=== PATIENT | male | born 1960 | race Caucasian/White ===

== ENCOUNTER 2018-04-28 19:00 | Inpatient (IN) | payer OTHER ==
[~2018-04-28] VITALS: Ht 182.9 cm; Wt 128.8 kg
[~2018-04-28 19:00] MED LIST: ACET325T9 PO; AMLO10TA6 PO; BLOO-1280 MC; CALC200T3 PO; IBUP-1027 PO; LEVO100T5 PO; LISI1TAB7 PO; METF500T16 PO; MIRT45TA PO; NPH,100V SQ; PRAZ5CAP2 PO
--- NOTE | 2018-04-28 21:07 | PHYS DOC ---
Past Medical History Past Medical History: Diabetes-Type II, GERD, High Cholesterol, Hypertension, Hypothyroid, Other Additional Past Medical Histor: edema, PTSD Past Surgical History: No Surgical History Alcohol Use: None Drug Use: None Adult General Chief Complaint Chief Complaint: TOE PROBLEM HPI HPI Patient is a 57 year old [f__sex] who presents with [] Review of Systems Review of Systems Constitutional: Denies fever or chills [] Eyes: Denies change in visual acuity, redness, or eye pain [] HENT: Denies nasal congestion or sore throat [] Respiratory: Denies cough or shortness of breath [] Cardiovascular: No additional information not addressed in HPI [] GI: Denies abdominal pain, nausea, vomiting, bloody stools or diarrhea [] : Denies dysuria or hematuria [] Musculoskeletal: Denies back pain or joint pain [] Integument: Denies rash or skin lesions [] Neurologic: Denies headache, focal weakness or sensory changes [] Endocrine: Denies polyuria or polydipsia [] All other systems were reviewed and found to be within normal limits, except as documented in this note. Allergies Allergies Allergies Coded Allergies Type Severity Reaction Last Updated Verified peanut Allergy Severe swelling in throat 09/06/17 Yes Physical Exam Physical Exam Constitutional: Well developed, well nourished, no acute distress, non-toxic appearance. [] HENT: Normocephalic, atraumatic, bilateral external ears normal, oropharynx moist, no oral exudates, nose normal. [] Eyes: PERRLA, EOMI, conjunctiva normal, no discharge. [] Neck: Normal range of motion, no tenderness, supple, no stridor. [] Cardiovascular:Heart rate regular rhythm, no murmur [] Lungs & Thorax: Bilateral breath sounds clear to auscultation [] Abdomen: Bowel sounds normal, soft, no tenderness, no masses, no pulsatile masses. [] Skin: Warm, dry, no erythema, no rash. [] Back: No tenderness, no CVA tenderness. [] Extremities: No tenderness, no cyanosis, no clubbing, ROM intact, no edema. [] Neurologic: Alert and oriented X 3, normal motor function, normal sensory function, no focal deficits noted. [] Psychologic: Affect normal, judgement normal, mood normal. [] EKG EKG [] Radiology/Procedures Radiology/Procedures [] Course & Med Decision Making Course & Med Decision Making Pertinent Labs and Imaging studies reviewed. (See chart for details) [] Dragon Disclaimer Dragon Disclaimer This electronic medical record was generated, in whole or in part, using a voice recognition dictation system. Departure Departure Impression: Primary Impression: Cellulitis of toe of left foot Disposition: ADMITTED INPATIENT Admitting Physician: Judd Ortiz Condition: GUARDED Referrals: UNKNOWN PCP NAME (PCP) MURPHY GUERIN DO Apr 28, 2018 21:07
[2018-04-28] MEDS ORDERED: ACETAMINOPHEN 325 MG TABLET. PO PRN (21:15)
[2018-04-28] MEDS ORDERED: IV NORMAL SALINE 1000ML BAG 1,000 ML IV ONE (21:15)
[2018-04-28] MEDS ORDERED: fentaNYL PF VIAL 100 MCG/2 ML VIAL IV PRN (21:15)
[2018-04-28] MEDS ORDERED: cefTRIAXone SODIUM 2 GM in IV DEXTROSE 5% 100ML 100 ML IV ONE (21:15)
[2018-04-28] MEDS ORDERED: ACETAMINOPHEN 500 MG TABLET PO ONE (21:15)
[2018-04-28] MEDS ORDERED: DEXTROSE 50% 25 GM / 50ML DISP.SYRIN. IV PRN (21:15)
[2018-04-28] MEDS ORDERED: MUPIROCIN 2 % TOPICAL CREAM 15GM TUBE. TP ONE (21:30)
[2018-04-28 21:56] LABS: BASO # 0.1 x10^3/uL (0.0-0.2); BASO % 1 % (0-3); EOS % 0 % (0-3); HEMATOCRIT 41.1 % (39.0-53.0); HEMOGLOBIN 14.2 g/dL (13.0-17.5); LYMPH # 1.2 x10^3/uL (1.0-4.8); LYMPH % 10 % (24-48); MEAN CORPUSCULAR HEMOGLOBIN 30 pg (25-35); MEAN CORPUSCULAR HGB CONC 35 g/dL (31-37); MEAN CORPUSCULAR VOLUME 86 fL (79-100); MONO % 9 % (0-9); NEUT # 9.6 x10^3uL (1.8-7.7); NEUT % 80 % (31-73); PLATELET COUNT 202 x10^3/uL (140-400); RED BLOOD COUNT 4.78 x10^6/uL (4.30-5.70); RED CELL DISTRIBUTION WIDTH 13.9 % (11.5-14.5)
[2018-04-28] MEDS ORDERED: VANCOMYCIN 2 GM in IV NORMAL SALINE 500ML BAG 500 ML IV ONE (22:00)
[2018-04-28] MEDS ORDERED: FAMOTIDINE 20 MG/2 ML VIAL IVP ONE (22:00)
[2018-04-28] MEDS ORDERED: ONDANSETRON PF 4 MG/2 ML VIAL. IV ONE (22:00)
[2018-04-28 22:12] LABS: CALCIUM 8.9 mg/dL (8.5-10.1); CREATININE 1.8 mg/dL (0.7-1.3); GFR 38.8; POTASSIUM 4.8 mmol/L (3.5-5.1)
[2018-04-28 22:18] LABS: ALBUMIN 4.1 g/dL (3.4-5.0); C-REACTIVE PROTEIN 194.9 mg/L (0-3.3); TOTAL BILIRUBIN 0.8 mg/dL (0.2-1.0); TOTAL PROTEIN 8.3 g/dL (6.4-8.2)
--- NOTE | 2018-04-28 22:22 | RAD ---
Three-view left fifth toe radiographs 04/28/2018 CLINICAL HISTORY: Swelling and redness involving the left fifth toe. An AP digital radiograph of the left foot was obtained. Oblique and lateral digital radiographs of the toes with attention to the left fifth toe were obtained. The patient is post amputation of the left second toe at the MTP joint. No fracture or dislocation of the left foot is seen. Mild to moderate degenerative changes are seen involving the remaining interphalangeal joints and MTP joints of the left foot. Soft tissue swelling is seen involving the dorsal aspect of the left fifth toe. There is no radiographic evidence of osteomyelitis. IMPRESSION: There is no radiographic evidence of osteomyelitis of the left fifth toe. Electronically signed by: Malachi Powell MD (04/28/2018 10:19 PM) [facility]
[2018-04-29 03:00] VITALS: BP 133/68
[2018-04-29 07:00] VITALS: BP 132/75
[2018-04-29] MEDS ORDERED: INSULIN LISPRO 300 UNITS/3 ML INSULN.PEN. SQ SCH (08:00)
[2018-04-29] MEDS ORDERED: INFLUENZA VAX SCREEN BY RX. MC ONE (09:00)
[2018-04-29 11:00] VITALS: BP 133/69
[2018-04-29] MEDS ORDERED: ONDANSETRON ODT 4 MG TAB.RAPDIS. PO PRN (11:45)
[2018-04-29] MEDS ORDERED: CALCIUM CARBONATE 500 MG TAB.CHEW PO PRN (11:45)
[2018-04-29] MEDS ORDERED: cloNIDine HCL 0.1 MG TABLET PO PRN (11:45)
[2018-04-29] MEDS ORDERED: ONDANSETRON PF 4 MG/2 ML VIAL. IV PRN (11:45)
[2018-04-29] MEDS ORDERED: DEXTROSE 50% 25 GM / 50ML DISP.SYRIN. IV PRN (11:45)
[2018-04-29] MEDS: LEVOTHYROXINE 100 MCG TABLET PO SCH (12:07)
[2018-04-29] MEDS: amLODIPine BESYLATE 10 MG TABLET PO SCH (12:07)
[2018-04-29] MEDS: INSULIN LISPRO 300 UNITS/3 ML INSULN.PEN. SQ SCH ×2 (12:13→17:08)
[2018-04-29] MEDS ORDERED: BLOOD SUGAR DIAGNOSTIC MC SCH (13:00)
--- NOTE | 2018-04-29 13:16 | PDOC1 ---
History and Physical Date of Admission Date of Admission DATE: 04/29/18 TIME: 13:11 Identification/Chief Complaint Chief Complaint Left pinky toe wound Source Source: Caregiver, Chart review, Patient History of Present Illness History of Present Illness 57-year-old obese male, on low security intermediate right now, comes in because of left pinky toe wound, is rather deep and looks like a diabetic foot ulcer but actually looks not too bad. It is deep maybe half a CM deep with some packing currently and some mild erythema around the area. No real swelling, no foul-smelling discharge. He has history of second toe amputation on that foot. He is a diabetic with unknown hemoglobin A1c. I am unsure if they check BS in intermediate In any case admitted with consult to ID. I also consulted renal, creatinine 1.8 with a GFR 40s and a bad diabetic. I have reconciled home meds. Continue wound care. Wound has been packed. ID has yet to see. WBC 12 with no fever, ESR elevated at 52 Past Medical History Cardiovascular: HTN, Hyperlipidemia Pulmonary: No pertinent hx GI: No pertinent hx Renal/: Benign prostatic enlarg. Endocrine: Diabetes Past Surgical History Past Surgical History: Other (second left toe amputation) Family History Family History: No Significant Social History Smoke: No ALCOHOL: none Drugs: None Current Problem List Problem List Problems Medical Problems: (1) Cellulitis of toe of left foot Status: Acute Current Medications Current Medications Current Medications Acetaminophen (Tylenol) 500 mg 1X ONCE PO Last administered on 04/28/18at 22:00 ; Start 04/28/18 at 21:15; Stop 04/28/18 at 21:17; Status DC Vancomycin HCl 2 gm/Sodium Chloride 500 ml @ 250 mls/hr 1X ONCE IV Last administered on 04/29/18at 00:17; Start 04/28/18 at 22:00; Stop 04/28/18 at 23:59 ; Status DC Ceftriaxone Sodium 2 gm/ Dextrose 100 ml @ 200 mls/hr Q24H IV ; Start 04/29/18 at 21:00 Fentanyl Citrate (Fentanyl 2ml Vial) 50 mcg PRN Q2HR PRN IV PAIN; Start at 21:15; Stop 04/29/18 at 21:14 Acetaminophen (Tylenol) 650 mg PRN Q4HRS PRN PO FEVER; Start 04/28/18 at 21:15 ; Stop 04/29/18 at 11:36; Status DC Sodium Chloride 1,000 ml @ 1,000 mls/hr 1X ONCE IV Last administered on at 22:00; Start 04/28/18 at 21:15; Stop 04/28/18 at 22:14; Status DC Mupirocin (Bactroban) 1 pelon 1X ONCE TP Last administered on 04/28/18at 21:30; Start 04/28/18 at 21:30; Stop 04/28/18 at 21:31; Status DC Ceftriaxone Sodium 2 gm/ Dextrose 100 ml @ 200 mls/hr ONCE ONCE IV Last administered on 04/28/18at 21:15; Start 04/28/18 at 21:15; Stop 04/28/18 at 21:44 ; Status DC Insulin Human Lispro (HumaLOG) 0-5 UNITS TIDWMEALS SQ ; Start 04/29/18 at 08:00 ; Stop 04/29/18 at 11:35; Status DC Dextrose (Dextrose 50%-Water Syringe) 12.5 gm PRN Q15MIN PRN IV SEE COMMENTS; Start 04/28/18 at 21:15; Stop 04/29/18 at 12:09; Status DC Ondansetron HCl (Zofran) 4 mg 1X ONCE IV Last administered on 04/28/18at 22:00 ; Start 04/28/18 at 22:00; Stop 04/28/18 at 22:01; Status DC Famotidine (Pepcid Vial) 20 mg 1X ONCE IVP Last administered on 04/28/18at 22: 00; Start 04/28/18 at 22:00; Stop 04/28/18 at 22:01; Status DC Info (Do NOT chart on this placeholder) 1 each 1X ONCE MC ; Start 04/29/18 at 09:00; Stop 04/29/18 at 09:01; Status UNV Influenza Virus Vaccine (Afluria Trivalent [id number] Syringe) 0.5 ml ONCE ONCE VAX IM Last administered on 04/29/18at 08:17; Start 04/29/18 at 09:00; Stop at 09:01; Status DC Insulin Human Lispro (HumaLOG) 0-9 UNITS TIDWMEALS SQ Last administered on 04/29at 12:13; Start 04/29/18 at 12:00 Dextrose (Dextrose 50%-Water Syringe) 12.5 gm PRN Q15MIN PRN IV SEE COMMENTS; Start 04/29/18 at 11:45 Ondansetron HCl (Zofran) 4 mg PRN Q6HRS PRN IV NAUSEA/VOMITING; Start 04/29/18 at 11:45 Ondansetron HCl (Zofran Odt) 4 mg PRN Q6HRS PRN PO NAUSEA/VOMITING; Start 04/29 at 11:45 Acetaminophen (Tylenol) 500 mg PRN Q6HRS PRN PO MILD PAIN / TEMP; Start at 11:45 Amlodipine Besylate (Norvasc) 10 mg DAILY PO Last administered on 04/29/18at 12: 07; Start 04/29/18 at 12:00 Calcium Carbonate/ Glycine (Tums) 500 mg TID PRN PRN PO GI SYMPTOMS; Start at 11:45 Levothyroxine Sodium (Synthroid) 100 mcg DAILY07 PO Last administered on at 12:07; Start 04/29/18 at 12:00 Non-Formulary Medication (Blood Sugar Diagnostic (Accu-Chek Guide Test Strip)) 1 each QID MC ; Start 04/29/18 at 13:00; Status UNV Mirtazapine (Remeron) 45 mg QHS PO ; Start 04/29/18 at 21:00 Insulin Glargine (Lantus) 52 units DAILYBFRSUP SQ ; Start 04/29/18 at 17:00 Prazosin HCl (Minipress) 5 mg QHS PO ; Start 04/29/18 at 21:00 Clonidine HCl (Catapres) 0.1 mg PRN Q1HR PRN PO HYPERTENSION, SEE COMMENTS; Start 04/29/18 at 11:45 Active Scripts Active Reported Prazosin Hcl 5 Mg Capsule 1 Cap PO QHS Amlodipine Besylate 10 Mg Tablet 10 Mg PO DAILY Remeron (Mirtazapine) 45 Mg Tablet 1 Tab PO QHS Accu-Chek Guide Test Strip (Blood Sugar Diagnostic) 1 Each Strip 1 Each MC QID Levothyroxine Sodium 100 Mcg Tablet 1 Tab PO DAILY Tums (Calcium Carbonate) 200 Mg Tab.chew 400 Mg PO TID PRN PRN Humulin N (Nph, Human Insulin Isophane) 100 Unit/1 Ml Vial 48 Unit SQ DAILYWBKFT Metformin Hcl 500 Mg Tablet 1,000 Mg PO BIDWMEALS Humulin N (Nph, Human Insulin Isophane) 100 Unit/1 Ml Vial 52 Unit SQ DAILYBFRSUP Lisinopril-Hctz 20-25 Mg Tab (Lisinopril/Hydrochlorothiazide) 1 Each Tablet 1 Tab PO DAILY Allergies Allergies: Coded Allergies: peanut (Verified Allergy, Severe, swelling in throat, 09/06/17) ROS Review of System As per history of present illness, the rest of ROS 14 point negative Physical Exam General: Alert, Oriented X3, Cooperative, No acute distress HEENT: Atraumatic, PERRLA Lungs: Clear to auscultation, Normal air movement Heart: S1S2, RRR, no thrills, no rubs, no gallops, no murmurs Cardiovascular: S1, S2 Abdomen: Normal bowel sounds, Soft, No tenderness, No hepatosplenomegaly, No masses Rectal Exam: not examined PELVIC: Nml ext genitalia, Other Extremities: Other (second left toe amputation- Diabetes wound left pinky toe lateral surface with some packing, mild erythema no foul-smelling discharge, no significant tenderness on exam) Neuro: Normal gait, Normal speech, Strength at 5/5 X4 ext, Normal tone, Sensation intact, Cranial nerves 3-12 NL, Reflexes 2+ Psych/Mental Status: Mental status NL, Mood NL Vitals Vitals Vital Signs Date Time Temp Pulse Resp B/P (MAP) Pulse Ox O2 Delivery O2 Flow Rate FiO2 04/29/18 12:07 98 132/75 04/29/18 11:00 98.4 18 92 Room Air 98.4 Labs Labs Laboratory Tests Test 04/28/18 21:36 04/29/18 07:25 04/29/18 10:38 04/29/18 10:48 White Blood Count 12.0 x10^3/uL (4.0-11.0) Red Blood Count 4.78 x10^6/uL (4.30-5.70) Hemoglobin 14.2 g/dL (13.0-17.5) Hematocrit 41.1 % (39.0-53.0) Mean Corpuscular Volume 86 fL (79-100) Mean Corpuscular Hemoglobin 30 pg (25-35) Mean Corpuscular Hemoglobin Concent 35 g/dL (31-37) Red Cell Distribution Width 13.9 % (11.5-14.5) Platelet Count 202 x10^3/uL (140-400) Neutrophils (%) (Auto) 80 % (31-73) Lymphocytes (%) (Auto) 10 % (24-48) Monocytes (%) (Auto) 9 % (0-9) Eosinophils (%) (Auto) 0 % (0-3) Basophils (%) (Auto) 1 % (0-3) Neutrophils # (Auto) 9.6 x10^3uL (1.8-7.7) Lymphocytes # (Auto) 1.2 x10^3/uL (1.0-4.8) Monocytes # (Auto) 1.0 x10^3/uL (0.0-1.1) Eosinophils # (Auto) 0.0 x10^3/uL (0.0-0.7) Basophils # (Auto) 0.1 x10^3/uL (0.0-0.2) Erythrocyte Sedimentation Rate 52 (0-15) Sodium Level 135 mmol/L (136-145) Potassium Level 4.8 mmol/L (3.5-5.1) Chloride Level 96 mmol/L (98-107) Carbon Dioxide Level 28 mmol/L (21-32) Anion Gap 11 (6-14) Blood Urea Nitrogen 27 mg/dL (8-26) Creatinine 1.8 mg/dL (0.7-1.3) Estimated GFR (Cockcroft-Gault) 38.8 BUN/Creatinine Ratio 15 (6-20) Glucose Level 222 mg/dL (70-99) Lactic Acid Level 1.4 mmol/L (0.4-2.0) Calcium Level 8.9 mg/dL (8.5-10.1) Total Bilirubin 0.8 mg/dL (0.2-1.0) Aspartate Amino Transf (AST/SGOT) 31 U/L (15-37) Alanine Aminotransferase (ALT/SGPT) 35 U/L (16-63) Alkaline Phosphatase 145 U/L (46-116) C-Reactive Protein, Quantitative 194.9 mg/L (0-3.3) Total Protein 8.3 g/dL (6.4-8.2) Albumin 4.1 g/dL (3.4-5.0) Albumin/Globulin Ratio 1.0 (1.0-1.7) Glucose (Fingerstick) 146 mg/dL (70-99) 201 mg/dL (70-99) Uric Acid 6.5 mg/dL (3.5-7.2) Laboratory Tests Test 04/28/18 21:36 04/29/18 07:25 04/29/18 10:38 04/29/18 10:48 White Blood Count 12.0 x10^3/uL (4.0-11.0) Red Blood Count 4.78 x10^6/uL (4.30-5.70) Hemoglobin 14.2 g/dL (13.0-17.5) Hematocrit 41.1 % (39.0-53.0) Mean Corpuscular Volume 86 fL (79-100) Mean Corpuscular Hemoglobin 30 pg (25-35) Mean Corpuscular Hemoglobin Concent 35 g/dL (31-37) Red Cell Distribution Width 13.9 % (11.5-14.5) Platelet Count 202 x10^3/uL (140-400) Neutrophils (%) (Auto) 80 % (31-73) Lymphocytes (%) (Auto) 10 % (24-48) Monocytes (%) (Auto) 9 % (0-9) Eosinophils (%) (Auto) 0 % (0-3) Basophils (%) (Auto) 1 % (0-3) Neutrophils # (Auto) 9.6 x10^3uL (1.8-7.7) Lymphocytes # (Auto) 1.2 x10^3/uL (1.0-4.8) Monocytes # (Auto) 1.0 x10^3/uL (0.0-1.1) Eosinophils # (Auto) 0.0 x10^3/uL (0.0-0.7) Basophils # (Auto) 0.1 x10^3/uL (0.0-0.2) Erythrocyte Sedimentation Rate 52 (0-15) Sodium Level 135 mmol/L (136-145) Potassium Level 4.8 mmol/L (3.5-5.1) Chloride Level 96 mmol/L (98-107) Carbon Dioxide Level 28 mmol/L (21-32) Anion Gap 11 (6-14) Blood Urea Nitrogen 27 mg/dL (8-26) Creatinine 1.8 mg/dL (0.7-1.3) Estimated GFR (Cockcroft-Gault) 38.8 BUN/Creatinine Ratio 15 (6-20) Glucose Level 222 mg/dL (70-99) Lactic Acid Level 1.4 mmol/L (0.4-2.0) Calcium Level 8.9 mg/dL (8.5-10.1) Total Bilirubin 0.8 mg/dL (0.2-1.0) Aspartate Amino Transf (AST/SGOT) 31 U/L (15-37) Alanine Aminotransferase (ALT/SGPT) 35 U/L (16-63) Alkaline Phosphatase 145 U/L (46-116) C-Reactive Protein, Quantitative 194.9 mg/L (0-3.3) Total Protein 8.3 g/dL (6.4-8.2) Albumin 4.1 g/dL (3.4-5.0) Albumin/Globulin Ratio 1.0 (1.0-1.7) Glucose (Fingerstick) 146 mg/dL (70-99) 201 mg/dL (70-99) Uric Acid 6.5 mg/dL (3.5-7.2) VTE Prophylaxis Ordered VTE Prophylaxis Devices: Yes VTE Pharmacological Prophylaxi: Yes Assessment/Plan Assessment/Plan Diabetic wound, left pinky toe, deep wound with packing by wound care Diabetes type 2 with unknown hemoglobin A1c Obesity with a BMI 39 Hypertension, controlled Incarcerated MONTY, VMN possible CKD stage 4 - GFR 30s PLAN: IV antibiotics, I did consult renal and ID Monitor the leukocytosis and increased sedimentation rate Follow cultures Labs again tomorrow Avoid nephrotoxins Local wound care Sliding-scale insulin Check hemoglobin A1c GERMANIA ULLOA MD Apr 29, 2018 13:16
[2018-04-29 15:00] VITALS: BP 124/50
--- NOTE | 2018-04-29 15:55 | PDOC ---
Provider Note Provider Note PT SEEN ID CONSULT DICTATED [id number] FRITZ DAVIDSON MD Apr 29, 2018 15:55
[2018-04-29] MEDS ORDERED: NORMAL SALINE IV SCH (16:30)
[2018-04-29] MEDS ORDERED: DAPTOMYCIN IV SCH (16:30)
[2018-04-29 16:46] LABS: BILIRUBIN,URINE NEGATIVE (NEG); CLARITY,URINE CLEAR; COLOR,URINE YELLOW; NITRITE,URINE NEGATIVE (NEG); PROTEIN,URINE NEGATIVE (NEG-TRACE)
[2018-04-29 17:06] LABS: BACTERIA,URINE 0 /HPF (0-FEW); SQUAMOUS EPITHELIAL CELL,UR FEW /LPF; WBC,URINE 0 /HPF (0-4)
[2018-04-29] MEDS: INSULIN GLARGINE 300 UNITS/3 ML INSULN.PEN. SQ SCH (17:09)
[2018-04-29 19:00] VITALS: BP 112/90
[2018-04-29] MEDS: ACETAMINOPHEN 500 MG TABLET PO PRN (19:08)
[2018-04-29] MEDS: MIRTAZAPINE 15 MG TABLET PO SCH (20:22)
[2018-04-29] MEDS: LACTOBACILLUS RHAMNOSUS GG 1 CAPSULE. PO SCH (20:23)
[2018-04-29] MEDS: NORMAL SALINE IV SCH (20:23)
[2018-04-29] MEDS: DAPTOMYCIN IV SCH (20:23)
[2018-04-29] MEDS: PRAZOSIN 1 MG CAPSULE. PO SCH (20:23)
[2018-04-29] MEDS: cefTRIAXone SODIUM 2 GM in IV DEXTROSE 5% 100ML 100 ML IV SCH (21:09)
--- NOTE | 2018-04-29 22:22 | CONS ---
DATE OF CONSULTATION: 04/29/2018 REFERRING PHYSICIAN: Marquita Hoang M.D. REASON FOR CONSULTATION: Left fifth toe wound with infection. HISTORY OF PRESENT ILLNESS: A 57-year-old male on low security residential, comes in with left fifth toe swelling, pain, redness, drainage, which started a couple of days ago. The patient has a history of amputation of the second toe earlier this year for infection. The patient has diabetes with neuropathy. He had x-ray done of the foot, which did not show any osteomyelitis. Currently, it is packed. His creatinine was high at 1.8. The patient was given empiric ceftriaxone. ESR is elevated at 52. White count at 12. Blood cultures are reported positive for gram-positive cocci in clusters. PAST MEDICAL HISTORY: Hypertension, hyperlipidemia, diabetes, benign prostatic hypertrophy, obesity and left second toe amputation. PAST SURGICAL HISTORY: Left second toe amputation. FAMILY HISTORY: As per HPI. SOCIAL HISTORY: Denies smoking, ETOH or illicit drug use. Currently in long-term. CURRENT MEDICATIONS: Ceftriaxone 2 grams IV daily. Other medications reviewed in medication list. ALLERGIES: PEANUT. REVIEW OF SYSTEMS: Negative except for above in HPI. PHYSICAL EXAMINATION: VITAL SIGNS: Temperature 100.6, current temperature 98.4, pulse 98, respiratory rate 18, blood pressure 133/69 and oxygen saturation 92% on room air. GENERAL: Well-developed and well-nourished male lying comfortably in bed, in no acute distress. HEENT: Anicteric. Oral mucosa moist. NECK: Supple. CHEST: Lungs clear. HEART: S1 and S2. ABDOMEN: Soft. Bowel sounds present. Obese. No hepatosplenomegaly. EXTREMITIES: No edema, no cyanosis and no clubbing. Left fifth toe shows redness, swelling, drainage packed, tenderness. Second toe amputation site looks okay. LABORATORY DATA: WBC 12.0, hemoglobin 14.2, hematocrit 41.1 and platelets 202. ESR 22. Sodium 137, potassium 3.9, chloride 101, bicarb 28, BUN 26, creatinine 1.9 and glucose of 185. Lactate 2.7, now 1.6. Procalcitonin 0.10. HIV antibody in August 2017 negative. IMAGING DATA: Toe x-ray, no radiographic evidence of osteomyelitis of left fifth toe. MICROBIOLOGY: Blood culture positive 1/4 bottles representing two sets drawn positive for gram-positive cocci in clusters. Previous wound culture positive for Prevotella and beta beta-hemolytic Streptococcus group B and Staph aureus, oxacillin sensitive. IMPRESSION: 1. Left fifth toe diabetic foot wound infection. X-ray negative for osteomyelitis. 2. History of left second toe amputation for osteomyelitis. 3. Diabetes mellitus with neuropathy. 4. Gastroesophageal reflux disease. 5. Hypertension/hyperlipidemia. 6. Hypothyroidism. 7. Posttraumatic stress disorder. 8. Acute kidney injury. 9. Gram-positive cocci bacteremia, source left fifth toe infection. RECOMMENDATIONS: 1. Continue empiric ceftriaxone. 2. Start empiric daptomycin. 3. Obtain MRI of left foot. 4. Continue local wound care. 5. Elevate lower extremity. 6. Follow up culture and susceptibility results and labs in the a.m. 7. May need Ortho evaluation. Thank you, Dr. Hoang for consulting Infectious Disease to participate in this patient's care. If you have any questions, do not hesitate to contact me. FRITZ DAVIDSON MD DR: LAUREN/nts JOB#: [id number] / [id number]
[2018-04-29 23:00] VITALS: BP 120/51
[2018-04-30 00:12] LABS: HEMOGLOBIN A1C 7.1 % (4.8-5.6)
[2018-04-30 03:00] VITALS: BP 108/60
[2018-04-30 04:23] LABS: BASO # 0.1 x10^3/uL (0.0-0.2); BASO % 1 % (0-3); EOS # 0.1 x10^3/uL (0.0-0.7); EOS % 2 % (0-3); HEMATOCRIT 38.2 % (39.0-53.0); HEMOGLOBIN 13.2 g/dL (13.0-17.5); LYMPH # 1.7 x10^3/uL (1.0-4.8); LYMPH % 24 % (24-48); MEAN CORPUSCULAR HEMOGLOBIN 30 pg (25-35); MEAN CORPUSCULAR HGB CONC 34 g/dL (31-37); MEAN CORPUSCULAR VOLUME 86 fL (79-100); MONO % 13 % (0-9); NEUT # 4.5 x10^3uL (1.8-7.7); NEUT % 61 % (31-73); PLATELET COUNT 190 x10^3/uL (140-400); RED BLOOD COUNT 4.44 x10^6/uL (4.30-5.70); RED CELL DISTRIBUTION WIDTH 13.7 % (11.5-14.5); WHITE BLOOD COUNT 7.4 x10^3/uL (4.0-11.0)
[2018-04-30 04:53] LABS: ALBUMIN 3.1 g/dL (3.4-5.0); CALCIUM 8.5 mg/dL (8.5-10.1); CREATININE 1.5 mg/dL (0.7-1.3); GFR 47.9; PHOSPHORUS 3.3 mg/dL (2.6-4.7); POTASSIUM 4.2 mmol/L (3.5-5.1)
[2018-04-30] MEDS: LEVOTHYROXINE 100 MCG TABLET PO SCH (06:20)
[2018-04-30] MEDS: ACETAMINOPHEN 500 MG TABLET PO PRN (06:22)
[2018-04-30 07:57] VITALS: BP 102/53
[2018-04-30] MEDS: LACTOBACILLUS RHAMNOSUS GG 1 CAPSULE. PO SCH ×2 (08:14→20:48)
[2018-04-30] MEDS: INSULIN LISPRO 300 UNITS/3 ML INSULN.PEN. SQ SCH ×5 (08:17→17:19)
[2018-04-30] MEDS: amLODIPine BESYLATE 10 MG TABLET PO SCH (09:00)
--- NOTE | 2018-04-30 09:41 | PDOC ---
Infectious Disease Note Subjective: Subjective Pt says feels ok no f/c/n/v/d ROS: ROS Negative except for above. Vital Signs: Vital Signs Vital Signs Date Time Temp Pulse Resp B/P (MAP) Pulse Ox O2 Delivery O2 Flow Rate FiO2 04/30/18 07:57 100.8 92 18 102/53 (69) 92 Room Air 100.8 Physical Exam: PHYSICAL EXAM GENERAL: Well-developed and well-nourished male lying comfortably in bed, in no acute distress. HEENT: Anicteric. Oral mucosa moist. NECK: Supple. CHEST: Lungs clear. HEART: S1 and S2. ABDOMEN: Soft. Bowel sounds present. Obese. No hepatosplenomegaly. EXTREMITIES: No edema, no cyanosis and no clubbing. Left fifth toe shows redness, swelling, drainage packed, tenderness. Second toe amputation site looks okay. Medications: Inpatient Meds: Current Medications Medications (Trade) Dose Ordered Sig/Shoshana Start Time Stop Time Status Last Admin Dose Admin Acetaminophen (Tylenol) 500 mg PRN Q6HRS PRN 04/29/18 11:45 04/30/18 06:22 500 MG Amlodipine Besylate (Norvasc) 10 mg DAILY 04/29/18 12:00 04/29/18 12:07 10 MG Calcium Carbonate/ Glycine (Tums) 500 mg TID PRN PRN 04/29/18 11:45 Ceftriaxone Sodium 2 gm/ Dextrose 100 ml @ 200 mls/hr ONCE ONCE 04/28/18 21:15 04/28/18 21:44 DC 04/28/18 21:15 200 MLS/HR Clonidine HCl (Catapres) 0.1 mg PRN Q1HR PRN 04/29/18 11:45 Daptomycin 770 mg/ Sodium Chloride 50 ml @ 100 mls/hr Q24H 04/29/18 18:00 04/29/18 20:23 100 MLS/HR Dextrose (Dextrose 50%-Water Syringe) 12.5 gm PRN Q15MIN PRN 04/29/18 11:45 Famotidine (Pepcid Vial) 20 mg 1X ONCE 04/28/18 22:00 04/28/18 22:01 DC 04/28/18 22:00 20 MG Fentanyl Citrate (Fentanyl 2ml Vial) 50 mcg PRN Q2HR PRN 04/28/18 21:15 04/29/18 21:14 DC Influenza Virus Vaccine (Afluria Trivalent [id number] Syringe) 0.5 ml ONCE ONCE 04/29/18 09:00 04/29/18 09:01 DC 04/29/18 08:17 0.5 ML Info (Do NOT chart on this placeholder) 1 each 1X ONCE 04/29/18 09:00 04/29/18 09:01 UNV Insulin Glargine (Lantus) 52 units DAILYBFRSUP 04/29/18 17:00 04/29/18 17:09 52 UNITS Insulin Human Lispro (HumaLOG) 0-9 UNITS TIDWMEALS 04/29/18 12:00 04/30/18 08:17 5 UNITS Lactobacillus Rhamnosus (Culturelle) 1 cap BID 04/29/18 21:00 04/30/18 08:14 1 CAP Levothyroxine Sodium (Synthroid) 100 mcg DAILY07 04/29/18 12:00 04/30/18 06:20 100 MCG Mirtazapine (Remeron) 45 mg QHS 04/29/18 21:00 04/29/18 20:22 45 MG Mupirocin (Bactroban) 1 pelon 1X ONCE 04/28/18 21:30 04/28/18 21:31 DC 04/28/18 21:30 1 PELON Non-Formulary Medication (Blood Sugar Diagnostic (Accu-Chek Guide Test Strip)) 1 each QID 04/29/18 13:00 UNV Ondansetron HCl (Zofran Odt) 4 mg PRN Q6HRS PRN 04/29/18 11:45 Ondansetron HCl (Zofran) 4 mg PRN Q6HRS PRN 04/29/18 11:45 Prazosin HCl (Minipress) 5 mg QHS 04/29/18 21:00 04/29/18 20:23 5 MG Sodium Chloride 1,000 ml @ 1,000 mls/hr 1X ONCE 04/28/18 21:15 04/28/18 22:14 DC 04/28/18 22:00 1,000 MLS/HR Vancomycin HCl 2 gm/Sodium Chloride 500 ml @ 250 mls/hr 1X ONCE 04/28/18 22:00 04/28/18 23:59 DC 9/21/18 00:17 250 MLS/HR Labs: Lab Laboratory Tests Test 04/29/18 10:38 04/29/18 10:48 04/29/18 16:00 04/29/18 16:42 Glucose (Fingerstick) 201 mg/dL (70-99) 229 mg/dL (70-99) Hemoglobin A1c 7.1 % (4.8-5.6) Uric Acid 6.5 mg/dL (3.5-7.2) Urine Collection Type Unknown Urine Color Yellow Urine Clarity Clear Urine pH 6.0 Urine Specific [place] 1.015 Urine Protein Negative mg/dL (NEG-TRACE) Urine Glucose (UA) 500 mg/dL (NEG) Urine Ketones (Stick) Negative mg/dL (NEG) Urine Blood Negative (NEG) Urine Nitrite Negative (NEG) Urine Bilirubin Negative (NEG) Urine Urobilinogen Dipstick 1.0 mg/dL (0.2 mg/dL) Urine Leukocyte Esterase Negative (NEG) Urine RBC 1-2 /HPF (0-2) Urine WBC 0 /HPF (0-4) Urine Squamous Epithelial Cells Few /LPF Urine Bacteria 0 /HPF (0-FEW) Test 04/30/18 03:35 04/30/18 07:10 White Blood Count 7.4 x10^3/uL (4.0-11.0) Red Blood Count 4.44 x10^6/uL (4.30-5.70) Hemoglobin 13.2 g/dL (13.0-17.5) Hematocrit 38.2 % (39.0-53.0) Mean Corpuscular Volume 86 fL (79-100) Mean Corpuscular Hemoglobin 30 pg (25-35) Mean Corpuscular Hemoglobin Concent 34 g/dL (31-37) Red Cell Distribution Width 13.7 % (11.5-14.5) Platelet Count 190 x10^3/uL (140-400) Neutrophils (%) (Auto) 61 % (31-73) Lymphocytes (%) (Auto) 24 % (24-48) Monocytes (%) (Auto) 13 % (0-9) Eosinophils (%) (Auto) 2 % (0-3) Basophils (%) (Auto) 1 % (0-3) Neutrophils # (Auto) 4.5 x10^3uL (1.8-7.7) Lymphocytes # (Auto) 1.7 x10^3/uL (1.0-4.8) Monocytes # (Auto) 1.0 x10^3/uL (0.0-1.1) Eosinophils # (Auto) 0.1 x10^3/uL (0.0-0.7) Basophils # (Auto) 0.1 x10^3/uL (0.0-0.2) Sodium Level 137 mmol/L (136-145) Potassium Level 4.2 mmol/L (3.5-5.1) Chloride Level 100 mmol/L (98-107) Carbon Dioxide Level 30 mmol/L (21-32) Anion Gap 7 (6-14) Blood Urea Nitrogen 23 mg/dL (8-26) Creatinine 1.5 mg/dL (0.7-1.3) Estimated GFR (Cockcroft-Gault) 47.9 Glucose Level 208 mg/dL (70-99) Calcium Level 8.5 mg/dL (8.5-10.1) Phosphorus Level 3.3 mg/dL (2.6-4.7) Albumin 3.1 g/dL (3.4-5.0) Glucose (Fingerstick) 204 mg/dL (70-99) Micro RUN DATE: 04/29/18 PAGE 1 RUN TIME: 1534 [facility] [address] [place] [address] Felice Capellan M.D., [employer] PATIENT: MISAEL DON ACCT: [id number] LOC: [address] [place] [address] U : [id number] AGE/SX: 57/M ROOM: [facility] REG : 04/28/[address]: ALBA RICH MD : 1960 BED: 1 DIS : STATUS: ADM IN TLOC: SPEC #: [id number] SHAKEEL: 04/28/18 STATUS: COMP REQ #: [id number] RECD: 04/28/[address]: MURPHY GUERIN DO SOURCE: BLOOD ENTR: 04/28/[address]: DEE PCP NAME [facility]: ORDERED: BCULT Procedure Result BLOOD CULTURE Final GRAM POSITIVE COCCI IN CLUSTERS IN 1 OF 4 BOTTLES(ANAEROBIC);REPRESENTING 2 SETS DRAWN. THE RESULT WAS CALLED TO JAMES GOMEZ(5N)ON 04/29/18 AT 1531 BY Rik ROMANO. THE BLOOD CULTURE HAS BEEN SENT TO LAB [facility] FOR FURTHER WORKUP. Objective: Assessment: 1. Left fifth toe diabetic foot wound infection. X-ray negative for osteomyelitis. 2. History of left second toe amputation for osteomyelitis. 3. Diabetes mellitus with neuropathy. 4. Gastroesophageal reflux disease. 5. Hypertension/hyperlipidemia. 6. Hypothyroidism. 7. Posttraumatic stress disorder. 8. Acute kidney injury. 9. Gram-positive cocci bacteremia, source left fifth toe infection. Plan: Plan of Care Continue empiric ceftriaxone and daptomycin. Local care F/U MRI of left foot. Follow up culture and susceptibility results and labs in the a.m. May need Ortho evaluation. FRITZ DAVIDSON MD Apr 30, 2018 09:40
[2018-04-30 11:24] VITALS: BP 111/59
--- NOTE | 2018-04-30 11:47 | PDOC ---
PROGRESS NOTES Chief Complaint Chief Complaint Diabetic wound, left 5th toe, deep wound Diabetes type 2 hemoglobin A1c 7.1 , good control Obesity with a BMI 39 Hypertension, controlled Incarcerated MONTY, VMN possible CKD stage 4 History of Present Illness History of Present Illness cont the IV antibiotics, MRI toe pending ESR is mildly reassuring cultures Avoid nephrotoxins Local wound care Sliding-scale insulin Vitals Vitals Vital Signs Date Time Temp Pulse Resp B/P (MAP) Pulse Ox O2 Delivery O2 Flow Rate FiO2 04/30/18 11:24 97.7 95 18 111/59 (76) 93 Room Air 97.7 Physical Exam Physical Exam GENERAL: Well-developed and well-nourished male lying comfortably in bed, in no acute distress. HEENT: Anicteric. Oral mucosa moist. NECK: Supple. CHEST: Lungs clear. HEART: S1 and S2. ABDOMEN: Soft. Bowel sounds present. Obese. No hepatosplenomegaly. EXTREMITIES: No edema, no cyanosis and no clubbing. Left fifth toe shows redness, swelling, drainage packed, tenderness. Second toe amputation site looks okay. General: Alert, Oriented X3, Cooperative, No acute distress Heart: Regular rate Abdomen: Normal bowel sounds, Soft, No tenderness, No hepatosplenomegaly, No masses Extremities: Other (second left toe amputation- Diabetes wound left pinky toe lateral surface with some packing, mild erythema no foul-smelling discharge, no significant tenderness on exam) Labs LABS Laboratory Tests Test 04/29/18 16:00 04/29/18 16:42 04/30/18 03:35 04/30/18 07:10 Urine Collection Type Unknown Urine Color Yellow Urine Clarity Clear Urine pH 6.0 Urine Specific [place] 1.015 Urine Protein Negative mg/dL (NEG-TRACE) Urine Glucose (UA) 500 mg/dL (NEG) Urine Ketones (Stick) Negative mg/dL (NEG) Urine Blood Negative (NEG) Urine Nitrite Negative (NEG) Urine Bilirubin Negative (NEG) Urine Urobilinogen Dipstick 1.0 mg/dL (0.2 mg/dL) Urine Leukocyte Esterase Negative (NEG) Urine RBC 1-2 /HPF (0-2) Urine WBC 0 /HPF (0-4) Urine Squamous Epithelial Cells Few /LPF Urine Bacteria 0 /HPF (0-FEW) Glucose (Fingerstick) 229 mg/dL (70-99) 204 mg/dL (70-99) White Blood Count 7.4 x10^3/uL (4.0-11.0) Red Blood Count 4.44 x10^6/uL (4.30-5.70) Hemoglobin 13.2 g/dL (13.0-17.5) Hematocrit 38.2 % (39.0-53.0) Mean Corpuscular Volume 86 fL (79-100) Mean Corpuscular Hemoglobin 30 pg (25-35) Mean Corpuscular Hemoglobin Concent 34 g/dL (31-37) Red Cell Distribution Width 13.7 % (11.5-14.5) Platelet Count 190 x10^3/uL (140-400) Neutrophils (%) (Auto) 61 % (31-73) Lymphocytes (%) (Auto) 24 % (24-48) Monocytes (%) (Auto) 13 % (0-9) Eosinophils (%) (Auto) 2 % (0-3) Basophils (%) (Auto) 1 % (0-3) Neutrophils # (Auto) 4.5 x10^3uL (1.8-7.7) Lymphocytes # (Auto) 1.7 x10^3/uL (1.0-4.8) Monocytes # (Auto) 1.0 x10^3/uL (0.0-1.1) Eosinophils # (Auto) 0.1 x10^3/uL (0.0-0.7) Basophils # (Auto) 0.1 x10^3/uL (0.0-0.2) Sodium Level 137 mmol/L (136-145) Potassium Level 4.2 mmol/L (3.5-5.1) Chloride Level 100 mmol/L (98-107) Carbon Dioxide Level 30 mmol/L (21-32) Anion Gap 7 (6-14) Blood Urea Nitrogen 23 mg/dL (8-26) Creatinine 1.5 mg/dL (0.7-1.3) Estimated GFR (Cockcroft-Gault) 47.9 Glucose Level 208 mg/dL (70-99) Calcium Level 8.5 mg/dL (8.5-10.1) Phosphorus Level 3.3 mg/dL (2.6-4.7) Albumin 3.1 g/dL (3.4-5.0) Test 04/30/18 10:43 Glucose (Fingerstick) 286 mg/dL (70-99) Assessment and Plan Assessmemt and Plan Problems Medical Problems: (1) Cellulitis of toe of left foot Status: Acute Comment Review of Relevant I have reviewed the following items ministerio (where applicable) has been applied. Labs Laboratory Tests Test 04/28/18 21:36 04/29/18 07:25 04/29/18 10:38 04/29/18 10:48 White Blood Count 12.0 x10^3/uL (4.0-11.0) Red Blood Count 4.78 x10^6/uL (4.30-5.70) Hemoglobin 14.2 g/dL (13.0-17.5) Hematocrit 41.1 % (39.0-53.0) Mean Corpuscular Volume 86 fL (79-100) Mean Corpuscular Hemoglobin 30 pg (25-35) Mean Corpuscular Hemoglobin Concent 35 g/dL (31-37) Red Cell Distribution Width 13.9 % (11.5-14.5) Platelet Count 202 x10^3/uL (140-400) Neutrophils (%) (Auto) 80 % (31-73) Lymphocytes (%) (Auto) 10 % (24-48) Monocytes (%) (Auto) 9 % (0-9) Eosinophils (%) (Auto) 0 % (0-3) Basophils (%) (Auto) 1 % (0-3) Neutrophils # (Auto) 9.6 x10^3uL (1.8-7.7) Lymphocytes # (Auto) 1.2 x10^3/uL (1.0-4.8) Monocytes # (Auto) 1.0 x10^3/uL (0.0-1.1) Eosinophils # (Auto) 0.0 x10^3/uL (0.0-0.7) Basophils # (Auto) 0.1 x10^3/uL (0.0-0.2) Erythrocyte Sedimentation Rate 52 (0-15) Sodium Level 135 mmol/L (136-145) Potassium Level 4.8 mmol/L (3.5-5.1) Chloride Level 96 mmol/L (98-107) Carbon Dioxide Level 28 mmol/L (21-32) Anion Gap 11 (6-14) Blood Urea Nitrogen 27 mg/dL (8-26) Creatinine 1.8 mg/dL (0.7-1.3) Estimated GFR (Cockcroft-Gault) 38.8 BUN/Creatinine Ratio 15 (6-20) Glucose Level 222 mg/dL (70-99) Lactic Acid Level 1.4 mmol/L (0.4-2.0) Calcium Level 8.9 mg/dL (8.5-10.1) Total Bilirubin 0.8 mg/dL (0.2-1.0) Aspartate Amino Transf (AST/SGOT) 31 U/L (15-37) Alanine Aminotransferase (ALT/SGPT) 35 U/L (16-63) Alkaline Phosphatase 145 U/L (46-116) C-Reactive Protein, Quantitative 194.9 mg/L (0-3.3) Total Protein 8.3 g/dL (6.4-8.2) Albumin 4.1 g/dL (3.4-5.0) Albumin/Globulin Ratio 1.0 (1.0-1.7) Glucose (Fingerstick) 146 mg/dL (70-99) 201 mg/dL (70-99) Hemoglobin A1c 7.1 % (4.8-5.6) Uric Acid 6.5 mg/dL (3.5-7.2) Test 04/29/18 16:00 04/29/18 16:42 04/30/18 03:35 04/30/18 07:10 Urine Collection Type Unknown Urine Color Yellow Urine Clarity Clear Urine pH 6.0 Urine Specific [place] 1.015 Urine Protein Negative mg/dL (NEG-TRACE) Urine Glucose (UA) 500 mg/dL (NEG) Urine Ketones (Stick) Negative mg/dL (NEG) Urine Blood Negative (NEG) Urine Nitrite Negative (NEG) Urine Bilirubin Negative (NEG) Urine Urobilinogen Dipstick 1.0 mg/dL (0.2 mg/dL) Urine Leukocyte Esterase Negative (NEG) Urine RBC 1-2 /HPF (0-2) Urine WBC 0 /HPF (0-4) Urine Squamous Epithelial Cells Few /LPF Urine Bacteria 0 /HPF (0-FEW) Glucose (Fingerstick) 229 mg/dL (70-99) 204 mg/dL (70-99) White Blood Count 7.4 x10^3/uL (4.0-11.0) Red Blood Count 4.44 x10^6/uL (4.30-5.70) Hemoglobin 13.2 g/dL (13.0-17.5) Hematocrit 38.2 % (39.0-53.0) Mean Corpuscular Volume 86 fL (79-100) Mean Corpuscular Hemoglobin 30 pg (25-35) Mean Corpuscular Hemoglobin Concent 34 g/dL (31-37) Red Cell Distribution Width 13.7 % (11.5-14.5) Platelet Count 190 x10^3/uL (140-400) Neutrophils (%) (Auto) 61 % (31-73) Lymphocytes (%) (Auto) 24 % (24-48) Monocytes (%) (Auto) 13 % (0-9) Eosinophils (%) (Auto) 2 % (0-3) Basophils (%) (Auto) 1 % (0-3) Neutrophils # (Auto) 4.5 x10^3uL (1.8-7.7) Lymphocytes # (Auto) 1.7 x10^3/uL (1.0-4.8) Monocytes # (Auto) 1.0 x10^3/uL (0.0-1.1) Eosinophils # (Auto) 0.1 x10^3/uL (0.0-0.7) Basophils # (Auto) 0.1 x10^3/uL (0.0-0.2) Sodium Level 137 mmol/L (136-145) Potassium Level 4.2 mmol/L (3.5-5.1) Chloride Level 100 mmol/L (98-107) Carbon Dioxide Level 30 mmol/L (21-32) Anion Gap 7 (6-14) Blood Urea Nitrogen 23 mg/dL (8-26) Creatinine 1.5 mg/dL (0.7-1.3) Estimated GFR (Cockcroft-Gault) 47.9 Glucose Level 208 mg/dL (70-99) Calcium Level 8.5 mg/dL (8.5-10.1) Phosphorus Level 3.3 mg/dL (2.6-4.7) Albumin 3.1 g/dL (3.4-5.0) Test 04/30/18 10:43 Glucose (Fingerstick) 286 mg/dL (70-99) Laboratory Tests Test 04/29/18 16:00 04/29/18 16:42 04/30/18 03:35 04/30/18 07:10 Urine Collection Type Unknown Urine Color Yellow Urine Clarity Clear Urine pH 6.0 Urine Specific [place] 1.015 Urine Protein Negative mg/dL (NEG-TRACE) Urine Glucose (UA) 500 mg/dL (NEG) Urine Ketones (Stick) Negative mg/dL (NEG) Urine Blood Negative (NEG) Urine Nitrite Negative (NEG) Urine Bilirubin Negative (NEG) Urine Urobilinogen Dipstick 1.0 mg/dL (0.2 mg/dL) Urine Leukocyte Esterase Negative (NEG) Urine RBC 1-2 /HPF (0-2) Urine WBC 0 /HPF (0-4) Urine Squamous Epithelial Cells Few /LPF Urine Bacteria 0 /HPF (0-FEW) Glucose (Fingerstick) 229 mg/dL (70-99) 204 mg/dL (70-99) White Blood Count 7.4 x10^3/uL (4.0-11.0) Red Blood Count 4.44 x10^6/uL (4.30-5.70) Hemoglobin 13.2 g/dL (13.0-17.5) Hematocrit 38.2 % (39.0-53.0) Mean Corpuscular Volume 86 fL (79-100) Mean Corpuscular Hemoglobin 30 pg (25-35) Mean Corpuscular Hemoglobin Concent 34 g/dL (31-37) Red Cell Distribution Width 13.7 % (11.5-14.5) Platelet Count 190 x10^3/uL (140-400) Neutrophils (%) (Auto) 61 % (31-73) Lymphocytes (%) (Auto) 24 % (24-48) Monocytes (%) (Auto) 13 % (0-9) Eosinophils (%) (Auto) 2 % (0-3) Basophils (%) (Auto) 1 % (0-3) Neutrophils # (Auto) 4.5 x10^3uL (1.8-7.7) Lymphocytes # (Auto) 1.7 x10^3/uL (1.0-4.8) Monocytes # (Auto) 1.0 x10^3/uL (0.0-1.1) Eosinophils # (Auto) 0.1 x10^3/uL (0.0-0.7) Basophils # (Auto) 0.1 x10^3/uL (0.0-0.2) Sodium Level 137 mmol/L (136-145) Potassium Level 4.2 mmol/L (3.5-5.1) Chloride Level 100 mmol/L (98-107) Carbon Dioxide Level 30 mmol/L (21-32) Anion Gap 7 (6-14) Blood Urea Nitrogen 23 mg/dL (8-26) Creatinine 1.5 mg/dL (0.7-1.3) Estimated GFR (Cockcroft-Gault) 47.9 Glucose Level 208 mg/dL (70-99) Calcium Level 8.5 mg/dL (8.5-10.1) Phosphorus Level 3.3 mg/dL (2.6-4.7) Albumin 3.1 g/dL (3.4-5.0) Test 04/30/18 10:43 Glucose (Fingerstick) 286 mg/dL (70-99) Microbiology 04/29/18 Blood Culture - Preliminary, Resulted NO GROWTH AFTER 1 DAY Medications Current Medications Acetaminophen (Tylenol) 500 mg 1X ONCE PO Last administered on 04/28/18at 22:00 ; Start 04/28/18 at 21:15; Stop 04/28/18 at 21:17; Status DC Vancomycin HCl 2 gm/Sodium Chloride 500 ml @ 250 mls/hr 1X ONCE IV Last administered on 04/29/18at 00:17; Start 04/28/18 at 22:00; Stop 04/28/18 at 23:59 ; Status DC Ceftriaxone Sodium 2 gm/ Dextrose 100 ml @ 200 mls/hr Q24H IV Last administered on 04/29/18at 21:09; Start 04/29/18 at 21:00 Fentanyl Citrate (Fentanyl 2ml Vial) 50 mcg PRN Q2HR PRN IV PAIN; Start at 21:15; Stop 04/29/18 at 21:14; Status DC Acetaminophen (Tylenol) 650 mg PRN Q4HRS PRN PO FEVER; Start 04/28/18 at 21:15 ; Stop 04/29/18 at 11:36; Status DC Sodium Chloride 1,000 ml @ 1,000 mls/hr 1X ONCE IV Last administered on at 22:00; Start 04/28/18 at 21:15; Stop 04/28/18 at 22:14; Status DC Mupirocin (Bactroban) 1 pelon 1X ONCE TP Last administered on 04/28/18at 21:30; Start 04/28/18 at 21:30; Stop 04/28/18 at 21:31; Status DC Ceftriaxone Sodium 2 gm/ Dextrose 100 ml @ 200 mls/hr ONCE ONCE IV Last administered on 04/28/18at 21:15; Start 04/28/18 at 21:15; Stop 04/28/18 at 21:44 ; Status DC Insulin Human Lispro (HumaLOG) 0-5 UNITS TIDWMEALS SQ ; Start 04/29/18 at 08:00 ; Stop 04/29/18 at 11:35; Status DC Dextrose (Dextrose 50%-Water Syringe) 12.5 gm PRN Q15MIN PRN IV SEE COMMENTS; Start 04/28/18 at 21:15; Stop 04/29/18 at 12:09; Status DC Ondansetron HCl (Zofran) 4 mg 1X ONCE IV Last administered on 04/28/18at 22:00 ; Start 04/28/18 at 22:00; Stop 04/28/18 at 22:01; Status DC Famotidine (Pepcid Vial) 20 mg 1X ONCE IVP Last administered on 04/28/18at 22: 00; Start 04/28/18 at 22:00; Stop 04/28/18 at 22:01; Status DC Info (Do NOT chart on this placeholder) 1 each 1X ONCE MC ; Start 04/29/18 at 09:00; Stop 04/29/18 at 09:01; Status UNV Influenza Virus Vaccine (Afluria Trivalent [id number] Syringe) 0.5 ml ONCE ONCE VAX IM Last administered on 04/29/18at 08:17; Start 04/29/18 at 09:00; Stop at 09:01; Status DC Insulin Human Lispro (HumaLOG) 0-9 UNITS TIDWMEALS SQ Last administered on 04/30at 08:17; Start 04/29/18 at 12:00 Dextrose (Dextrose 50%-Water Syringe) 12.5 gm PRN Q15MIN PRN IV SEE COMMENTS; Start 04/29/18 at 11:45 Ondansetron HCl (Zofran) 4 mg PRN Q6HRS PRN IV NAUSEA/VOMITING; Start 04/29/18 at 11:45 Ondansetron HCl (Zofran Odt) 4 mg PRN Q6HRS PRN PO NAUSEA/VOMITING; Start 04/29 at 11:45 Acetaminophen (Tylenol) 500 mg PRN Q6HRS PRN PO MILD PAIN / TEMP Last administered on 04/30/18at 06:22; Start 04/29/18 at 11:45 Amlodipine Besylate (Norvasc) 10 mg DAILY PO Last administered on 04/29/18at 12: 07; Start 04/29/18 at 12:00 Calcium Carbonate/ Glycine (Tums) 500 mg TID PRN PRN PO GI SYMPTOMS; Start at 11:45 Levothyroxine Sodium (Synthroid) 100 mcg DAILY07 PO Last administered on at 06:20; Start 04/29/18 at 12:00 Non-Formulary Medication (Blood Sugar Diagnostic (Accu-Chek Guide Test Strip)) 1 each QID MC ; Start 04/29/18 at 13:00; Status UNV Mirtazapine (Remeron) 45 mg QHS PO Last administered on 04/29/18at 20:22; Start 04/29/18 at 21:00 Insulin Glargine (Lantus) 52 units [id number] SQ Last administered on at 17:09; Start 04/29/18 at 17:00 Prazosin HCl (Minipress) 5 mg QHS PO Last administered on 04/29/18at 20:23; Start 04/29/18 at 21:00 Clonidine HCl (Catapres) 0.1 mg PRN Q1HR PRN PO HYPERTENSION, SEE COMMENTS; Start 04/29/18 at 11:45 Daptomycin 770 mg/ Sodium Chloride 50 ml @ 100 mls/hr Q24H IV ; Start 04/29/18 at 16:30; Stop 04/29/18 at 16:55; Status DC Daptomycin 770 mg/ Sodium Chloride 50 ml @ 100 mls/hr Q24H IV Last administered on 04/29/18at 20:23; Start 04/29/18 at 18:00 Lactobacillus Rhamnosus (Culturelle) 1 cap BID PO Last administered on at 08:14; Start 04/29/18 at 21:00 Active Scripts Active Reported Prazosin Hcl 5 Mg Capsule 1 Cap PO QHS Amlodipine Besylate 10 Mg Tablet 10 Mg PO DAILY Remeron (Mirtazapine) 45 Mg Tablet 1 Tab PO QHS Accu-Chek Guide Test Strip (Blood Sugar Diagnostic) 1 Each Strip 1 Each MC QID Levothyroxine Sodium 100 Mcg Tablet 1 Tab PO DAILY Tums (Calcium Carbonate) 200 Mg Tab.chew 400 Mg PO TID PRN PRN Humulin N (Nph, Human Insulin Isophane) 100 Unit/1 Ml Vial 48 Unit SQ [id number] Metformin Hcl 500 Mg Tablet 1,000 Mg PO BIDWMEALS Humulin N (Nph, Human Insulin Isophane) 100 Unit/1 Ml Vial 52 Unit SQ DAILYBFRSUP Lisinopril-Hctz 20-25 Mg Tab (Lisinopril/Hydrochlorothiazide) 1 Each Tablet 1 Tab PO DAILY Vitals/I & O Vital Sign - Last 24 Hours 04/29/18 04/29/18 04/29/18 04/29/18 12:07 15:00 19:00 19:26 Temp 98.5 102.6 98.5 102.6 Pulse 98 104 85 Resp 18 18 B/P (MAP) 132/75 124/50 (74) 112/90 (97) Pulse Ox 91 90 O2 Delivery Room Air Room Air Room Air 04/29/18 04/29/18 04/29/18 04/30/18 20:23 21:53 23:00 03:00 Temp 100.2 99.7 99.7 100.2 99.7 99.7 Pulse 68 87 98 Resp 18 18 B/P (MAP) 112/90 120/51 (74) 108/60 (76) Pulse Ox 92 94 O2 Delivery Room Air Room Air 04/30/18 04/30/18 04/30/18 07:57 08:00 11:24 Temp 100.8 97.7 100.8 97.7 Pulse 92 95 Resp 18 18 B/P (MAP) 102/53 (69) 111/59 (76) Pulse Ox 92 93 O2 Delivery Room Air Room Air Room Air Intake and Output 04/29/18 04/29/18 04/30/18 15:00 23:00 07:00 Intake Total 150 ml 720 ml Balance 150 ml 720 ml HIEN ESPINOZA MD Apr 30, 2018 11:47
--- NOTE | 2018-04-30 14:09 | RAD ---
EXAM: MRI left foot, attention to forefoot DATE: 04/30/2018 3:37 PM CLINICAL HISTORY: LEFT 5TH TOE INFECTION, HX OF 2ND TOE AMPUTATION DUE TO INFECTION, PRIOR XRAYS COMPARISON: None available. TECHNIQUE: Multiplanar multisequence MR imaging of the left foot was performed without IV contrast FINDINGS: Amputation of the second toe at the MTP joint is seen. There is diffuse marrow edema within the proximal phalanx, middle phalanx and distal phalanx of the left small toe. Eccentric T1 marrow signal replacement is seen laterally at the proximal and middle phalanx of the small toe consistent with osteomyelitis. Overlying soft tissue ulceration is seen at the lateral margin. There is also diffuse marrow replacement within the third metatarsal shaft with mild associated edema and erosive change at the third metatarsal head. Diffuse fatty atrophy of intrinsic muscles of the foot with associated edema, possibly denervation myositis. No flexor or extensor tenosynovitis. The visualized flexor and extensor tendons are grossly intact although there is mild tendinosis of the flexor tendons of the second ray. IMPRESSION: 1. Diffuse small toe marrow edema with T1 marrow replacement at the lateral aspect of the proximal and middle phalanx consistent with acute osteomyelitis. 2. There is diffuse T1 signal changes within the third metatarsal head and neck with associated marrow edema and erosive change in the prior radiographs, also likely osteomyelitis. Electronically signed by: Angel Adair MD (04/30/2018 2:06 PM) [facility]
--- NOTE | 2018-04-30 14:59 | PDOC2 ---
CONSULT Date of Consult Date of Consult DATE: 04/30/18 TIME: 14:52 Reason for Consult Reason for Consult: Elevated creatinine Referring Physician Referring Physician: Dr. elizondo Identification/Chief Complaint Chief Complaint Toe wound Source Source: Chart review, Patient History of Present Illness Reason for Visit: Patient is a 57-year-old male from a local [place] who comes in with left fifth toe swelling, pain, redness, drainage, for a couple of days. The patient has a history of amputation of the second toe earlier this year for infection. The patient has diabetes with known neuropathy. He denies any knowledge of retinopathy. X-ray of the foot is negative for osteomyelitis. His creatinine was high at 1.8 but appears to have come down nicely to 1.5. He has been 1.5-1.9 in the past also.. He has been evaluated by infectious disease specialists for Blood cultures which are reportedly positive for gram-positive cocci in clusters. He does have some difficulty urinating by his reports. He claims this has never been checked out. He denies NSAID use Past Medical History Cardiovascular: HTN, Hyperlipidemia Pulmonary: No pertinent hx GI: No pertinent hx Renal/: Chronic renal insuff, Chronic renal failure, Benign prostatic enlarg. Endocrine: Diabetes Past Surgical History Past Surgical History: Other (second left toe amputation) Family History Family History Mom had liver and kidney failure towards the end. He never needed dialysis Family History: No Significant Social History No ALCOHOL: none Drugs: None Current Problem List Problem List Problems Medical Problems: (1) Cellulitis of toe of left foot Status: Acute Current Medications Current Medications Current Medications Acetaminophen (Tylenol) 500 mg 1X ONCE PO Last administered on 04/28/18at 22:00 ; Start 04/28/18 at 21:15; Stop 04/28/18 at 21:17; Status DC Vancomycin HCl 2 gm/Sodium Chloride 500 ml @ 250 mls/hr 1X ONCE IV Last administered on 04/29/18at 00:17; Start 04/28/18 at 22:00; Stop 04/28/18 at 23:59 ; Status DC Ceftriaxone Sodium 2 gm/ Dextrose 100 ml @ 200 mls/hr Q24H IV Last administered on 04/29/18at 21:09; Start 04/29/18 at 21:00 Fentanyl Citrate (Fentanyl 2ml Vial) 50 mcg PRN Q2HR PRN IV PAIN; Start at 21:15; Stop 04/29/18 at 21:14; Status DC Acetaminophen (Tylenol) 650 mg PRN Q4HRS PRN PO FEVER; Start 04/28/18 at 21:15 ; Stop 04/29/18 at 11:36; Status DC Sodium Chloride 1,000 ml @ 1,000 mls/hr 1X ONCE IV Last administered on at 22:00; Start 04/28/18 at 21:15; Stop 04/28/18 at 22:14; Status DC Mupirocin (Bactroban) 1 pelon 1X ONCE TP Last administered on 04/28/18at 21:30; Start 04/28/18 at 21:30; Stop 04/28/18 at 21:31; Status DC Ceftriaxone Sodium 2 gm/ Dextrose 100 ml @ 200 mls/hr ONCE ONCE IV Last administered on 04/28/18at 21:15; Start 04/28/18 at 21:15; Stop 04/28/18 at 21:44 ; Status DC Insulin Human Lispro (HumaLOG) 0-5 UNITS TIDWMEALS SQ ; Start 04/29/18 at 08:00 ; Stop 04/29/18 at 11:35; Status DC Dextrose (Dextrose 50%-Water Syringe) 12.5 gm PRN Q15MIN PRN IV SEE COMMENTS; Start 04/28/18 at 21:15; Stop 04/29/18 at 12:09; Status DC Ondansetron HCl (Zofran) 4 mg 1X ONCE IV Last administered on 04/28/18at 22:00 ; Start 04/28/18 at 22:00; Stop 04/28/18 at 22:01; Status DC Famotidine (Pepcid Vial) 20 mg 1X ONCE IVP Last administered on 04/28/18at 22: 00; Start 04/28/18 at 22:00; Stop 04/28/18 at 22:01; Status DC Info (Do NOT chart on this placeholder) 1 each 1X ONCE MC ; Start 04/29/18 at 09:00; Stop 04/29/18 at 09:01; Status UNV Influenza Virus Vaccine (Afluria Trivalent [id number] Syringe) 0.5 ml ONCE ONCE VAX IM Last administered on 04/29/18at 08:17; Start 04/29/18 at 09:00; Stop at 09:01; Status DC Insulin Human Lispro (HumaLOG) 0-9 UNITS TIDWMEALS SQ Last administered on 04/30at 12:16; Start 04/29/18 at 12:00 Dextrose (Dextrose 50%-Water Syringe) 12.5 gm PRN Q15MIN PRN IV SEE COMMENTS; Start 04/29/18 at 11:45 Ondansetron HCl (Zofran) 4 mg PRN Q6HRS PRN IV NAUSEA/VOMITING; Start 04/29/18 at 11:45 Ondansetron HCl (Zofran Odt) 4 mg PRN Q6HRS PRN PO NAUSEA/VOMITING; Start 04/29 at 11:45 Acetaminophen (Tylenol) 500 mg PRN Q6HRS PRN PO MILD PAIN / TEMP Last administered on 04/30/18at 06:22; Start 04/29/18 at 11:45 Amlodipine Besylate (Norvasc) 10 mg DAILY PO Last administered on 04/29/18at 12: 07; Start 04/29/18 at 12:00 Calcium Carbonate/ Glycine (Tums) 500 mg TID PRN PRN PO GI SYMPTOMS; Start at 11:45 Levothyroxine Sodium (Synthroid) 100 mcg DAILY07 PO Last administered on at 06:20; Start 04/29/18 at 12:00 Non-Formulary Medication (Blood Sugar Diagnostic (Accu-Chek Guide Test Strip)) 1 each QID MC ; Start 04/29/18 at 13:00; Status UNV Mirtazapine (Remeron) 45 mg QHS PO Last administered on 04/29/18at 20:22; Start 04/29/18 at 21:00 Insulin Glargine (Lantus) 52 units DAILYBFRSUP SQ Last administered on at 17:09; Start 04/29/18 at 17:00 Prazosin HCl (Minipress) 5 mg QHS PO Last administered on 04/29/18at 20:23; Start 04/29/18 at 21:00 Clonidine HCl (Catapres) 0.1 mg PRN Q1HR PRN PO HYPERTENSION, SEE COMMENTS; Start 04/29/18 at 11:45 Daptomycin 770 mg/ Sodium Chloride 50 ml @ 100 mls/hr Q24H IV ; Start 04/29/18 at 16:30; Stop 04/29/18 at 16:55; Status DC Daptomycin 770 mg/ Sodium Chloride 50 ml @ 100 mls/hr Q24H IV Last administered on 04/29/18at 20:23; Start 04/29/18 at 18:00 Lactobacillus Rhamnosus (Culturelle) 1 cap BID PO Last administered on at 08:14; Start 04/29/18 at 21:00 Insulin Human Lispro (HumaLOG) 10 units TIDWMEALS SQ Last administered on at 12:16; Start 04/30/18 at 12:00 Active Scripts Active Reported Prazosin Hcl 5 Mg Capsule 1 Cap PO QHS Amlodipine Besylate 10 Mg Tablet 10 Mg PO DAILY Remeron (Mirtazapine) 45 Mg Tablet 1 Tab PO QHS Accu-Chek Guide Test Strip (Blood Sugar Diagnostic) 1 Each Strip 1 Each MC QID Levothyroxine Sodium 100 Mcg Tablet 1 Tab PO DAILY Tums (Calcium Carbonate) 200 Mg Tab.chew 400 Mg PO TID PRN PRN Humulin N (Nph, Human Insulin Isophane) 100 Unit/1 Ml Vial 48 Unit SQ DAILYWBKFT Metformin Hcl 500 Mg Tablet 1,000 Mg PO BIDWMEALS Humulin N (Nph, Human Insulin Isophane) 100 Unit/1 Ml Vial 52 Unit SQ DAILYBFRSUP Lisinopril-Hctz 20-25 Mg Tab (Lisinopril/Hydrochlorothiazide) 1 Each Tablet 1 Tab PO DAILY Allergies Allergies: Coded Allergies: peanut (Verified Allergy, Severe, swelling in throat, 09/06/17) ROS Review of System Binder review of systems negative other than some urinary difficulty as well as toe wound Physical Exam Physical Exam General Appearance: Awake Alert Oriented x 3 In no Distress; obese white male with baldness Eyes: VIsion Unchanged Conjunctiva Normal EN: No EN Drainage Mucous Memb. m oist Neck: no JVD no JVP Supple no Thyromegaly; short thick neck CVS: S1 S2 no Murmur No Gallop No Rub tr Edema Resp: no Rales no Rhonchi no Acc. 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 Current FLuid and E-lyte status does not necessitate emergent need for Dialysis. Watch trend of creatinine with ongoing infection. Small possibility of recovery of renal function is always possible. Check renal sonogram HTN: Current BP meds reviewed. See orders for changes. 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 If angiography is felt to be required then he will need rehydration for the same. Urinary difficulty. May need urology evaluation. Labs Labs Laboratory Tests Test 04/28/18 21:36 04/29/18 00:35 04/29/18 07:25 04/29/18 10:38 White Blood Count 12.0 x10^3/uL (4.0-11.0) Red Blood Count 4.78 x10^6/uL (4.30-5.70) Hemoglobin 14.2 g/dL (13.0-17.5) Hematocrit 41.1 % (39.0-53.0) Mean Corpuscular Volume 86 fL (79-100) Mean Corpuscular Hemoglobin 30 pg (25-35) Mean Corpuscular Hemoglobin Concent 35 g/dL (31-37) Red Cell Distribution Width 13.9 % (11.5-14.5) Platelet Count 202 x10^3/uL (140-400) Neutrophils (%) (Auto) 80 % (31-73) Lymphocytes (%) (Auto) 10 % (24-48) Monocytes (%) (Auto) 9 % (0-9) Eosinophils (%) (Auto) 0 % (0-3) Basophils (%) (Auto) 1 % (0-3) Neutrophils # (Auto) 9.6 x10^3uL (1.8-7.7) Lymphocytes # (Auto) 1.2 x10^3/uL (1.0-4.8) Monocytes # (Auto) 1.0 x10^3/uL (0.0-1.1) Eosinophils # (Auto) 0.0 x10^3/uL (0.0-0.7) Basophils # (Auto) 0.1 x10^3/uL (0.0-0.2) Erythrocyte Sedimentation Rate 52 (0-15) Sodium Level 135 mmol/L (136-145) Potassium Level 4.8 mmol/L (3.5-5.1) Chloride Level 96 mmol/L (98-107) Carbon Dioxide Level 28 mmol/L (21-32) Anion Gap 11 (6-14) Blood Urea Nitrogen 27 mg/dL (8-26) Creatinine 1.8 mg/dL (0.7-1.3) Estimated GFR (Cockcroft-Gault) 38.8 BUN/Creatinine Ratio 15 (6-20) Glucose Level 222 mg/dL (70-99) Lactic Acid Level 1.4 mmol/L (0.4-2.0) Calcium Level 8.9 mg/dL (8.5-10.1) Total Bilirubin 0.8 mg/dL (0.2-1.0) Aspartate Amino Transf (AST/SGOT) 31 U/L (15-37) Alanine Aminotransferase (ALT/SGPT) 35 U/L (16-63) Alkaline Phosphatase 145 U/L (46-116) C-Reactive Protein, Quantitative 194.9 mg/L (0-3.3) Total Protein 8.3 g/dL (6.4-8.2) Albumin 4.1 g/dL (3.4-5.0) Albumin/Globulin Ratio 1.0 (1.0-1.7) Nasal Screen MRSA (PCR) Negative (Negative) Glucose (Fingerstick) 146 mg/dL (70-99) 201 mg/dL (70-99) Test 04/29/18 10:48 04/29/18 16:00 04/29/18 16:42 04/30/18 03:35 Hemoglobin A1c 7.1 % (4.8-5.6) Uric Acid 6.5 mg/dL (3.5-7.2) Urine Collection Type Unknown Urine Color Yellow Urine Clarity Clear Urine pH 6.0 Urine Specific [place] 1.015 Urine Protein Negative mg/dL (NEG-TRACE) Urine Glucose (UA) 500 mg/dL (NEG) Urine Ketones (Stick) Negative mg/dL (NEG) Urine Blood Negative (NEG) Urine Nitrite Negative (NEG) Urine Bilirubin Negative (NEG) Urine Urobilinogen Dipstick 1.0 mg/dL (0.2 mg/dL) Urine Leukocyte Esterase Negative (NEG) Urine RBC 1-2 /HPF (0-2) Urine WBC 0 /HPF (0-4) Urine Squamous Epithelial Cells Few /LPF Urine Bacteria 0 /HPF (0-FEW) Glucose (Fingerstick) 229 mg/dL (70-99) White Blood Count 7.4 x10^3/uL (4.0-11.0) Red Blood Count 4.44 x10^6/uL (4.30-5.70) Hemoglobin 13.2 g/dL (13.0-17.5) Hematocrit 38.2 % (39.0-53.0) Mean Corpuscular Volume 86 fL (79-100) Mean Corpuscular Hemoglobin 30 pg (25-35) Mean Corpuscular Hemoglobin Concent 34 g/dL (31-37) Red Cell Distribution Width 13.7 % (11.5-14.5) Platelet Count 190 x10^3/uL (140-400) Neutrophils (%) (Auto) 61 % (31-73) Lymphocytes (%) (Auto) 24 % (24-48) Monocytes (%) (Auto) 13 % (0-9) Eosinophils (%) (Auto) 2 % (0-3) Basophils (%) (Auto) 1 % (0-3) Neutrophils # (Auto) 4.5 x10^3uL (1.8-7.7) Lymphocytes # (Auto) 1.7 x10^3/uL (1.0-4.8) Monocytes # (Auto) 1.0 x10^3/uL (0.0-1.1) Eosinophils # (Auto) 0.1 x10^3/uL (0.0-0.7) Basophils # (Auto) 0.1 x10^3/uL (0.0-0.2) Sodium Level 137 mmol/L (136-145) Potassium Level 4.2 mmol/L (3.5-5.1) Chloride Level 100 mmol/L (98-107) Carbon Dioxide Level 30 mmol/L (21-32) Anion Gap 7 (6-14) Blood Urea Nitrogen 23 mg/dL (8-26) Creatinine 1.5 mg/dL (0.7-1.3) Estimated GFR (Cockcroft-Gault) 47.9 Glucose Level 208 mg/dL (70-99) Calcium Level 8.5 mg/dL (8.5-10.1) Phosphorus Level 3.3 mg/dL (2.6-4.7) Albumin 3.1 g/dL (3.4-5.0) Test 04/30/18 07:10 04/30/18 10:43 Glucose (Fingerstick) 204 mg/dL (70-99) 286 mg/dL (70-99) Laboratory Tests Test 04/29/18 16:00 04/29/18 16:42 04/30/18 03:35 04/30/18 07:10 Urine Collection Type Unknown Urine Color Yellow Urine Clarity Clear Urine pH 6.0 Urine Specific [place] 1.015 Urine Protein Negative mg/dL (NEG-TRACE) Urine Glucose (UA) 500 mg/dL (NEG) Urine Ketones (Stick) Negative mg/dL (NEG) Urine Blood Negative (NEG) Urine Nitrite Negative (NEG) Urine Bilirubin Negative (NEG) Urine Urobilinogen Dipstick 1.0 mg/dL (0.2 mg/dL) Urine Leukocyte Esterase Negative (NEG) Urine RBC 1-2 /HPF (0-2) Urine WBC 0 /HPF (0-4) Urine Squamous Epithelial Cells Few /LPF Urine Bacteria 0 /HPF (0-FEW) Glucose (Fingerstick) 229 mg/dL (70-99) 204 mg/dL (70-99) White Blood Count 7.4 x10^3/uL (4.0-11.0) Red Blood Count 4.44 x10^6/uL (4.30-5.70) Hemoglobin 13.2 g/dL (13.0-17.5) Hematocrit 38.2 % (39.0-53.0) Mean Corpuscular Volume 86 fL (79-100) Mean Corpuscular Hemoglobin 30 pg (25-35) Mean Corpuscular Hemoglobin Concent 34 g/dL (31-37) Red Cell Distribution Width 13.7 % (11.5-14.5) Platelet Count 190 x10^3/uL (140-400) Neutrophils (%) (Auto) 61 % (31-73) Lymphocytes (%) (Auto) 24 % (24-48) Monocytes (%) (Auto) 13 % (0-9) Eosinophils (%) (Auto) 2 % (0-3) Basophils (%) (Auto) 1 % (0-3) Neutrophils # (Auto) 4.5 x10^3uL (1.8-7.7) Lymphocytes # (Auto) 1.7 x10^3/uL (1.0-4.8) Monocytes # (Auto) 1.0 x10^3/uL (0.0-1.1) Eosinophils # (Auto) 0.1 x10^3/uL (0.0-0.7) Basophils # (Auto) 0.1 x10^3/uL (0.0-0.2) Sodium Level 137 mmol/L (136-145) Potassium Level 4.2 mmol/L (3.5-5.1) Chloride Level 100 mmol/L (98-107) Carbon Dioxide Level 30 mmol/L (21-32) Anion Gap 7 (6-14) Blood Urea Nitrogen 23 mg/dL (8-26) Creatinine 1.5 mg/dL (0.7-1.3) Estimated GFR (Cockcroft-Gault) 47.9 Glucose Level 208 mg/dL (70-99) Calcium Level 8.5 mg/dL (8.5-10.1) Phosphorus Level 3.3 mg/dL (2.6-4.7) Albumin 3.1 g/dL (3.4-5.0) Test 04/30/18 10:43 Glucose (Fingerstick) 286 mg/dL (70-99) Review All relevant outside records, renal labs, imaging studies, telemetry/EKG's were reviewed. ROCKY DAVIDSON MD Apr 30, 2018 14:59
[2018-04-30 15:13] VITALS: BP 111/47
[2018-04-30] MEDS: INSULIN GLARGINE 300 UNITS/3 ML INSULN.PEN. SQ SCH (17:18)
[2018-04-30] MEDS: DAPTOMYCIN IV SCH (18:36)
[2018-04-30] MEDS: NORMAL SALINE IV SCH (18:36)
[2018-04-30 19:00] VITALS: BP 148/78
[2018-04-30 19:40] LABS: BILIRUBIN,URINE NEGATIVE (NEG); CLARITY,URINE CLEAR; COLOR,URINE YELLOW; NITRITE,URINE NEGATIVE (NEG); PROTEIN,URINE NEGATIVE (NEG-TRACE)
[2018-04-30 19:57] LABS: BACTERIA,URINE 0 /HPF (0-FEW); RBC,URINE OCC /HPF (0-2); SQUAMOUS EPITHELIAL CELL,UR FEW /LPF; WBC,URINE 0 /HPF (0-4)
[2018-04-30] MEDS: PRAZOSIN 1 MG CAPSULE. PO SCH (20:48)
[2018-04-30] MEDS: cefTRIAXone SODIUM 2 GM in IV DEXTROSE 5% 100ML 100 ML IV SCH (20:48)
[2018-04-30] MEDS: MIRTAZAPINE 15 MG TABLET PO SCH (20:48)
[2018-04-30 23:00] VITALS: BP 136/70
[2018-05-01 03:00] VITALS: BP 128/78
[2018-05-01] MEDS: LEVOTHYROXINE 100 MCG TABLET PO SCH (05:42)
--- NOTE | 2018-05-01 05:51 | RAD ---
Indication: Acute renal failure. Chronic kidney disease. TECHNIQUE: Grayscale, color Doppler images of the bilateral kidneys and bladder COMPARISON: None FINDINGS: The left kidney measures 12.5 x 5.1 x 5.4 cm without hydronephrosis. Bladder is decompressed limiting optimal evaluation. The right kidney measures 13.0 x 6.5 x 7.0 cm without hydronephrosis. Both kidneys demonstrate mild thickening of the renal cortex. IMPRESSION: 1. No hydronephrosis. 2. Findings of medical renal disease. Electronically signed by: Homar Goodrich DO (05/01/2018 5:47 AM) [id number]
[2018-05-01 07:00] VITALS: BP 100/43
--- NOTE | 2018-05-01 07:05 | PDOC ---
SUBJECTIVE ROS We were asked to see this patient for acute renal failure Patient denies any new complaints at this time. Labs are pending from this morning CVS: no Orthopnea, no CP RESP: no SOB, no LOZANO GI: no Nausea, no Vomiting : no Dysuria, no Urgency OBJECTIVE Vital Signs Vital Signs Date Time Temp Pulse Resp B/P (MAP) Pulse Ox O2 Delivery O2 Flow Rate FiO2 05/01/18 03:00 99.0 85 18 128/78 (95) 92 Room Air 99.0 I & 0 Intake and Output 05/01/18 07:00 Intake Total 150 ml Balance 150 ml IV Total 150 ml # Voids 6 PHYSICAL EXAM Physical Exam General Appearance: Awake Alert Oriented x 3 In no Distress; obese white male with baldness Eyes: VIsion Unchanged Conjunctiva Normal EN: No EN Drainage Mucous Memb. m oist Neck: no JVD no JVP Supple no Thyromegaly; short thick neck CVS: S1 S2 no Murmur No Gallop No Rub tr Edema Resp: no Rales no Rhonchi no Acc. 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 Current FLuid and E-lyte status does not necessitate emergent need for Dialysis. Watch trend of creatinine with ongoing infection. Small possibility of recovery of renal function is always possible once infection is treated. renal sonogram findings noted as below HTN: Current BP meds reviewed. Blood pressures are relatively well controlled currently on present medications. No changes were made due to ongoing febrile illness and infection. Osteomyelitis of the left fifth toe: Defer to infectious disease physicians and specialists. If angiography is felt to be required then he will need prehydration for the same. Urinary difficulty. May need urology evaluation. Glycosuria: This may be contributing to above issue also. Will need better diabetes control especially with ongoing infection COMMENT/RELEVANT DATA Meds Current Medications Medications (Trade) Dose Ordered Sig/[place]oshana Start Time Stop Time Status Last Admin Dose Admin Acetaminophen (Tylenol) 500 mg PRN Q6HRS PRN 04/29/18 11:45 04/30/18 06:22 500 MG Amlodipine Besylate (Norvasc) 10 mg DAILY 04/29/18 12:00 04/29/18 12:07 10 MG Calcium Carbonate/ Glycine (Tums) 500 mg TID PRN PRN 04/29/18 11:45 Ceftriaxone Sodium 2 gm/ Dextrose 100 ml @ 200 mls/hr ONCE ONCE 04/28/18 21:15 04/28/18 21:44 DC 04/28/18 21:15 200 MLS/HR Clonidine HCl (Catapres) 0.1 mg PRN Q1HR PRN 04/29/18 11:45 Daptomycin 770 mg/ Sodium Chloride 50 ml @ 100 mls/hr Q24H 04/29/18 18:00 04/30/18 18:36 100 MLS/HR Dextrose (Dextrose 50%-Water Syringe) 12.5 gm PRN Q15MIN PRN 04/29/18 11:45 Famotidine (Pepcid Vial) 20 mg 1X ONCE 04/28/18 22:00 04/28/18 22:01 DC 04/28/18 22:00 20 MG Fentanyl Citrate (Fentanyl 2ml Vial) 50 mcg PRN Q2HR PRN 04/28/18 21:15 04/29/18 21:14 DC Influenza Virus Vaccine (Afluria Trivalent [id number] Syringe) 0.5 ml ONCE ONCE 04/29/18 09:00 04/29/18 09:01 DC 04/29/18 08:17 0.5 ML Info (Do NOT chart on this placeholder) 1 each 1X ONCE 04/29/18 09:00 04/29/18 09:01 UNV Insulin Glargine (Lantus) 52 units DAILYBFRSUP 04/29/18 17:00 04/30/18 17:18 52 UNITS Insulin Human Lispro (HumaLOG) 10 units TIDWMEALS 04/30/18 12:00 04/30/18 17:19 10 UNITS Lactobacillus Rhamnosus (Culturelle) 1 cap BID 04/29/18 21:00 04/30/18 20:48 1 CAP Levothyroxine Sodium (Synthroid) 100 mcg DAILY07 04/29/18 12:00 05/01/18 05:42 100 MCG Mirtazapine (Remeron) 45 mg QHS 04/29/18 21:00 04/30/18 20:48 45 MG Mupirocin (Bactroban) 1 pelon 1X ONCE 04/28/18 21:30 04/28/18 21:31 DC 04/28/18 21:30 1 PELON Non-Formulary Medication (Blood Sugar Diagnostic (Accu-Chek Guide Test Strip)) 1 each QID 04/29/18 13:00 UNV Ondansetron HCl (Zofran Odt) 4 mg PRN Q6HRS PRN 04/29/18 11:45 Ondansetron HCl (Zofran) 4 mg PRN Q6HRS PRN 04/29/18 11:45 Prazosin HCl (Minipress) 5 mg QHS 04/29/18 21:00 04/30/18 20:48 5 MG Sodium Chloride 1,000 ml @ 1,000 mls/hr 1X ONCE 04/28/18 21:15 04/28/18 22:14 DC 04/28/18 22:00 1,000 MLS/HR Vancomycin HCl 2 gm/Sodium Chloride 500 ml @ 250 mls/hr 1X ONCE 04/28/18 22:00 04/28/18 23:59 DC 04/29/18 00:17 250 MLS/HR Lab Laboratory Tests Test 04/30/18 07:10 04/30/18 10:43 04/30/18 14:30 04/30/18 16:23 Glucose (Fingerstick) 204 mg/dL (70-99) 286 mg/dL (70-99) 247 mg/dL (70-99) Urine Collection Type Unknown Urine Color Yellow Urine Clarity Clear Urine pH 6.0 Urine Specific [place] >=1.030 Urine Protein Negative mg/dL (NEG-TRACE) Urine Glucose (UA) >=1000 mg/dL (NEG) Urine Ketones (Stick) Negative mg/dL (NEG) Urine Blood Negative (NEG) Urine Nitrite Negative (NEG) Urine Bilirubin Negative (NEG) Urine Urobilinogen Dipstick 1.0 mg/dL (0.2 mg/dL) Urine Leukocyte Esterase Negative (NEG) Urine RBC Occ /HPF (0-2) Urine WBC 0 /HPF (0-4) Urine Squamous Epithelial Cells Few /LPF Urine Bacteria 0 /HPF (0-FEW) Test 04/30/18 21:00 Glucose (Fingerstick) 221 mg/dL (70-99) Results All relevant outside records, renal labs, imaging studies, telemetry/EKG's were reviewed. Other The left kidney measures 12.5 x 5.1 x 5.4 cm without hydronephrosis. Bladder is decompressed limiting optimal evaluation. The right kidney measures 13.0 x 6.5 x 7.0 cm without hydronephrosis. Both kidneys demonstrate mild thickening of the renal cortex. IMPRESSION: 1. No hydronephrosis. 2. Findings of medical renal disease. ROCKY DAVIDSON MD May 01, 2018 07:05
[2018-05-01] MEDS ORDERED: MAGNESIUM SULFATE 2GM 50 ML IV PRN (07:15)
[2018-05-01] MEDS: LACTOBACILLUS RHAMNOSUS GG 1 CAPSULE. PO SCH ×2 (08:05→20:28)
[2018-05-01] MEDS: INSULIN LISPRO 300 UNITS/3 ML INSULN.PEN. SQ SCH ×6 (08:09→17:22)
[2018-05-01] MEDS: amLODIPine BESYLATE 10 MG TABLET PO SCH (08:10)
--- NOTE | 2018-05-01 08:44 | PDOC ---
Infectious Disease Note Subjective: Subjective Pt says efelt feverish earlier no n/v/d/sob ROS: ROS Negative except for above. Vital Signs: Vital Signs Vital Signs Date Time Temp Pulse Resp B/P (MAP) Pulse Ox O2 Delivery O2 Flow Rate FiO2 05/01/18 07:00 97.9 88 18 100/43 (62) 94 Room Air 97.9 Physical Exam: PHYSICAL EXAM GENERAL: Well-developed and well-nourished male lying comfortably in bed, in no acute distress. HEENT: Anicteric. Oral mucosa moist. NECK: Supple. CHEST: Lungs clear. HEART: S1 and S2. ABDOMEN: Soft. Bowel sounds present. Obese. No hepatosplenomegaly. EXTREMITIES: No edema, no cyanosis and no clubbing. Left fifth toe shows redness, swelling, drainage packed, tenderness. Second toe amputation site looks okay. Medications: Inpatient Meds: Current Medications Medications (Trade) Dose Ordered Sig/Shoshana Start Time Stop Time Status Last Admin Dose Admin Acetaminophen (Tylenol) 500 mg PRN Q6HRS PRN 04/29/18 11:45 04/30/18 06:22 500 MG Amlodipine Besylate (Norvasc) 10 mg DAILY 04/29/18 12:00 04/29/18 12:07 10 MG Calcium Carbonate/ Glycine (Tums) 500 mg TID PRN PRN 04/29/18 11:45 Ceftriaxone Sodium 2 gm/ Dextrose 100 ml @ 200 mls/hr ONCE ONCE 04/28/18 21:15 04/28/18 21:44 DC 04/28/18 21:15 200 MLS/HR Clonidine HCl (Catapres) 0.1 mg PRN Q1HR PRN 04/29/18 11:45 Daptomycin 770 mg/ Sodium Chloride 50 ml @ 100 mls/hr Q24H 04/29/18 18:00 04/30/18 18:36 100 MLS/HR Dextrose (Dextrose 50%-Water Syringe) 12.5 gm PRN Q15MIN PRN 04/29/18 11:45 Famotidine (Pepcid Vial) 20 mg 1X ONCE 04/28/18 22:00 04/28/18 22:01 DC 04/28/18 22:00 20 MG Fentanyl Citrate (Fentanyl 2ml Vial) 50 mcg PRN Q2HR PRN 04/28/18 21:15 04/29/18 21:14 DC Influenza Virus Vaccine (Afluria Trivalent [id number] Syringe) 0.5 ml ONCE ONCE 04/29/18 09:00 04/29/18 09:01 DC 04/29/18 08:17 0.5 ML Info (Do NOT chart on this placeholder) 1 each 1X ONCE 04/29/18 09:00 04/29/18 09:01 UNV Insulin Glargine (Lantus) 52 units DAILYBFRSUP 04/29/18 17:00 04/30/18 17:18 52 UNITS Insulin Human Lispro (HumaLOG) 10 units TIDWMEALS 04/30/18 12:00 05/01/18 08:10 10 UNITS Lactobacillus Rhamnosus (Culturelle) 1 cap BID 04/29/18 21:00 05/01/18 08:05 1 CAP Levothyroxine Sodium (Synthroid) 100 mcg DAILY07 04/29/18 12:00 05/01/18 05:42 100 MCG Magnesium Sulfate 50 ml @ 25 mls/hr PRN DAILY PRN 05/01/18 07:15 Mirtazapine (Remeron) 45 mg QHS 04/29/18 21:00 04/30/18 20:48 45 MG Mupirocin (Bactroban) 1 pelon 1X ONCE 04/28/18 21:30 04/28/18 21:31 DC 04/28/18 21:30 1 PELON Non-Formulary Medication (Blood Sugar Diagnostic (Accu-Chek Guide Test Strip)) 1 each QID 04/29/18 13:00 UNV Ondansetron HCl (Zofran Odt) 4 mg PRN Q6HRS PRN 04/29/18 11:45 Ondansetron HCl (Zofran) 4 mg PRN Q6HRS PRN 04/29/18 11:45 Prazosin HCl (Minipress) 5 mg QHS 04/29/18 21:00 04/30/18 20:48 5 MG Sodium Chloride 1,000 ml @ 1,000 mls/hr 1X ONCE 04/28/18 21:15 04/28/18 22:14 DC 04/28/18 22:00 1,000 MLS/HR Vancomycin HCl 2 gm/Sodium Chloride 500 ml @ 250 mls/hr 1X ONCE 04/28/18 22:00 04/28/18 23:59 DC 04/29/18 00:17 250 MLS/HR Labs: Lab Laboratory Tests Test 04/30/18 10:43 04/30/18 14:30 04/30/18 16:23 04/30/18 21:00 Glucose (Fingerstick) 286 mg/dL (70-99) 247 mg/dL (70-99) 221 mg/dL (70-99) Urine Collection Type Unknown Urine Color Yellow Urine Clarity Clear Urine pH 6.0 Urine Specific [place] >=1.030 Urine Protein Negative mg/dL (NEG-TRACE) Urine Glucose (UA) >=1000 mg/dL (NEG) Urine Ketones (Stick) Negative mg/dL (NEG) Urine Blood Negative (NEG) Urine Nitrite Negative (NEG) Urine Bilirubin Negative (NEG) Urine Urobilinogen Dipstick 1.0 mg/dL (0.2 mg/dL) Urine Leukocyte Esterase Negative (NEG) Urine RBC Occ /HPF (0-2) Urine WBC 0 /HPF (0-4) Urine Squamous Epithelial Cells Few /LPF Urine Bacteria 0 /HPF (0-FEW) Test 05/01/18 07:06 Glucose (Fingerstick) 154 mg/dL (70-99) Micro RUN DATE: 04/29/18 PAGE 1 RUN TIME: 1534 [facility] [address] [place] [address] Felice Capellan M.D., Final [employer] Supervisor PATIENT: MISAEL DON ACCT: [id number] LOC: [address] [place] [address] U : [id number] AGE/SX: 57/M ROOM: [facility] REG : 04/28/[address]: ALBA RICH MD : 1960 BED: 1 DIS : STATUS: ADM IN TLOC: SPEC #: [id number] SHAKEEL: 04/28/18 STATUS: COMP REQ #: [id number] RECD: 04/28/[address]: MURPHY GUERIN DO SOURCE: BLOOD ENTR: 04/28/[address]: DEE PCP NAME [facility]: ORDERED: BCULT Procedure Result BLOOD CULTURE Final GRAM POSITIVE COCCI IN CLUSTERS IN 1 OF 4 BOTTLES(ANAEROBIC);REPRESENTING 2 SETS DRAWN. THE RESULT WAS CALLED TO JAMES GOMEZ(5N)ON 04/29/18 AT 1531 BY Rik ROMANO. THE BLOOD CULTURE HAS BEEN SENT TO [facility] FOR FURTHER WORKUP. Objective: Assessment: 1. Left fifth toe diabetic foot wound infection/OM 2. History of left second toe amputation for osteomyelitis. 3. Diabetes mellitus with neuropathy. 4. Gastroesophageal reflux disease. 5. Hypertension/hyperlipidemia. 6. Hypothyroidism. 7. Posttraumatic stress disorder. 8. Acute kidney injury. 9. Gram-positive cocci bacteremia, source likely left fifth toe infection. ID and MATTHEW pending Plan: Plan of Care Continue empiric ceftriaxone and daptomycin. Local care consult ortho Follow up culture and susceptibility results and labs in the a.FRITZ Almaraz MD May 01, 2018 08:44
[2018-05-01 11:40] VITALS: BP 107/49
[2018-05-01 12:11] LABS: UR PROTEIN RD 26.3 mg/dL (Not Estab.)
[2018-05-01 15:14] VITALS: BP 118/54
[2018-05-01] MEDS: INSULIN GLARGINE 300 UNITS/3 ML INSULN.PEN. SQ SCH (17:20)
[2018-05-01] MEDS: DAPTOMYCIN IV SCH (17:43)
[2018-05-01] MEDS: NORMAL SALINE IV SCH (17:43)
[2018-05-01 19:00] VITALS: BP 136/72
[2018-05-01] MEDS: ACETAMINOPHEN 500 MG TABLET PO PRN (20:29)
[2018-05-01] MEDS: PRAZOSIN 1 MG CAPSULE. PO SCH (20:29)
[2018-05-01] MEDS: MIRTAZAPINE 15 MG TABLET PO SCH (20:29)
[2018-05-01] MEDS: cefTRIAXone SODIUM 2 GM in IV DEXTROSE 5% 100ML 100 ML IV SCH (20:30)
[2018-05-01 22:50] VITALS: BP 126/75
[2018-05-02] VITALS (14 sets, daily range): BP systolic 96–147; BP diastolic 53–81
--- NOTE | 2018-05-02 01:23 | CONS ---
DATE OF CONSULTATION: 05/01/2018 REQUESTING PHYSICIAN: Dr. Crespo and Dr. Aguiar. REASON FOR CONSULTATION: Left foot osteomyelitis. HISTORY OF PRESENT ILLNESS: The patient is a 57-year-old male who has a history of previous second toe amputation on the left foot about a year ago, who noted that his foot was sore, as it seemed to be rubbing in his shoes and developed some ongoing soreness, redness and eventually drainage, worsening over the past week. He is in a minimum security snf facility currently and has some packing in his left fifth toe and increasing redness over the last couple of days, despite IV antibiotics. PAST MEDICAL HISTORY: Significant for relatively poorly controlled diabetes, hypertension, hyperlipidemia and benign prostatic hypertrophy. PAST SURGICAL HISTORY: Significant for a left second toe amputation about a year ago. FAMILY HISTORY: He denies significant family history. SOCIAL HISTORY: He denies smoking, alcohol or drug use. 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 MEDICATIONS: Medication list is reviewed. ALLERGIES: He has no known drug allergies, BUT DOES HAVE A PEANUT ALLERGY. REVIEW OF SYSTEMS: Significant for the increasing left foot and fifth toe pain and redness over the past week, unresponsive to antibiotics even in the hospital. He actually had a blood sugar checked in the hospital of 245 and has some decreased kidney function. PHYSICAL EXAMINATION: GENERAL: On examination, this is a pleasant, cooperative 57-year-old male, very cooperative and knowledgeable. BMI 38.5. EXTREMITIES: Examination of the left foot reveals significant erythema and multiple areas of compromise of the skin on the left fifth toe, with drainage that appears purulent underlying. He has a well-healed incision from previous left second toe amputation. He is tender over the third metatarsal area on the left and has been for some time, although there is no redness or erythema surrounding that area. Redness surrounding the base of the fifth toe extends about 2 cm around the base of the toe as well. Really, no tenderness over the flexor or extensor tendon sheaths. Normal examination of the contralateral right foot. Normal alignment and stability of bilateral hips, knees and ankles. IMAGING DATA: X-rays of the left foot show some bony changes over the distal phalanges of the left fifth toe as well as over the left third metatarsal head. MRI shows bony edema consistent with osteomyelitis in the area of the phalanges of the left fifth toe and also concern for osteomyelitis in the third metatarsal head with associated significant soft tissue involvement, particularly in the fifth toe. IMPRESSION: 1. Left fifth toe ulceration with osteomyelitis and also osteomyelitis of the left third metatarsal head. 2. History of left second toe amputation. TREATMENT PLAN: I had a long discussion with him. He was very knowledgeable and reasonable, and I explained that osteomyelitis is difficult to treat by intravenous antibiotics alone. He understands this and noted that was the reason that he underwent toe amputation previously. He also has some decreased kidney function and by looks of the blood sugar measurements, pretty poor control of his diabetes overall. White count is 12. Sedimentation rate is very, very elevated at 52. I went over the recommended fifth toe amputation. I also talked to him about the fact that there seemed to be involvement based on the MRI and x-ray of the third metatarsal head. He said he has had previous tenderness in that area as well, but no wound problems as with the fifth toe. He asked if I would have to take all the toes off. I told him that the options really would involve some combination of that; the fifth toe really has to be removed. There is also a possibility of including removal of the third metatarsal head area and preserving the rest of the toe, although the toe then tends to be floppy and may get caught in socks or shoe wear. He questioned whether the third, fourth and fifth toes should all be taken off, particularly if he had a floppy third toe and the fourth toe was the only one remaining. I had discussed with him the mechanical aspects of balance with the great toe and the lesser role of the other toes, particularly at the metatarsal head areas. I told him removal of the fourth toe would not be absolutely necessary from a surgical standpoint, however, it may be from more of a functional standpoint, given that the others would be removed. He would prefer it this way and sees it as an issue where he is avoiding surgery that would likely be necessary later given the involvement that I described. I really cannot disagree with this rationale at present. We went through the risks, benefits and postoperative course of the procedure, including the possibility of additional procedures if he does not achieve adequate healing or infection is persistent. All his questions were answered. He wishes to proceed with surgical evaluation and treatment, which is tentatively planned for tomorrow based on the operating room availability and again tentatively planned for amputation of the fifth, fourth and third toes on the left foot. GIA KHAN MD DR: MERRILL/shiela JOB#: [id number] / [id number]
[2018-05-02 05:46] LABS: ALBUMIN 2.9 g/dL (3.4-5.0); CALCIUM 9.3 mg/dL (8.5-10.1); CREATININE 1.2 mg/dL (0.7-1.3); MAGNESIUM 1.9 mg/dL (1.8-2.4); PHOSPHORUS 3.9 mg/dL (2.6-4.7); POTASSIUM 4.1 mmol/L (3.5-5.1)
[2018-05-02] MEDS: LEVOTHYROXINE 100 MCG TABLET PO SCH (06:10)
[2018-05-02] MEDS ORDERED: IV RINGERS,LACTATED 1000ML 1,000 ML IV SCH (07:46)
[2018-05-02] MEDS ORDERED: MORPHINE SULFATE 2 MG/ML VIAL. IV PRN (08:00)
[2018-05-02] MEDS ORDERED: ONDANSETRON PF 4 MG/2 ML VIAL. IV PRN (08:00)
[2018-05-02] MEDS ORDERED: fentaNYL PF VIAL 100 MCG/2 ML VIAL IV PRN ×2 (08:00)
[2018-05-02] MEDS: INSULIN LISPRO 300 UNITS/3 ML INSULN.PEN. SQ SCH ×6 (08:00→19:26)
[2018-05-02] MEDS ORDERED: LIDOCAINE 1% PF 2 ML VIAL. ID PRN (08:00)
[2018-05-02] MEDS ORDERED: PROCHLORPERAZINE 10 MG/2 ML VIAL. IV PRN (08:00)
[2018-05-02] MEDS ORDERED: HYDROmorphone 2 MG/ML VIAL IV PRN (08:00)
[2018-05-02] MEDS: LACTOBACILLUS RHAMNOSUS GG 1 CAPSULE. PO SCH ×2 (08:26→20:51)
[2018-05-02] MEDS: amLODIPine BESYLATE 10 MG TABLET PO SCH (08:35)
--- NOTE | 2018-05-02 11:26 | PDOC ---
Infectious Disease Note Subjective Subjective Pt says better and awaiting surgery no n/v/d/sob ROS ROS o/w neg Vital Sign Vital Signs Vital Signs Date Time Temp Pulse Resp B/P (MAP) Pulse Ox O2 Delivery O2 Flow Rate FiO2 05/02/18 08:15 Room Air 05/02/18 07:00 98.5 82 18 96/53 (67) 95 98.5 Physical Exam PHYSICAL EXAM GENERAL: Well-developed and well-nourished male lying comfortably in bed, in no acute distress. HEENT: Anicteric. Oral mucosa moist. NECK: Supple. CHEST: Lungs clear. HEART: S1 and S2. ABDOMEN: Soft. Bowel sounds present. Obese. No hepatosplenomegaly. EXTREMITIES: No edema, no cyanosis and no clubbing. Left fifth toe dressed Labs Lab Laboratory Tests Test 05/01/18 16:25 05/01/18 20:54 05/02/18 04:31 05/02/18 04:46 Glucose (Fingerstick) 196 mg/dL (70-99) 257 mg/dL (70-99) Hemoglobin 12.9 g/dL (13.0-17.5) Sodium Level 139 mmol/L (136-145) Potassium Level 4.1 mmol/L (3.5-5.1) Chloride Level 100 mmol/L (98-107) Carbon Dioxide Level 33 mmol/L (21-32) Anion Gap 6 (6-14) Blood Urea Nitrogen 19 mg/dL (8-26) Creatinine 1.2 mg/dL (0.7-1.3) Estimated GFR (Cockcroft-Gault) 62.0 Glucose Level 156 mg/dL (70-99) Calcium Level 9.3 mg/dL (8.5-10.1) Phosphorus Level 3.9 mg/dL (2.6-4.7) Magnesium Level 1.9 mg/dL (1.8-2.4) Albumin 2.9 g/dL (3.4-5.0) Test 05/02/18 07:43 Glucose (Fingerstick) 144 mg/dL (70-99) Micro Microbiology 04/30/18 Blood Culture - Preliminary, Resulted NO GROWTH AFTER 2 DAYS Objective Assessment 1. Left fifth toe diabetic foot wound infection/OM 2. History of left second toe amputation for osteomyelitis. 3. Diabetes mellitus with neuropathy. 4. Gastroesophageal reflux disease. 5. Hypertension/hyperlipidemia. 6. Hypothyroidism. 7. Posttraumatic stress disorder. 8. Acute kidney injury. 9. Gram-positive cocci bacteremia, source likely left fifth toe infection. ID and MATTHEW pending Plan Plan of Care Continue empiric ceftriaxone and daptomycin. Po Flagyl Cont Local care F/u consult ortho - surgery today Follow up culture and susceptibility results and labs in the a.. RAFAEL TOLEDO MD May 02, 2018 11:26
--- NOTE | 2018-05-02 11:49 | PDOC ---
PROGRESS NOTES Chief Complaint Chief Complaint Diabetic wound, left 5th toe, deep wound small toe marrow edema with T1 marrow replacement at the lateral aspect of the proximal and middle phalanx consistent with acute osteomyelitis. diffuse T1 signal changes within the third metatarsal head and neck with associated marrow edema and erosive change in the prior radiographs, also likely osteomyelitis. Diabetes type 2 hemoglobin A1c 7.1 , good control Obesity with a BMI 39 Hypertension, controlled Incarcerated MONTY, VMN possible CKD stage 4 History of Present Illness History of Present Illness cont the IV antibiotics, MRI toe reviewed ESR is mildly reassuring cultures Avoid nephrotoxins Local wound care Sliding-scale insulin surgery later today Vitals Vitals Vital Signs Date Time Temp Pulse Resp B/P (MAP) Pulse Ox O2 Delivery O2 Flow Rate FiO2 05/02/18 08:15 Room Air 05/02/18 07:00 98.5 82 18 96/53 (67) 95 98.5 Physical Exam Physical Exam GENERAL: Well-developed and well-nourished male lying comfortably in bed, in no acute distress. HEENT: Anicteric. Oral mucosa moist. NECK: Supple. CHEST: Lungs clear. HEART: S1 and S2. ABDOMEN: Soft. Bowel sounds present. Obese. No hepatosplenomegaly. EXTREMITIES: No edema, no cyanosis and no clubbing. Left fifth toe shows redness, swelling, drainage packed, tenderness. Second toe amputation site looks okay. General: Alert, Oriented X3, Cooperative, No acute distress Heart: Regular rate, Normal S1, Normal S2 Lungs: Clear Abdomen: Normal bowel sounds, Soft, No tenderness, No hepatosplenomegaly, No masses Extremities: Other (second left toe amputation- Diabetes wound left pinky toe lateral surface with some packing, mild erythema no foul-smelling discharge, no significant tenderness on exam) Labs LABS TECHNIQUE: Multiplanar multisequence MR imaging of the left foot was performed without IV contrast FINDINGS: Amputation of the second toe at the MTP joint is seen. There is diffuse marrow edema within the proximal phalanx, middle phalanx and distal phalanx of the left small toe. Eccentric T1 marrow signal replacement is seen laterally at the proximal and middle phalanx of the small toe consistent with osteomyelitis. Overlying soft tissue ulceration is seen at the lateral margin. There is also diffuse marrow replacement within the third metatarsal shaft with mild associated edema and erosive change at the third metatarsal head. Diffuse fatty atrophy of intrinsic muscles of the foot with associated edema, possibly denervation myositis. No flexor or extensor tenosynovitis. The visualized flexor and extensor tendons are grossly intact although there is mild tendinosis of the flexor tendons of the second ray. IMPRESSION: 1. Diffuse small toe marrow edema with T1 marrow replacement at the lateral aspect of the proximal and middle phalanx consistent with acute osteomyelitis. 2. There is diffuse T1 signal changes within the third metatarsal head and neck with associated marrow edema and erosive change in the prior radiographs, also likely osteomyelitis. Electronically signed by: Angel Adair MD (04/30/2018 2:06 PM) [facility] DICTATED and SIGNED BY: ANGEL ADAIR MD DATE: 04/30/18 [id number] Laboratory Tests Test 05/01/18 16:25 05/01/18 20:54 05/02/18 04:31 05/02/18 04:46 Glucose (Fingerstick) 196 mg/dL (70-99) 257 mg/dL (70-99) Hemoglobin 12.9 g/dL (13.0-17.5) Sodium Level 139 mmol/L (136-145) Potassium Level 4.1 mmol/L (3.5-5.1) Chloride Level 100 mmol/L (98-107) Carbon Dioxide Level 33 mmol/L (21-32) Anion Gap 6 (6-14) Blood Urea Nitrogen 19 mg/dL (8-26) Creatinine 1.2 mg/dL (0.7-1.3) Estimated GFR (Cockcroft-Gault) 62.0 Glucose Level 156 mg/dL (70-99) Calcium Level 9.3 mg/dL (8.5-10.1) Phosphorus Level 3.9 mg/dL (2.6-4.7) Magnesium Level 1.9 mg/dL (1.8-2.4) Albumin 2.9 g/dL (3.4-5.0) Test 05/02/18 07:43 Glucose (Fingerstick) 144 mg/dL (70-99) Assessment and Plan Assessmemt and Plan Problems Medical Problems: (1) Cellulitis of toe of left foot Status: Acute Comment Review of Relevant I have reviewed the following items ministerio (where applicable) has been applied. Labs Laboratory Tests Test 04/30/18 14:30 04/30/18 16:23 04/30/18 21:00 05/01/18 07:06 Urine Collection Type Unknown Urine Color Yellow Urine Clarity Clear Urine pH 6.0 Urine Specific Rockwell >=1.030 Urine Protein 26.3 mg/dL (Not Estab.) Urine Glucose (UA) >=1000 mg/dL (NEG) Urine Ketones (Stick) Negative mg/dL (NEG) Urine Blood Negative (NEG) Urine Nitrite Negative (NEG) Urine Bilirubin Negative (NEG) Urine Urobilinogen Dipstick 1.0 mg/dL (0.2 mg/dL) Urine Leukocyte Esterase Negative (NEG) Urine RBC Occ /HPF (0-2) Urine WBC 0 /HPF (0-4) Urine Squamous Epithelial Cells Few /LPF Urine Bacteria 0 /HPF (0-FEW) Urine Creatinine 162.3 mg/dL (Not Estab.) Urine Protein/Creatinine Ratio 162 mg/g creat (0-200) Glucose (Fingerstick) 247 mg/dL (70-99) 221 mg/dL (70-99) 154 mg/dL (70-99) Test 05/01/18 10:45 05/01/18 16:25 05/01/18 20:54 05/02/18 04:31 Glucose (Fingerstick) 222 mg/dL (70-99) 196 mg/dL (70-99) 257 mg/dL (70-99) Hemoglobin 12.9 g/dL (13.0-17.5) Test 05/02/18 04:46 05/02/18 07:43 Sodium Level 139 mmol/L (136-145) Potassium Level 4.1 mmol/L (3.5-5.1) Chloride Level 100 mmol/L (98-107) Carbon Dioxide Level 33 mmol/L (21-32) Anion Gap 6 (6-14) Blood Urea Nitrogen 19 mg/dL (8-26) Creatinine 1.2 mg/dL (0.7-1.3) Estimated GFR (Cockcroft-Gault) 62.0 Glucose Level 156 mg/dL (70-99) Calcium Level 9.3 mg/dL (8.5-10.1) Phosphorus Level 3.9 mg/dL (2.6-4.7) Magnesium Level 1.9 mg/dL (1.8-2.4) Albumin 2.9 g/dL (3.4-5.0) Glucose (Fingerstick) 144 mg/dL (70-99) Laboratory Tests Test 05/01/18 16:25 05/01/18 20:54 05/02/18 04:31 05/02/18 04:46 Glucose (Fingerstick) 196 mg/dL (70-99) 257 mg/dL (70-99) Hemoglobin 12.9 g/dL (13.0-17.5) Sodium Level 139 mmol/L (136-145) Potassium Level 4.1 mmol/L (3.5-5.1) Chloride Level 100 mmol/L (98-107) Carbon Dioxide Level 33 mmol/L (21-32) Anion Gap 6 (6-14) Blood Urea Nitrogen 19 mg/dL (8-26) Creatinine 1.2 mg/dL (0.7-1.3) Estimated GFR (Cockcroft-Gault) 62.0 Glucose Level 156 mg/dL (70-99) Calcium Level 9.3 mg/dL (8.5-10.1) Phosphorus Level 3.9 mg/dL (2.6-4.7) Magnesium Level 1.9 mg/dL (1.8-2.4) Albumin 2.9 g/dL (3.4-5.0) Test 05/02/18 07:43 Glucose (Fingerstick) 144 mg/dL (70-99) Microbiology 04/30/18 Blood Culture - Preliminary, Resulted NO GROWTH AFTER 2 DAYS Medications Current Medications Acetaminophen (Tylenol) 500 mg 1X ONCE PO Last administered on 04/28/18at 22:00 ; Start 04/28/18 at 21:15; Stop 04/28/18 at 21:17; Status DC Vancomycin HCl 2 gm/Sodium Chloride 500 ml @ 250 mls/hr 1X ONCE IV Last administered on 04/29/18at 00:17; Start 04/28/18 at 22:00; Stop 04/28/18 at 23:59 ; Status DC Ceftriaxone Sodium 2 gm/ Dextrose 100 ml @ 200 mls/hr Q24H IV Last administered on 05/01/18at 20:30; Start 04/29/18 at 21:00 Fentanyl Citrate (Fentanyl 2ml Vial) 50 mcg PRN Q2HR PRN IV PAIN; Start at 21:15; Stop 04/29/18 at 21:14; Status DC Acetaminophen (Tylenol) 650 mg PRN Q4HRS PRN PO FEVER; Start 04/28/18 at 21:15 ; Stop 04/29/18 at 11:36; Status DC Sodium Chloride 1,000 ml @ 1,000 mls/hr 1X ONCE IV Last administered on at 22:00; Start 04/28/18 at 21:15; Stop 04/28/18 at 22:14; Status DC Mupirocin (Bactroban) 1 pelon 1X ONCE TP Last administered on 04/28/18at 21:30; Start 04/28/18 at 21:30; Stop 04/28/18 at 21:31; Status DC Ceftriaxone Sodium 2 gm/ Dextrose 100 ml @ 200 mls/hr ONCE ONCE IV Last administered on 04/28/18at 21:15; Start 04/28/18 at 21:15; Stop 04/28/18 at 21:44 ; Status DC Insulin Human Lispro (HumaLOG) 0-5 UNITS TIDWMEALS SQ ; Start 04/29/18 at 08:00 ; Stop 04/29/18 at 11:35; Status DC Dextrose (Dextrose 50%-Water Syringe) 12.5 gm PRN Q15MIN PRN IV SEE COMMENTS; Start 04/28/18 at 21:15; Stop 04/29/18 at 12:09; Status DC Ondansetron HCl (Zofran) 4 mg 1X ONCE IV Last administered on 04/28/18at 22:00 ; Start 04/28/18 at 22:00; Stop 04/28/18 at 22:01; Status DC Famotidine (Pepcid Vial) 20 mg 1X ONCE IVP Last administered on 04/28/18at 22: 00; Start 04/28/18 at 22:00; Stop 04/28/18 at 22:01; Status DC Info (Do NOT chart on this placeholder) 1 each 1X ONCE MC ; Start 04/29/18 at 09:00; Stop 04/29/18 at 09:01; Status UNV Influenza Virus Vaccine (Afluria Trivalent [id number] Syringe) 0.5 ml ONCE ONCE VAX IM Last administered on 04/29/18at 08:17; Start 04/29/18 at 09:00; Stop at 09:01; Status DC Insulin Human Lispro (HumaLOG) 0-9 UNITS TIDWMEALS SQ Last administered on 05/01at 17:20; Start 04/29/18 at 12:00 Dextrose (Dextrose 50%-Water Syringe) 12.5 gm PRN Q15MIN PRN IV SEE COMMENTS; Start 04/29/18 at 11:45 Ondansetron HCl (Zofran) 4 mg PRN Q6HRS PRN IV NAUSEA/VOMITING; Start 04/29/18 at 11:45 Ondansetron HCl (Zofran Odt) 4 mg PRN Q6HRS PRN PO NAUSEA/VOMITING; Start 04/29 at 11:45 Acetaminophen (Tylenol) 500 mg PRN Q6HRS PRN PO MILD PAIN / TEMP Last administered on 05/01/18at 20:29; Start 04/29/18 at 11:45 Amlodipine Besylate (Norvasc) 10 mg DAILY PO Last administered on 04/29/18at 12: 07; Start 04/29/18 at 12:00 Calcium Carbonate/ Glycine (Tums) 500 mg TID PRN PRN PO GI SYMPTOMS; Start at 11:45 Levothyroxine Sodium (Synthroid) 100 mcg DAILY07 PO Last administered on at 06:10; Start 04/29/18 at 12:00 Non-Formulary Medication (Blood Sugar Diagnostic (Accu-Chek Guide Test Strip)) 1 each QID MC ; Start 04/29/18 at 13:00; Status UNV Mirtazapine (Remeron) 45 mg QHS PO Last administered on 05/01/18at 20:29; Start 04/29/18 at 21:00 Insulin Glargine (Lantus) 52 units DAILYBFRSUP SQ Last administered on at 17:20; Start 04/29/18 at 17:00 Prazosin HCl (Minipress) 5 mg QHS PO Last administered on 05/01/18at 20:29; Start 04/29/18 at 21:00 Clonidine HCl (Catapres) 0.1 mg PRN Q1HR PRN PO HYPERTENSION, SEE COMMENTS; Start 04/29/18 at 11:45 Daptomycin 770 mg/ Sodium Chloride 50 ml @ 100 mls/hr Q24H IV ; Start 04/29/18 at 16:30; Stop 04/29/18 at 16:55; Status DC Daptomycin 770 mg/ Sodium Chloride 50 ml @ 100 mls/hr Q24H IV Last administered on 05/01/18at 17:43; Start 04/29/18 at 18:00 Lactobacillus Rhamnosus (Culturelle) 1 cap BID PO Last administered on at 08:26; Start 04/29/18 at 21:00 Insulin Human Lispro (HumaLOG) 10 units TIDWMEALS SQ Last administered on at 08:28; Start 04/30/18 at 12:00 Magnesium Sulfate 50 ml @ 25 mls/hr PRN DAILY PRN IV for Mag < 1.7 on am labs; Start 05/01/18 at 07:15 Ondansetron HCl (Zofran) 4 mg PRN Q6HRS PRN IV NAUSEA/VOMITING; Start 05/02/18 at 08:00; Stop 05/03/18 at 07:59 Fentanyl Citrate (Fentanyl 2ml Vial) 25 mcg PRN Q5MIN PRN IV MILD PAIN; Start 05/02/18 at 08:00; Stop 05/03/18 at 07:59 Fentanyl Citrate (Fentanyl 2ml Vial) 50 mcg PRN Q5MIN PRN IV MODERATE TO SEVERE PAIN; Start 05/02/18 at 08:00; Stop 05/03/18 at 07:59 Morphine Sulfate (Morphine Sulfate) 1 mg PRN Q10MIN PRN IV SEVERE PAIN; Start 05/02/18 at 08:00; Stop 05/03/18 at 07:59 Ringer's Solution 1,000 ml @ 30 mls/hr Q24H IV ; Start 05/02/18 at 07:46; Stop 05/02/18 at 19:45 Lidocaine HCl (Xylocaine-Mpf 1% 2ml Vial) 2 ml PRN 1X PRN ID PRIOR TO IV START ; Start 05/02/18 at 08:00; Stop 05/03/18 at 07:59 Hydromorphone HCl (Dilaudid) 0.5 mg PRN Q10MIN PRN IV SEV PAIN, Second choice; Start 05/02/18 at 08:00; Stop 05/03/18 at 07:59 Prochlorperazine Edisylate (Compazine) 5 mg PACU PRN PRN IV NAUSEA, MRX1; Start 05/02/18 at 08:00; Stop 05/03/18 at 07:59 Metronidazole (Flagyl) 500 mg Q8HRS PO ; Start 05/02/18 at 14:00 Active Scripts Active Reported Prazosin Hcl 5 Mg Capsule 1 Cap PO QHS Amlodipine Besylate 10 Mg Tablet 10 Mg PO DAILY Remeron (Mirtazapine) 45 Mg Tablet 1 Tab PO QHS Accu-Chek Guide Test Strip (Blood Sugar Diagnostic) 1 Each Strip 1 Each MC QID Levothyroxine Sodium 100 Mcg Tablet 1 Tab PO DAILY Tums (Calcium Carbonate) 200 Mg Tab.chew 400 Mg PO TID PRN PRN Humulin N (Nph, Human Insulin Isophane) 100 Unit/1 Ml Vial 48 Unit SQ DAILYWBKFT Metformin Hcl 500 Mg Tablet 1,000 Mg PO BIDWMEALS Humulin N (Nph, Human Insulin Isophane) 100 Unit/1 Ml Vial 52 Unit SQ DAILYBFRSUP Lisinopril-Hctz 20-25 Mg Tab (Lisinopril/Hydrochlorothiazide) 1 Each Tablet 1 Tab PO DAILY Vitals/I & O Vital Sign - Last 24 Hours 05/01/18 05/01/18 05/01/18 05/01/18 15:14 19:00 19:19 20:29 Temp 97.9 98.6 97.9 98.6 Pulse 83 88 83 Resp 18 18 B/P (MAP) 118/54 (75) 136/72 (93) 118/54 Pulse Ox 95 93 O2 Delivery Room Air Room Air Room Air 05/01/18 05/02/18 05/02/18 05/02/18 22:50 03:00 07:00 08:15 Temp 99.1 97.9 98.5 99.1 97.9 98.5 Pulse 92 86 82 Resp 18 18 18 B/P (MAP) 126/75 (92) 117/70 (86) 96/53 (67) Pulse Ox 94 94 95 O2 Delivery Room Air Room Air Room Air Room Air Intake and Output 05/01/18 05/01/18 05/02/18 15:00 23:00 07:00 Intake Total 820 ml Output Total 575 ml Balance 245 ml ALBA RICH MD May 02, 2018 11:49
--- NOTE | 2018-05-02 12:58 | PDOC ---
SUBJECTIVE ROS No new concerns, awaiting surgery OBJECTIVE Vital Signs Vital Signs Date Time Temp Pulse Resp B/P (MAP) Pulse Ox O2 Delivery O2 Flow Rate FiO2 05/02/18 11:00 98.3 77 18 110/60 (77) 96 Room Air 98.3 I & 0 Intake and Output 05/02/18 07:00 Intake Total 820 ml Output Total 575 ml Balance 245 ml Intake Oral 820 ml Output Urine Total 575 ml # Voids 3 # Bowel Movements 1 PHYSICAL EXAM Physical Exam GENERAL: NAD HEENT: Anicteric. Oral mucosa moist. NECK: Supple. CHEST: Lungs clear. HEART: S1 and S2. ABDOMEN: Soft. Bowel sounds present. Obese. EXTREMITIES: No edema, no cyanosis and no clubbing. 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 Renal Sonogram done HTN:Current BP meds reviewed. Blood pressures are relatively well controlled currently on present medications. No changes made Osteomyelitis of the left fifth toe: Defer to infectious disease physicians and specialists. If angiography is felt to be required then he will need prehydration for the same Amputation planned for this afternoon as per Pt - tentatively of the fifth, fourth and third toes on the left foot Discussed with Patient Renal US- The left kidney measures 12.5 x 5.1 x 5.4 cm without hydronephrosis. Bladder is decompressed limiting optimal evaluation. The right kidney measures 13.0 x 6.5 x 7.0 cm without hydronephrosis. Both kidneys demonstrate mild thickening of the renal cortex. IMPRESSION: 1. No hydronephrosis. 2. Findings of medical renal disease. COMMENT/RELEVANT DATA Meds Current Medications Medications (Trade) Dose Ordered Sig/Shoshana Start Time Stop Time Status Last Admin Dose Admin Acetaminophen (Tylenol) 500 mg PRN Q6HRS PRN 04/29/18 11:45 05/01/18 20:29 500 MG Amlodipine Besylate (Norvasc) 10 mg DAILY 04/29/18 12:00 04/29/18 12:07 10 MG Calcium Carbonate/ Glycine (Tums) 500 mg TID PRN PRN 04/29/18 11:45 Ceftriaxone Sodium 2 gm/ Dextrose 100 ml @ 200 mls/hr ONCE ONCE 04/28/18 21:15 04/28/18 21:44 DC 04/28/18 21:15 200 MLS/HR Clonidine HCl (Catapres) 0.1 mg PRN Q1HR PRN 04/29/18 11:45 Daptomycin 770 mg/ Sodium Chloride 50 ml @ 100 mls/hr Q24H 04/29/18 18:00 05/01/18 17:43 100 MLS/HR Dextrose (Dextrose 50%-Water Syringe) 12.5 gm PRN Q15MIN PRN 04/29/18 11:45 Famotidine (Pepcid Vial) 20 mg 1X ONCE 04/28/18 22:00 04/28/18 22:01 DC 04/28/18 22:00 20 MG Fentanyl Citrate (Fentanyl 2ml Vial) 50 mcg PRN Q5MIN PRN 05/02/18 08:00 05/03/18 07:59 Hydromorphone HCl (Dilaudid) 0.5 mg PRN Q10MIN PRN 05/02/18 08:00 05/03/18 07:59 Influenza Virus Vaccine (Afluria Trivalent [id number] Syringe) 0.5 ml ONCE ONCE 04/29/18 09:00 04/29/18 09:01 DC 04/29/18 08:17 0.5 ML Info (Do NOT chart on this placeholder) 1 each 1X ONCE 04/29/18 09:00 04/29/18 09:01 UNV Insulin Glargine (Lantus) 52 units DAILYBFRSUP 04/29/18 17:00 05/01/18 17:20 52 UNITS Insulin Human Lispro (HumaLOG) 10 units TIDWMEALS 04/30/18 12:00 05/02/18 08:28 10 UNITS Lactobacillus Rhamnosus (Culturelle) 1 cap BID 04/29/18 21:00 05/02/18 08:26 1 CAP Levothyroxine Sodium (Synthroid) 100 mcg DAILY07 04/29/18 12:00 05/02/18 06:10 100 MCG Lidocaine HCl (Xylocaine-Mpf 1% 2ml Vial) 2 ml PRN 1X PRN 05/02/18 08:00 05/03/18 07:59 Magnesium Sulfate 50 ml @ 25 mls/hr PRN DAILY PRN 05/01/18 07:15 Metronidazole (Flagyl) 500 mg Q8HRS 05/02/18 14:00 Mirtazapine (Remeron) 45 mg QHS 04/29/18 21:00 05/01/18 20:29 45 MG Morphine Sulfate (Morphine Sulfate) 1 mg PRN Q10MIN PRN 05/02/18 08:00 05/03/18 07:59 Mupirocin (Bactroban) 1 pelon 1X ONCE 04/28/18 21:30 04/28/18 21:31 DC 04/28/18 21:30 1 PELON Non-Formulary Medication (Blood Sugar Diagnostic (Accu-Chek Guide Test Strip)) 1 each QID 04/29/18 13:00 UNV Ondansetron HCl (Zofran Odt) 4 mg PRN Q6HRS PRN 04/29/18 11:45 Ondansetron HCl (Zofran) 4 mg PRN Q6HRS PRN 05/02/18 08:00 05/03/18 07:59 Prazosin HCl (Minipress) 5 mg QHS 04/29/18 21:00 05/01/18 20:29 5 MG Prochlorperazine Edisylate (Compazine) 5 mg PACU PRN PRN 05/02/18 08:00 05/03/18 07:59 Ringer's Solution 1,000 ml @ 30 mls/hr Q24H 05/02/18 07:46 05/02/18 19:45 Sodium Chloride 1,000 ml @ 1,000 mls/hr 1X ONCE 04/28/18 21:15 04/28/18 22:14 DC 04/28/18 22:00 1,000 MLS/HR Vancomycin HCl 2 gm/Sodium Chloride 500 ml @ 250 mls/hr 1X ONCE 04/28/18 22:00 04/28/18 23:59 DC 04/29/18 00:17 250 MLS/HR Lab Laboratory Tests Test 05/01/18 16:25 05/01/18 20:54 05/02/18 04:31 05/02/18 04:46 Glucose (Fingerstick) 196 mg/dL (70-99) 257 mg/dL (70-99) Hemoglobin 12.9 g/dL (13.0-17.5) Sodium Level 139 mmol/L (136-145) Potassium Level 4.1 mmol/L (3.5-5.1) Chloride Level 100 mmol/L (98-107) Carbon Dioxide Level 33 mmol/L (21-32) Anion Gap 6 (6-14) Blood Urea Nitrogen 19 mg/dL (8-26) Creatinine 1.2 mg/dL (0.7-1.3) Estimated GFR (Cockcroft-Gault) 62.0 Glucose Level 156 mg/dL (70-99) Calcium Level 9.3 mg/dL (8.5-10.1) Phosphorus Level 3.9 mg/dL (2.6-4.7) Magnesium Level 1.9 mg/dL (1.8-2.4) Albumin 2.9 g/dL (3.4-5.0) Test 05/02/18 07:43 05/02/18 11:54 Glucose (Fingerstick) 144 mg/dL (70-99) 211 mg/dL (70-99) Results All relevant outside records, renal labs, imaging studies, telemetry/EKG's were reviewed. IVET MARTINES MD May 02, 2018 12:58
[2018-05-02] MEDS: metroNIDAZOLE 500 MG TABLET PO SCH ×2 (14:00→20:51)
--- NOTE | 2018-05-02 15:16 | PDOC ---
PROGRESS NOTES Chief Complaint Chief Complaint LATE ENTRY, pt seen 05/01 Diabetic wound, left 5th toe, deep wound Diabetes type 2 hemoglobin A1c 7.1 , good control Obesity with a BMI 39 Hypertension, controlled Incarcerated MONTY, VMN possible CKD stage 4 History of Present Illness History of Present Illness cont IV abx, MRI showed osteo, ortho consulted. cultures Avoid nephrotoxins Local wound care Sliding-scale insulin Vitals Vitals Vital Signs Date Time Temp Pulse Resp B/P (MAP) Pulse Ox O2 Delivery O2 Flow Rate FiO2 05/02/18 11:00 98.3 77 18 110/60 (77) 96 Room Air 98.3 Physical Exam Physical Exam GENERAL: Well-developed and well-nourished male lying comfortably in bed, in no acute distress. HEENT: Anicteric. Oral mucosa moist. NECK: Supple. CHEST: Lungs clear. HEART: S1 and S2. ABDOMEN: Soft. Bowel sounds present. Obese. No hepatosplenomegaly. EXTREMITIES: No edema, no cyanosis and no clubbing. Left fifth toe dressed General: Alert, Oriented X3, Cooperative, No acute distress Heart: Regular rate Abdomen: Normal bowel sounds, Soft, No tenderness, No hepatosplenomegaly, No masses Extremities: Other (second left toe amputation- Diabetes wound left pinky toe lateral surface with some packing, mild erythema no foul-smelling discharge, no significant tenderness on exam) Labs LABS Laboratory Tests Test 05/01/18 16:25 05/01/18 20:54 05/02/18 04:31 05/02/18 04:46 Glucose (Fingerstick) 196 mg/dL (70-99) 257 mg/dL (70-99) Hemoglobin 12.9 g/dL (13.0-17.5) Sodium Level 139 mmol/L (136-145) Potassium Level 4.1 mmol/L (3.5-5.1) Chloride Level 100 mmol/L (98-107) Carbon Dioxide Level 33 mmol/L (21-32) Anion Gap 6 (6-14) Blood Urea Nitrogen 19 mg/dL (8-26) Creatinine 1.2 mg/dL (0.7-1.3) Estimated GFR (Cockcroft-Gault) 62.0 Glucose Level 156 mg/dL (70-99) Calcium Level 9.3 mg/dL (8.5-10.1) Phosphorus Level 3.9 mg/dL (2.6-4.7) Magnesium Level 1.9 mg/dL (1.8-2.4) Albumin 2.9 g/dL (3.4-5.0) Test 05/02/18 07:43 05/02/18 11:54 Glucose (Fingerstick) 144 mg/dL (70-99) 211 mg/dL (70-99) Assessment and Plan Assessmemt and Plan Problems Medical Problems: (1) Cellulitis of toe of left foot Status: Acute Comment Review of Relevant I have reviewed the following items ministerio (where applicable) has been applied. Labs Laboratory Tests Test 04/30/18 16:23 04/30/18 21:00 05/01/18 07:06 05/01/18 10:45 Glucose (Fingerstick) 247 mg/dL (70-99) 221 mg/dL (70-99) 154 mg/dL (70-99) 222 mg/dL (70-99) Test 05/01/18 16:25 05/01/18 20:54 05/02/18 04:31 05/02/18 04:46 Glucose (Fingerstick) 196 mg/dL (70-99) 257 mg/dL (70-99) Hemoglobin 12.9 g/dL (13.0-17.5) Sodium Level 139 mmol/L (136-145) Potassium Level 4.1 mmol/L (3.5-5.1) Chloride Level 100 mmol/L (98-107) Carbon Dioxide Level 33 mmol/L (21-32) Anion Gap 6 (6-14) Blood Urea Nitrogen 19 mg/dL (8-26) Creatinine 1.2 mg/dL (0.7-1.3) Estimated GFR (Cockcroft-Gault) 62.0 Glucose Level 156 mg/dL (70-99) Calcium Level 9.3 mg/dL (8.5-10.1) Phosphorus Level 3.9 mg/dL (2.6-4.7) Magnesium Level 1.9 mg/dL (1.8-2.4) Albumin 2.9 g/dL (3.4-5.0) Test 05/02/18 07:43 05/02/18 11:54 Glucose (Fingerstick) 144 mg/dL (70-99) 211 mg/dL (70-99) Laboratory Tests Test 05/01/18 16:25 05/01/18 20:54 05/02/18 04:31 05/02/18 04:46 Glucose (Fingerstick) 196 mg/dL (70-99) 257 mg/dL (70-99) Hemoglobin 12.9 g/dL (13.0-17.5) Sodium Level 139 mmol/L (136-145) Potassium Level 4.1 mmol/L (3.5-5.1) Chloride Level 100 mmol/L (98-107) Carbon Dioxide Level 33 mmol/L (21-32) Anion Gap 6 (6-14) Blood Urea Nitrogen 19 mg/dL (8-26) Creatinine 1.2 mg/dL (0.7-1.3) Estimated GFR (Cockcroft-Gault) 62.0 Glucose Level 156 mg/dL (70-99) Calcium Level 9.3 mg/dL (8.5-10.1) Phosphorus Level 3.9 mg/dL (2.6-4.7) Magnesium Level 1.9 mg/dL (1.8-2.4) Albumin 2.9 g/dL (3.4-5.0) Test 05/02/18 07:43 05/02/18 11:54 Glucose (Fingerstick) 144 mg/dL (70-99) 211 mg/dL (70-99) Microbiology 04/30/18 Blood Culture - Preliminary, Resulted NO GROWTH AFTER 2 DAYS Medications Current Medications Acetaminophen (Tylenol) 500 mg 1X ONCE PO Last administered on 04/28/18at 22:00 ; Start 04/28/18 at 21:15; Stop 04/28/18 at 21:17; Status DC Vancomycin HCl 2 gm/Sodium Chloride 500 ml @ 250 mls/hr 1X ONCE IV Last administered on 04/29/18at 00:17; Start 04/28/18 at 22:00; Stop 04/28/18 at 23:59 ; Status DC Ceftriaxone Sodium 2 gm/ Dextrose 100 ml @ 200 mls/hr Q24H IV Last administered on 05/01/18at 20:30; Start 04/29/18 at 21:00 Fentanyl Citrate (Fentanyl 2ml Vial) 50 mcg PRN Q2HR PRN IV PAIN; Start at 21:15; Stop 04/29/18 at 21:14; Status DC Acetaminophen (Tylenol) 650 mg PRN Q4HRS PRN PO FEVER; Start 04/28/18 at 21:15 ; Stop 04/29/18 at 11:36; Status DC Sodium Chloride 1,000 ml @ 1,000 mls/hr 1X ONCE IV Last administered on at 22:00; Start 04/28/18 at 21:15; Stop 04/28/18 at 22:14; Status DC Mupirocin (Bactroban) 1 pelon 1X ONCE TP Last administered on 04/28/18at 21:30; Start 04/28/18 at 21:30; Stop 04/28/18 at 21:31; Status DC Ceftriaxone Sodium 2 gm/ Dextrose 100 ml @ 200 mls/hr ONCE ONCE IV Last administered on 04/28/18at 21:15; Start 04/28/18 at 21:15; Stop 04/28/18 at 21:44 ; Status DC Insulin Human Lispro (HumaLOG) 0-5 UNITS TIDWMEALS SQ ; Start 04/29/18 at 08:00 ; Stop 04/29/18 at 11:35; Status DC Dextrose (Dextrose 50%-Water Syringe) 12.5 gm PRN Q15MIN PRN IV SEE COMMENTS; Start 04/28/18 at 21:15; Stop 04/29/18 at 12:09; Status DC Ondansetron HCl (Zofran) 4 mg 1X ONCE IV Last administered on 04/28/18at 22:00 ; Start 04/28/18 at 22:00; Stop 04/28/18 at 22:01; Status DC Famotidine (Pepcid Vial) 20 mg 1X ONCE IVP Last administered on 04/28/18at 22: 00; Start 04/28/18 at 22:00; Stop 04/28/18 at 22:01; Status DC Info (Do NOT chart on this placeholder) 1 each 1X ONCE MC ; Start 04/29/18 at 09:00; Stop 04/29/18 at 09:01; Status UNV Influenza Virus Vaccine (Afluria Trivalent [id number] Syringe) 0.5 ml ONCE ONCE VAX IM Last administered on 04/29/18at 08:17; Start 04/29/18 at 09:00; Stop at 09:01; Status DC Insulin Human Lispro (HumaLOG) 0-9 UNITS TIDWMEALS SQ Last administered on 05/02at 12:59; Start 04/29/18 at 12:00 Dextrose (Dextrose 50%-Water Syringe) 12.5 gm PRN Q15MIN PRN IV SEE COMMENTS; Start 04/29/18 at 11:45 Ondansetron HCl (Zofran) 4 mg PRN Q6HRS PRN IV NAUSEA/VOMITING; Start 04/29/18 at 11:45 Ondansetron HCl (Zofran Odt) 4 mg PRN Q6HRS PRN PO NAUSEA/VOMITING; Start 04/29 at 11:45 Acetaminophen (Tylenol) 500 mg PRN Q6HRS PRN PO MILD PAIN / TEMP Last administered on 05/01/18at 20:29; Start 04/29/18 at 11:45 Amlodipine Besylate (Norvasc) 10 mg DAILY PO Last administered on 04/29/18at 12: 07; Start 04/29/18 at 12:00 Calcium Carbonate/ Glycine (Tums) 500 mg TID PRN PRN PO GI SYMPTOMS; Start at 11:45 Levothyroxine Sodium (Synthroid) 100 mcg DAILY07 PO Last administered on at 06:10; Start 04/29/18 at 12:00 Non-Formulary Medication (Blood Sugar Diagnostic (Accu-Chek Guide Test Strip)) 1 each QID MC ; Start 04/29/18 at 13:00; Status UNV Mirtazapine (Remeron) 45 mg QHS PO Last administered on 05/01/18at 20:29; Start 04/29/18 at 21:00 Insulin Glargine (Lantus) 52 units DAILYBFRSUP SQ Last administered on at 17:20; Start 04/29/18 at 17:00 Prazosin HCl (Minipress) 5 mg QHS PO Last administered on 05/01/18at 20:29; Start 04/29/18 at 21:00 Clonidine HCl (Catapres) 0.1 mg PRN Q1HR PRN PO HYPERTENSION, SEE COMMENTS; Start 04/29/18 at 11:45 Daptomycin 770 mg/ Sodium Chloride 50 ml @ 100 mls/hr Q24H IV ; Start 04/29/18 at 16:30; Stop 04/29/18 at 16:55; Status DC Daptomycin 770 mg/ Sodium Chloride 50 ml @ 100 mls/hr Q24H IV Last administered on 05/01/18at 17:43; Start 04/29/18 at 18:00 Lactobacillus Rhamnosus (Culturelle) 1 cap BID PO Last administered on at 08:26; Start 04/29/18 at 21:00 Insulin Human Lispro (HumaLOG) 10 units TIDWMEALS SQ Last administered on at 08:28; Start 04/30/18 at 12:00 Magnesium Sulfate 50 ml @ 25 mls/hr PRN DAILY PRN IV for Mag < 1.7 on am labs; Start 05/01/18 at 07:15 Ondansetron HCl (Zofran) 4 mg PRN Q6HRS PRN IV NAUSEA/VOMITING; Start 05/02/18 at 08:00; Stop 05/03/18 at 07:59 Fentanyl Citrate (Fentanyl 2ml Vial) 25 mcg PRN Q5MIN PRN IV MILD PAIN; Start 05/02/18 at 08:00; Stop 05/03/18 at 07:59 Fentanyl Citrate (Fentanyl 2ml Vial) 50 mcg PRN Q5MIN PRN IV MODERATE TO SEVERE PAIN; Start 05/02/18 at 08:00; Stop 05/03/18 at 07:59 Morphine Sulfate (Morphine Sulfate) 1 mg PRN Q10MIN PRN IV SEVERE PAIN; Start 05/02/18 at 08:00; Stop 05/03/18 at 07:59 Ringer's Solution 1,000 ml @ 30 mls/hr Q24H IV ; Start 05/02/18 at 07:46; Stop 05/02/18 at 19:45 Lidocaine HCl (Xylocaine-Mpf 1% 2ml Vial) 2 ml PRN 1X PRN ID PRIOR TO IV START ; Start 05/02/18 at 08:00; Stop 05/03/18 at 07:59 Hydromorphone HCl (Dilaudid) 0.5 mg PRN Q10MIN PRN IV SEV PAIN, Second choice; Start 05/02/18 at 08:00; Stop 05/03/18 at 07:59 Prochlorperazine Edisylate (Compazine) 5 mg PACU PRN PRN IV NAUSEA, MRX1; Start 05/02/18 at 08:00; Stop 05/03/18 at 07:59 Metronidazole (Flagyl) 500 mg Q8HRS PO ; Start 05/02/18 at 14:00 Active Scripts Active Reported Prazosin Hcl 5 Mg Capsule 1 Cap PO QHS Amlodipine Besylate 10 Mg Tablet 10 Mg PO DAILY Remeron (Mirtazapine) 45 Mg Tablet 1 Tab PO QHS Accu-Chek Guide Test Strip (Blood Sugar Diagnostic) 1 Each Strip 1 Each MC QID Levothyroxine Sodium 100 Mcg Tablet 1 Tab PO DAILY Tums (Calcium Carbonate) 200 Mg Tab.chew 400 Mg PO TID PRN PRN Humulin N (Nph, Human Insulin Isophane) 100 Unit/1 Ml Vial 48 Unit SQ DAILYWBKFT Metformin Hcl 500 Mg Tablet 1,000 Mg PO BIDWMEALS Humulin N (Nph, Human Insulin Isophane) 100 Unit/1 Ml Vial 52 Unit SQ DAILYBFRSUP Lisinopril-Hctz 20-25 Mg Tab (Lisinopril/Hydrochlorothiazide) 1 Each Tablet 1 Tab PO DAILY Vitals/I & O Vital Sign - Last 24 Hours 05/01/18 05/01/18 05/01/18 05/01/18 19:00 19:19 20:29 22:50 Temp 98.6 99.1 98.6 99.1 Pulse 88 83 92 Resp 18 18 B/P (MAP) 136/72 (93) 118/54 126/75 (92) Pulse Ox 93 94 O2 Delivery Room Air Room Air Room Air 05/02/18 05/02/18 05/02/18 05/02/18 03:00 07:00 08:15 11:00 Temp 97.9 98.5 98.3 97.9 98.5 98.3 Pulse 86 82 77 Resp 18 18 18 B/P (MAP) 117/70 (86) 96/53 (67) 110/60 (77) Pulse Ox 94 95 96 O2 Delivery Room Air Room Air Room Air Room Air Intake and Output 05/01/18 05/01/18 05/02/18 15:00 23:00 07:00 Intake Total 820 ml Output Total 575 ml Balance 245 ml HIEN ESPINOZA MD May 02, 2018 15:16
[2018-05-02] MEDS ORDERED: PROPOFOL 20 ML IV ONE (15:44)
[2018-05-02] MEDS ORDERED: fentaNYL PF VIAL 100 MCG/2 ML VIAL ONE (15:44)
[2018-05-02] MEDS ORDERED: FAMOTIDINE 20 MG/2 ML VIAL ONE (15:44)
[2018-05-02] MEDS ORDERED: ONDANSETRON PF 4 MG/2 ML VIAL. ONE (15:44)
[2018-05-02] MEDS ORDERED: MIDAZOLAM HCL/PF 2 MG/2 ML VIAL. ONE (15:44)
[2018-05-02] MEDS ORDERED: DEXAMETHASONE SOD PHOS 20 MG/5 ML VIAL. ONE (15:44)
[2018-05-02] MEDS ORDERED: SUCCINYLCHOLINE 200 MG/10 ML VIAL. ONE (16:40)
[2018-05-02] MEDS ORDERED: ePHEDrine PF IN SALINE 50 MG/5 ML DISP.SYRIN IV ONE (17:40)
[2018-05-02] MEDS ORDERED: SEVOFLURANE 31 TO 60 MINUTES. IH ONE (17:41)
[2018-05-02] MEDS: DAPTOMYCIN IV SCH (19:04)
[2018-05-02] MEDS: NORMAL SALINE IV SCH (19:04)
[2018-05-02] MEDS: INSULIN GLARGINE 300 UNITS/3 ML INSULN.PEN. SQ SCH (19:21)
--- NOTE | 2018-05-02 19:35 | PDOC4 ---
Operative Note Operative Note Date of surgery: 05/02/2018 Preoperative diagnosis: Osteomyelitis left fifth toe and third metatarsal head Postoperative diagnosis: Same with significant soft tissue involvement and surrounding left fifth toe and destruction cartilage and bone third metatarsal head Operative procedure: Left third fourth and fifth toe amputations Surgeon: Erickson Anesthesia: Gen. Estimated blood loss: 150 mL Complications: None Operative indications:Mr. Painter's history is detailed in my consult and his exam notable for a severe infection of his left fifth toe with osteomyelitis shown on MRI. He also appeared to show osteomyelitis changes in the third metatarsal head and had pain in that area as well. When I discussed treatment options in detail with him in terms of addressing both areas he really didn't want to leave a floppy third toe and did not want to leave a fourth toe alone as he was concerned with potential pressure areas and a shoe even if these did heal and after giving treatment options preferred to undergo third fourth and fifth toe amputations. He is aware of the possibility of nonhealing additional procedures if infection is persistent or coverages and adequate. All his questions were answered and he wishes to proceed with surgical evaluation and treatment Operative text: Patient was identified procedure verified patient placed in the supine position on the operating table. After adequate amounts of general anesthesia were administered the left lower extremity was prepped and draped in standard sterile fashion with a thigh tourniquet. After timeout was performed patient procedure identified and verified the left fifth toe was first excised with a fishmouth type incision and significant bone and soft tissue involvement worse noted throughout the phalanges. Similar incisions were made over the fourth and third toes the third was noted to have significant destruction of the metatarsal head with some underlying softness of the metatarsal head bone. Third and fourth toes were likewise removed down to the metatarsal head and debridement was carried out with cultures obtained of the deep bone on the third metatarsal head both third fourth and fifth metatarsal heads were debrided of cartilage to allow Ettore blood supply and healing thorough irrigation carried out normal saline solution and bulb syringe bleeding points were controlled by electrocautery and skin was closed with #2-0 nylon suture sterile dressings were applied patient was returned to recovery room in stable condition having tolerated the procedure well IGA KHAN MD May 02, 2018 19:35
[2018-05-02] MEDS: cefTRIAXone SODIUM 2 GM in IV DEXTROSE 5% 100ML 100 ML IV SCH (20:50)
[2018-05-02] MEDS: PRAZOSIN 1 MG CAPSULE. PO SCH (20:51)
[2018-05-02] MEDS: MIRTAZAPINE 15 MG TABLET PO SCH (20:52)
[2018-05-03 03:00] VITALS: BP 123/79
[2018-05-03] MEDS: LEVOTHYROXINE 100 MCG TABLET PO SCH (05:11)
[2018-05-03] MEDS: metroNIDAZOLE 500 MG TABLET PO SCH ×3 (05:11→21:10)
[2018-05-03 06:08] LABS: BASO % 0 % (0-3); EOS % 0 % (0-3); HEMATOCRIT 36.3 % (39.0-53.0); HEMOGLOBIN 12.8 g/dL (13.0-17.5); LYMPH # 1.2 x10^3/uL (1.0-4.8); LYMPH % 13 % (24-48); MEAN CORPUSCULAR HEMOGLOBIN 30 pg (25-35); MEAN CORPUSCULAR HGB CONC 35 g/dL (31-37); MEAN CORPUSCULAR VOLUME 86 fL (79-100); MONO # 0.3 x10^3/uL (0.0-1.1); MONO % 3 % (0-9); NEUT # 7.4 x10^3uL (1.8-7.7); NEUT % 83 % (31-73); PLATELET COUNT 262 x10^3/uL (140-400); RED BLOOD COUNT 4.23 x10^6/uL (4.30-5.70); RED CELL DISTRIBUTION WIDTH 13.7 % (11.5-14.5); WHITE BLOOD COUNT 8.9 x10^3/uL (4.0-11.0)
[2018-05-03 06:27] LABS: CALCIUM 9.1 mg/dL (8.5-10.1); CREATININE 1.3 mg/dL (0.7-1.3); GFR 56.5; MAGNESIUM 1.9 mg/dL (1.8-2.4); PHOSPHORUS 2.6 mg/dL (2.6-4.7); POTASSIUM 4.9 mmol/L (3.5-5.1)
[2018-05-03 07:00] VITALS: BP_SYST 161; BP_SYST 90; BP_DIAS 106; BP_DIAS 50
[2018-05-03] MEDS: LACTOBACILLUS RHAMNOSUS GG 1 CAPSULE. PO SCH ×2 (08:39→21:10)
[2018-05-03] MEDS: INSULIN LISPRO 300 UNITS/3 ML INSULN.PEN. SQ SCH ×6 (08:41→17:24)
[2018-05-03] MEDS: amLODIPine BESYLATE 10 MG TABLET PO SCH (08:43)
--- NOTE | 2018-05-03 10:36 | PDOC ---
PROGRESS NOTES Chief Complaint Chief Complaint Diabetic wound, left 5th toe, deep wound small toe marrow edema with T1 marrow replacement at the lateral aspect of the proximal and middle phalanx consistent with acute osteomyelitis. diffuse T1 signal changes within the third metatarsal head and neck with associated marrow edema and erosive change in the prior radiographs, also likely osteomyelitis. Diabetes type 2 hemoglobin A1c 7.1 , good control Obesity with a BMI 39 Hypertension, controlled Incarcerated MONTY, VMN possible CKD stage 4 pos blood cult gram pos bacteremia History of Present Illness History of Present Illness cont the IV antibiotics, MRI toe reviewed ESR is mildly reassuring cultures Avoid nephrotoxins Local wound care Sliding-scale insulin surgery later today Vitals Vitals Vital Signs Date Time Temp Pulse Resp B/P (MAP) Pulse Ox O2 Delivery O2 Flow Rate FiO2 05/03/18 09:00 Room Air 05/03/18 08:43 89 90/50 05/03/18 07:00 97.7 18 91 97.7 05/02/18 18:37 2 Physical Exam Physical Exam GENERAL: Well-developed and well-nourished male lying comfortably in bed, in no acute distress. HEENT: Anicteric. Oral mucosa moist. NECK: Supple. CHEST: Lungs clear. HEART: S1 and S2. ABDOMEN: Soft. Bowel sounds present. Obese. No hepatosplenomegaly. EXTREMITIES: No edema, no cyanosis and no clubbing. Left fifth toe dressed General: Alert, Oriented X3, Cooperative, No acute distress, mild distress Heart: Regular rate, Normal S1, Normal S2 Lungs: Clear Abdomen: Normal bowel sounds, Soft, No tenderness, No hepatosplenomegaly, No masses Extremities: No cyanosis, Other (second left toe amputation- Diabetes wound left pinky toe lateral surface with some packing, mild erythema no foul- smelling discharge, no significant tenderness on exam) Labs LABS Laboratory Tests Test 05/02/18 11:54 05/02/18 15:48 05/02/18 19:03 05/02/18 20:37 Glucose (Fingerstick) 211 mg/dL (70-99) 169 mg/dL (70-99) 160 mg/dL (70-99) 310 mg/dL (70-99) Test 05/03/18 04:50 05/03/18 07:18 White Blood Count 8.9 x10^3/uL (4.0-11.0) Red Blood Count 4.23 x10^6/uL (4.30-5.70) Hemoglobin 12.8 g/dL (13.0-17.5) Hematocrit 36.3 % (39.0-53.0) Mean Corpuscular Volume 86 fL (79-100) Mean Corpuscular Hemoglobin 30 pg (25-35) Mean Corpuscular Hemoglobin Concent 35 g/dL (31-37) Red Cell Distribution Width 13.7 % (11.5-14.5) Platelet Count 262 x10^3/uL (140-400) Neutrophils (%) (Auto) 83 % (31-73) Lymphocytes (%) (Auto) 13 % (24-48) Monocytes (%) (Auto) 3 % (0-9) Eosinophils (%) (Auto) 0 % (0-3) Basophils (%) (Auto) 0 % (0-3) Neutrophils # (Auto) 7.4 x10^3uL (1.8-7.7) Lymphocytes # (Auto) 1.2 x10^3/uL (1.0-4.8) Monocytes # (Auto) 0.3 x10^3/uL (0.0-1.1) Eosinophils # (Auto) 0.0 x10^3/uL (0.0-0.7) Basophils # (Auto) 0.0 x10^3/uL (0.0-0.2) Sodium Level 135 mmol/L (136-145) Potassium Level 4.9 mmol/L (3.5-5.1) Chloride Level 99 mmol/L (98-107) Carbon Dioxide Level 28 mmol/L (21-32) Anion Gap 8 (6-14) Blood Urea Nitrogen 22 mg/dL (8-26) Creatinine 1.3 mg/dL (0.7-1.3) Estimated GFR (Cockcroft-Gault) 56.5 Glucose Level 280 mg/dL (70-99) Calcium Level 9.1 mg/dL (8.5-10.1) Phosphorus Level 2.6 mg/dL (2.6-4.7) Magnesium Level 1.9 mg/dL (1.8-2.4) Albumin 3.0 g/dL (3.4-5.0) Glucose (Fingerstick) 269 mg/dL (70-99) Assessment and Plan Assessmemt and Plan Problems Medical Problems: (1) Cellulitis of toe of left foot Status: Acute Comment Review of Relevant I have reviewed the following items ministerio (where applicable) has been applied. Labs Laboratory Tests Test 05/01/18 10:45 05/01/18 16:25 05/01/18 20:54 05/02/18 04:31 Glucose (Fingerstick) 222 mg/dL (70-99) 196 mg/dL (70-99) 257 mg/dL (70-99) Hemoglobin 12.9 g/dL (13.0-17.5) Test 05/02/18 04:46 05/02/18 07:43 05/02/18 11:54 05/02/18 15:48 Sodium Level 139 mmol/L (136-145) Potassium Level 4.1 mmol/L (3.5-5.1) Chloride Level 100 mmol/L (98-107) Carbon Dioxide Level 33 mmol/L (21-32) Anion Gap 6 (6-14) Blood Urea Nitrogen 19 mg/dL (8-26) Creatinine 1.2 mg/dL (0.7-1.3) Estimated GFR (Cockcroft-Gault) 62.0 Glucose Level 156 mg/dL (70-99) Calcium Level 9.3 mg/dL (8.5-10.1) Phosphorus Level 3.9 mg/dL (2.6-4.7) Magnesium Level 1.9 mg/dL (1.8-2.4) Albumin 2.9 g/dL (3.4-5.0) Glucose (Fingerstick) 144 mg/dL (70-99) 211 mg/dL (70-99) 169 mg/dL (70-99) Test 05/02/18 19:03 05/02/18 20:37 05/03/18 04:50 05/03/18 07:18 Glucose (Fingerstick) 160 mg/dL (70-99) 310 mg/dL (70-99) 269 mg/dL (70-99) White Blood Count 8.9 x10^3/uL (4.0-11.0) Red Blood Count 4.23 x10^6/uL (4.30-5.70) Hemoglobin 12.8 g/dL (13.0-17.5) Hematocrit 36.3 % (39.0-53.0) Mean Corpuscular Volume 86 fL (79-100) Mean Corpuscular Hemoglobin 30 pg (25-35) Mean Corpuscular Hemoglobin Concent 35 g/dL (31-37) Red Cell Distribution Width 13.7 % (11.5-14.5) Platelet Count 262 x10^3/uL (140-400) Neutrophils (%) (Auto) 83 % (31-73) Lymphocytes (%) (Auto) 13 % (24-48) Monocytes (%) (Auto) 3 % (0-9) Eosinophils (%) (Auto) 0 % (0-3) Basophils (%) (Auto) 0 % (0-3) Neutrophils # (Auto) 7.4 x10^3uL (1.8-7.7) Lymphocytes # (Auto) 1.2 x10^3/uL (1.0-4.8) Monocytes # (Auto) 0.3 x10^3/uL (0.0-1.1) Eosinophils # (Auto) 0.0 x10^3/uL (0.0-0.7) Basophils # (Auto) 0.0 x10^3/uL (0.0-0.2) Sodium Level 135 mmol/L (136-145) Potassium Level 4.9 mmol/L (3.5-5.1) Chloride Level 99 mmol/L (98-107) Carbon Dioxide Level 28 mmol/L (21-32) Anion Gap 8 (6-14) Blood Urea Nitrogen 22 mg/dL (8-26) Creatinine 1.3 mg/dL (0.7-1.3) Estimated GFR (Cockcroft-Gault) 56.5 Glucose Level 280 mg/dL (70-99) Calcium Level 9.1 mg/dL (8.5-10.1) Phosphorus Level 2.6 mg/dL (2.6-4.7) Magnesium Level 1.9 mg/dL (1.8-2.4) Albumin 3.0 g/dL (3.4-5.0) Laboratory Tests Test 05/02/18 11:54 05/02/18 15:48 05/02/18 19:03 05/02/18 20:37 Glucose (Fingerstick) 211 mg/dL (70-99) 169 mg/dL (70-99) 160 mg/dL (70-99) 310 mg/dL (70-99) Test 05/03/18 04:50 05/03/18 07:18 White Blood Count 8.9 x10^3/uL (4.0-11.0) Red Blood Count 4.23 x10^6/uL (4.30-5.70) Hemoglobin 12.8 g/dL (13.0-17.5) Hematocrit 36.3 % (39.0-53.0) Mean Corpuscular Volume 86 fL (79-100) Mean Corpuscular Hemoglobin 30 pg (25-35) Mean Corpuscular Hemoglobin Concent 35 g/dL (31-37) Red Cell Distribution Width 13.7 % (11.5-14.5) Platelet Count 262 x10^3/uL (140-400) Neutrophils (%) (Auto) 83 % (31-73) Lymphocytes (%) (Auto) 13 % (24-48) Monocytes (%) (Auto) 3 % (0-9) Eosinophils (%) (Auto) 0 % (0-3) Basophils (%) (Auto) 0 % (0-3) Neutrophils # (Auto) 7.4 x10^3uL (1.8-7.7) Lymphocytes # (Auto) 1.2 x10^3/uL (1.0-4.8) Monocytes # (Auto) 0.3 x10^3/uL (0.0-1.1) Eosinophils # (Auto) 0.0 x10^3/uL (0.0-0.7) Basophils # (Auto) 0.0 x10^3/uL (0.0-0.2) Sodium Level 135 mmol/L (136-145) Potassium Level 4.9 mmol/L (3.5-5.1) Chloride Level 99 mmol/L (98-107) Carbon Dioxide Level 28 mmol/L (21-32) Anion Gap 8 (6-14) Blood Urea Nitrogen 22 mg/dL (8-26) Creatinine 1.3 mg/dL (0.7-1.3) Estimated GFR (Cockcroft-Gault) 56.5 Glucose Level 280 mg/dL (70-99) Calcium Level 9.1 mg/dL (8.5-10.1) Phosphorus Level 2.6 mg/dL (2.6-4.7) Magnesium Level 1.9 mg/dL (1.8-2.4) Albumin 3.0 g/dL (3.4-5.0) Glucose (Fingerstick) 269 mg/dL (70-99) Microbiology 04/30/18 Blood Culture - Preliminary, Resulted NO GROWTH AFTER 3 DAYS Medications Current Medications Acetaminophen (Tylenol) 500 mg 1X ONCE PO Last administered on 04/28/18at 22:00 ; Start 04/28/18 at 21:15; Stop 04/28/18 at 21:17; Status DC Vancomycin HCl 2 gm/Sodium Chloride 500 ml @ 250 mls/hr 1X ONCE IV Last administered on 04/29/18at 00:17; Start 04/28/18 at 22:00; Stop 04/28/18 at 23:59 ; Status DC Ceftriaxone Sodium 2 gm/ Dextrose 100 ml @ 200 mls/hr Q24H IV Last administered on 05/02/18at 20:50; Start 04/29/18 at 21:00 Fentanyl Citrate (Fentanyl 2ml Vial) 50 mcg PRN Q2HR PRN IV PAIN; Start at 21:15; Stop 04/29/18 at 21:14; Status DC Acetaminophen (Tylenol) 650 mg PRN Q4HRS PRN PO FEVER; Start 04/28/18 at 21:15 ; Stop 04/29/18 at 11:36; Status DC Sodium Chloride 1,000 ml @ 1,000 mls/hr 1X ONCE IV Last administered on at 22:00; Start 04/28/18 at 21:15; Stop 04/28/18 at 22:14; Status DC Mupirocin (Bactroban) 1 pelon 1X ONCE TP Last administered on 04/28/18at 21:30; Start 04/28/18 at 21:30; Stop 04/28/18 at 21:31; Status DC Ceftriaxone Sodium 2 gm/ Dextrose 100 ml @ 200 mls/hr ONCE ONCE IV Last administered on 04/28/18at 21:15; Start 04/28/18 at 21:15; Stop 04/28/18 at 21:44 ; Status DC Insulin Human Lispro (HumaLOG) 0-5 UNITS TIDWMEALS SQ ; Start 04/29/18 at 08:00 ; Stop 04/29/18 at 11:35; Status DC Dextrose (Dextrose 50%-Water Syringe) 12.5 gm PRN Q15MIN PRN IV SEE COMMENTS; Start 04/28/18 at 21:15; Stop 04/29/18 at 12:09; Status DC Ondansetron HCl (Zofran) 4 mg 1X ONCE IV Last administered on 04/28/18at 22:00 ; Start 04/28/18 at 22:00; Stop 04/28/18 at 22:01; Status DC Famotidine (Pepcid Vial) 20 mg 1X ONCE IVP Last administered on 04/28/18at 22: 00; Start 04/28/18 at 22:00; Stop 04/28/18 at 22:01; Status DC Info (Do NOT chart on this placeholder) 1 each 1X ONCE MC ; Start 04/29/18 at 09:00; Stop 04/29/18 at 09:01; Status UNV Influenza Virus Vaccine (Afluria Trivalent [id number] Syringe) 0.5 ml ONCE ONCE VAX IM Last administered on 04/29/18at 08:17; Start 04/29/18 at 09:00; Stop at 09:01; Status DC Insulin Human Lispro (HumaLOG) 0-9 UNITS TIDWMEALS SQ Last administered on 05/03at 08:41; Start 04/29/18 at 12:00 Dextrose (Dextrose 50%-Water Syringe) 12.5 gm PRN Q15MIN PRN IV SEE COMMENTS; Start 04/29/18 at 11:45 Ondansetron HCl (Zofran) 4 mg PRN Q6HRS PRN IV NAUSEA/VOMITING; Start 04/29/18 at 11:45 Ondansetron HCl (Zofran Odt) 4 mg PRN Q6HRS PRN PO NAUSEA/VOMITING; Start 04/29 at 11:45 Acetaminophen (Tylenol) 500 mg PRN Q6HRS PRN PO MILD PAIN / TEMP Last administered on 05/01/18at 20:29; Start 04/29/18 at 11:45 Amlodipine Besylate (Norvasc) 10 mg DAILY PO Last administered on 04/29/18at 12: 07; Start 04/29/18 at 12:00 Calcium Carbonate/ Glycine (Tums) 500 mg TID PRN PRN PO GI SYMPTOMS; Start at 11:45 Levothyroxine Sodium (Synthroid) 100 mcg DAILY07 PO Last administered on at 05:11; Start 04/29/18 at 12:00 Non-Formulary Medication (Blood Sugar Diagnostic (Accu-Chek Guide Test Strip)) 1 each QID ; Start 04/29/18 at 13:00; Status UNV Mirtazapine (Remeron) 45 mg QHS PO Last administered on 05/02/18at 20:52; Start 04/29/18 at 21:00 Insulin Glargine (Lantus) 52 units DAILYBFRSUP SQ Last administered on at 19:21; Start 04/29/18 at 17:00 Prazosin HCl (Minipress) 5 mg QHS PO Last administered on 05/02/18at 20:51; Start 04/29/18 at 21:00 Clonidine HCl (Catapres) 0.1 mg PRN Q1HR PRN PO HYPERTENSION, SEE COMMENTS; Start 04/29/18 at 11:45 Daptomycin 770 mg/ Sodium Chloride 50 ml @ 100 mls/hr Q24H IV ; Start 04/29/18 at 16:30; Stop 04/29/18 at 16:55; Status DC Daptomycin 770 mg/ Sodium Chloride 50 ml @ 100 mls/hr Q24H IV Last administered on 05/02/18at 19:04; Start 04/29/18 at 18:00 Lactobacillus Rhamnosus (Culturelle) 1 cap BID PO Last administered on at 08:39; Start 04/29/18 at 21:00 Insulin Human Lispro (HumaLOG) 10 units TIDWMEALS SQ Last administered on at 08:42; Start 04/30/18 at 12:00 Magnesium Sulfate 50 ml @ 25 mls/hr PRN DAILY PRN IV for Mag < 1.7 on am labs; Start 05/01/18 at 07:15 Ondansetron HCl (Zofran) 4 mg PRN Q6HRS PRN IV NAUSEA/VOMITING; Start 05/02/18 at 08:00; Stop 05/03/18 at 07:59; Status DC Fentanyl Citrate (Fentanyl 2ml Vial) 25 mcg PRN Q5MIN PRN IV MILD PAIN; Start 05/02/18 at 08:00; Stop 05/03/18 at 07:59; Status DC Fentanyl Citrate (Fentanyl 2ml Vial) 50 mcg PRN Q5MIN PRN IV MODERATE TO SEVERE PAIN; Start 05/02/18 at 08:00; Stop 05/03/18 at 07:59; Status DC Morphine Sulfate (Morphine Sulfate) 1 mg PRN Q10MIN PRN IV SEVERE PAIN; Start 05/02/18 at 08:00; Stop 05/03/18 at 07:59; Status DC Ringer's Solution 1,000 ml @ 30 mls/hr Q24H IV Last administered on 05/02/18at 15:45; Start 05/02/18 at 07:46; Stop 05/02/18 at 19:45; Status DC Lidocaine HCl (Xylocaine-Mpf 1% 2ml Vial) 2 ml PRN 1X PRN ID PRIOR TO IV START ; Start 05/02/18 at 08:00; Stop 05/03/18 at 07:59; Status DC Hydromorphone HCl (Dilaudid) 0.5 mg PRN Q10MIN PRN IV SEV PAIN, Second choice; Start 05/02/18 at 08:00; Stop 05/03/18 at 07:59; Status DC Prochlorperazine Edisylate (Compazine) 5 mg PACU PRN PRN IV NAUSEA, MRX1; Start 05/02/18 at 08:00; Stop 05/03/18 at 07:59; Status DC Metronidazole (Flagyl) 500 mg Q8HRS PO Last administered on 05/03/18at 05:11; Start 05/02/18 at 14:00 Dexamethasone Sodium Phosphate (Decadron) 20 mg STK-MED ONCE .ROUTE ; Start at 15:44; Stop 05/02/18 at 15:45; Status DC Famotidine (Pepcid Vial) 20 mg STK-MED ONCE .ROUTE ; Start 05/02/18 at 15:44; Stop 05/02/18 at 15:45; Status DC Ondansetron HCl (Zofran) 4 mg STK-MED ONCE .ROUTE ; Start 05/02/18 at 15:44; Stop 05/02/18 at 15:45; Status DC Propofol 20 ml @ As Directed STK-MED ONCE IV ; Start 05/02/18 at 15:44; Stop at 15:45; Status DC Fentanyl Citrate (Fentanyl 2ml Vial) 100 mcg STK-MED ONCE .ROUTE ; Start at 15:44; Stop 05/02/18 at 15:45; Status DC Midazolam HCl (Versed) 2 mg STK-MED ONCE .ROUTE ; Start 05/02/18 at 15:44; Stop 05/02/18 at 15:45; Status DC Succinylcholine Chloride (Anectine) 200 mg STK-MED ONCE .ROUTE ; Start 05/02/18 at 16:40; Stop 05/02/18 at 16:41; Status DC Ephedrine Sulfate (ePHEDrine PF IN SALINE SYRINGE) 50 mg STK-MED ONCE IV ; Start 05/02/18 at 17:40; Stop 05/02/18 at 17:41; Status DC Sevoflurane (Ultane) 30 ml STK-MED ONCE IH ; Start 05/02/18 at 17:41; Stop 05/02 at 17:42; Status DC Active Scripts Active Reported Prazosin Hcl 5 Mg Capsule 1 Cap PO QHS Amlodipine Besylate 10 Mg Tablet 10 Mg PO DAILY Remeron (Mirtazapine) 45 Mg Tablet 1 Tab PO QHS Accu-Chek Guide Test Strip (Blood Sugar Diagnostic) 1 Each Strip 1 Each MC QID Levothyroxine Sodium 100 Mcg Tablet 1 Tab PO DAILY Tums (Calcium Carbonate) 200 Mg Tab.chew 400 Mg PO TID PRN PRN Humulin N (Nph, Human Insulin Isophane) 100 Unit/1 Ml Vial 48 Unit SQ DAILYWBKFT Metformin Hcl 500 Mg Tablet 1,000 Mg PO BIDWMEALS Humulin N (Nph, Human Insulin Isophane) 100 Unit/1 Ml Vial 52 Unit SQ DAILYBFRSUP Lisinopril-Hctz 20-25 Mg Tab (Lisinopril/Hydrochlorothiazide) 1 Each Tablet 1 Tab PO DAILY Vitals/I & O Vital Sign - Last 24 Hours 05/02/18 05/02/18 05/02/18 05/02/18 11:00 15:00 15:49 18:07 Temp 98.3 98.2 98.3 97.5 98.3 98.2 98.3 97.5 Pulse 77 79 77 78 Resp 17 B/P (MAP) 110/60 (77) 131/69 (89) 143/67 124/68 Pulse Ox 96 96 97 99 O2 Delivery Room Air Room Air Room Air Simple Mask O2 Flow Rate 10 05/02/18 05/02/18 05/02/18 05/02/18 18:12 18:19 18:37 19:00 Temp 97.6 97.6 Pulse 86 87 85 Resp 13 23 20 B/P (MAP) 152/79 159/86 126/66 (86) Pulse Ox 100 94 98 O2 Delivery Mask Room Air Nasal Cannula Room Air O2 Flow Rate 10 2 05/02/18 05/02/18 05/02/18 05/02/18 19:43 19:57 20:00 20:12 Pulse 97 90 87 B/P (MAP) 147/81 (103) 112/62 (79) 119/68 (85) Pulse Ox 98 99 98 O2 Delivery Room Air Room Air Room Air Room Air 05/02/18 05/02/18 05/02/18 05/02/18 20:27 20:42 20:51 21:12 Pulse 84 86 84 85 B/P (MAP) 126/66 (86) 126/58 (80) 126/58 125/57 (79) Pulse Ox 99 97 90 O2 Delivery Room Air Room Air Room Air 05/02/18 05/02/18 05/02/18 05/03/18 22:12 22:49 23:12 03:00 Temp 96.8 96.8 97.5 96.8 96.8 97.5 Pulse 86 87 87 85 Resp 18 B/P (MAP) 121/68 (85) 113/67 (82) 113/67 (82) 123/79 (94) Pulse Ox 90 92 92 93 O2 Delivery Room Air Room Air Room Air Room Air 05/03/18 05/03/18 05/03/18 05/03/18 07:00 07:00 08:43 09:00 Temp 98.6 97.7 98.6 97.7 Pulse 91 89 89 Resp 18 B/P (MAP) 161/106 (124) 90/50 (63) 90/50 Pulse Ox 96 91 O2 Delivery Room Air Room Air Room Air Intake and Output 05/02/18 05/02/18 05/03/18 15:00 23:00 07:00 Intake Total 1280 ml 560 ml Output Total 1050 ml 1200 ml Balance 230 ml -640 ml ALBA RICH MD May 03, 2018 10:36
--- NOTE | 2018-05-03 10:51 | PDOC ---
Infectious Disease Note Subjective Subjective Pt says better. Some mild foot pain no n/v/d/sob/rash or aches ROS ROS o/w neg Vital Sign Vital Signs Vital Signs Date Time Temp Pulse Resp B/P (MAP) Pulse Ox O2 Delivery O2 Flow Rate FiO2 05/03/18 09:00 Room Air 05/03/18 08:43 89 90/50 05/03/18 07:00 97.7 18 91 97.7 05/02/18 18:37 2 Physical Exam PHYSICAL EXAM GENERAL: Well-developed and well-nourished male lying comfortably in bed, in no acute distress. HEENT: Anicteric. Oral mucosa moist. NECK: Supple. CHEST: Lungs clear. HEART: S1 and S2. ABDOMEN: Soft. Bowel sounds present. Obese. No hepatosplenomegaly. EXTREMITIES: No edema, no cyanosis and no clubbing. Left fifth toe dressed Labs Lab Laboratory Tests Test 05/02/18 11:54 05/02/18 15:48 05/02/18 19:03 05/02/18 20:37 Glucose (Fingerstick) 211 mg/dL (70-99) 169 mg/dL (70-99) 160 mg/dL (70-99) 310 mg/dL (70-99) Test 05/03/18 04:50 05/03/18 07:18 White Blood Count 8.9 x10^3/uL (4.0-11.0) Red Blood Count 4.23 x10^6/uL (4.30-5.70) Hemoglobin 12.8 g/dL (13.0-17.5) Hematocrit 36.3 % (39.0-53.0) Mean Corpuscular Volume 86 fL (79-100) Mean Corpuscular Hemoglobin 30 pg (25-35) Mean Corpuscular Hemoglobin Concent 35 g/dL (31-37) Red Cell Distribution Width 13.7 % (11.5-14.5) Platelet Count 262 x10^3/uL (140-400) Neutrophils (%) (Auto) 83 % (31-73) Lymphocytes (%) (Auto) 13 % (24-48) Monocytes (%) (Auto) 3 % (0-9) Eosinophils (%) (Auto) 0 % (0-3) Basophils (%) (Auto) 0 % (0-3) Neutrophils # (Auto) 7.4 x10^3uL (1.8-7.7) Lymphocytes # (Auto) 1.2 x10^3/uL (1.0-4.8) Monocytes # (Auto) 0.3 x10^3/uL (0.0-1.1) Eosinophils # (Auto) 0.0 x10^3/uL (0.0-0.7) Basophils # (Auto) 0.0 x10^3/uL (0.0-0.2) Sodium Level 135 mmol/L (136-145) Potassium Level 4.9 mmol/L (3.5-5.1) Chloride Level 99 mmol/L (98-107) Carbon Dioxide Level 28 mmol/L (21-32) Anion Gap 8 (6-14) Blood Urea Nitrogen 22 mg/dL (8-26) Creatinine 1.3 mg/dL (0.7-1.3) Estimated GFR (Cockcroft-Gault) 56.5 Glucose Level 280 mg/dL (70-99) Calcium Level 9.1 mg/dL (8.5-10.1) Phosphorus Level 2.6 mg/dL (2.6-4.7) Magnesium Level 1.9 mg/dL (1.8-2.4) Albumin 3.0 g/dL (3.4-5.0) Glucose (Fingerstick) 269 mg/dL (70-99) Micro 04/28 - Blood BLOOD CULTURE LC Preliminary Preliminary report BLD CULT RESULT 1 Preliminary Staphylococcus aureus Microbiology 04/30/18 Blood Culture - Preliminary, Resulted NO GROWTH AFTER 2 DAYS Objective Assessment Staph aureus sepsis - POA 04/28 1. Left fifth toe diabetic foot wound infection/OM s/p amp 05/02 2. History of left second toe amputation for osteomyelitis. 3. Diabetes mellitus with neuropathy. 4. Gastroesophageal reflux disease. 5. Hypertension/hyperlipidemia. 6. Hypothyroidism. 7. Posttraumatic stress disorder. 8. Acute kidney injury. 9. Gram-positive cocci bacteremia, source likely left fifth toe infection. ID and MATTHEW pending Plan Plan of Care Continue empiric ceftriaxone and daptomycin.Po Flagyl Cont Local care Follow up culture and susceptibility results and labs in the a.m. Repeat Blood cults today RAFAEL TOLEDO MD May 03, 2018 10:51
[2018-05-03 11:00] VITALS: BP 126/70
[2018-05-03] MEDS: ACETAMINOPHEN 500 MG TABLET PO PRN (11:24)
--- NOTE | 2018-05-03 13:49 | PDOC ---
SUBJECTIVE ROS No new concerns, Left third fourth and fifth toe amputations- 05/02 OBJECTIVE Vital Signs Vital Signs Date Time Temp Pulse Resp B/P (MAP) Pulse Ox O2 Delivery O2 Flow Rate FiO2 05/03/18 11:00 98.2 98 18 126/70 (88) 97 Room Air 98.2 05/02/18 18:37 2 I & 0 Intake and Output 05/03/18 07:00 Intake Total 1840 ml Output Total 2250 ml Balance -410 ml Intake Oral 1690 ml IV Total 150 ml Output Urine Total 2100 ml Estimated Blood Loss 150 ml # Voids 5 # Bowel Movements 1 PHYSICAL EXAM Physical Exam GENERAL: NAD HEENT: Anicteric. Oral mucosa moist. NECK: Supple. CHEST: Lungs clear. HEART: S1 and S2. ABDOMEN: Soft. Bowel sounds present. Obese. EXTREMITIES: No edema, no cyanosis and no clubbing. 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 Renal Sonogram done HTN:Current BP meds reviewed. Blood pressures are relatively well controlled currently on present medications. No changes made Osteomyelitis of the left fifth toe: Defer to infectious disease physicians and specialists. Left third fourth and fifth toe amputations- 05/02 DM- Uncontrolled COMMENT/RELEVANT DATA Meds Current Medications Medications (Trade) Dose Ordered Sig/Shoshana Start Time Stop Time Status Last Admin Dose Admin Acetaminophen (Tylenol) 500 mg PRN Q6HRS PRN 04/29/18 11:45 05/03/18 11:24 500 MG Amlodipine Besylate (Norvasc) 10 mg DAILY 04/29/18 12:00 04/29/18 12:07 10 MG Calcium Carbonate/ Glycine (Tums) 500 mg TID PRN PRN 04/29/18 11:45 Ceftriaxone Sodium 2 gm/ Dextrose 100 ml @ 200 mls/hr ONCE ONCE 04/28/18 21:15 04/28/18 21:44 DC 04/28/18 21:15 200 MLS/HR Clonidine HCl (Catapres) 0.1 mg PRN Q1HR PRN 04/29/18 11:45 Daptomycin 770 mg/ Sodium Chloride 50 ml @ 100 mls/hr Q24H 04/29/18 18:00 05/02/18 19:04 100 MLS/HR Dexamethasone Sodium Phosphate (Decadron) 20 mg STK-MED ONCE 05/02/18 15:44 05/02/18 15:45 DC Dextrose (Dextrose 50%-Water Syringe) 12.5 gm PRN Q15MIN PRN 04/29/18 11:45 Ephedrine Sulfate (ePHEDrine PF IN SALINE SYRINGE) 50 mg STK-MED ONCE 05/02/18 17:40 05/02/18 17:41 DC Famotidine (Pepcid Vial) 20 mg STK-MED ONCE 05/02/18 15:44 05/02/18 15:45 DC Fentanyl Citrate (Fentanyl 2ml Vial) 100 mcg STK-MED ONCE 05/02/18 15:44 05/02/18 15:45 DC Hydromorphone HCl (Dilaudid) 0.5 mg PRN Q10MIN PRN 05/02/18 08:00 05/03/18 07:59 DC Influenza Virus Vaccine (Afluria Trivalent [id number] Syringe) 0.5 ml ONCE ONCE 04/29/18 09:00 04/29/18 09:01 DC 04/29/18 08:17 0.5 ML Info (Do NOT chart on this placeholder) 1 each 1X ONCE 04/29/18 09:00 04/29/18 09:01 UNV Insulin Glargine (Lantus) 52 units DAILYBFRSUP 04/29/18 17:00 05/02/18 19:21 52 UNITS Insulin Human Lispro (HumaLOG) 10 units TIDWMEALS 04/30/18 12:00 05/03/18 11:30 10 UNITS Lactobacillus Rhamnosus (Culturelle) 1 cap BID 04/29/18 21:00 05/03/18 08:39 1 CAP Levothyroxine Sodium (Synthroid) 100 mcg DAILY07 04/29/18 12:00 05/03/18 05:11 100 MCG Lidocaine HCl (Xylocaine-Mpf 1% 2ml Vial) 2 ml PRN 1X PRN 05/02/18 08:00 05/03/18 07:59 DC Magnesium Sulfate 50 ml @ 25 mls/hr PRN DAILY PRN 05/01/18 07:15 Metronidazole (Flagyl) 500 mg Q8HRS 05/02/18 14:00 05/03/18 05:11 500 MG Midazolam HCl (Versed) 2 mg STK-MED ONCE 05/02/18 15:44 05/02/18 15:45 DC Mirtazapine (Remeron) 45 mg QHS 04/29/18 21:00 05/02/18 20:52 45 MG Morphine Sulfate (Morphine Sulfate) 1 mg PRN Q10MIN PRN 05/02/18 08:00 05/03/18 07:59 DC Mupirocin (Bactroban) 1 pelon 1X ONCE 04/28/18 21:30 04/28/18 21:31 DC 04/28/18 21:30 1 PELON Non-Formulary Medication (Blood Sugar Diagnostic (Accu-Chek Guide Test Strip)) 1 each QID 04/29/18 13:00 UNV Ondansetron HCl (Zofran Odt) 4 mg PRN Q6HRS PRN 04/29/18 11:45 Ondansetron HCl (Zofran) 4 mg STK-MED ONCE 05/02/18 15:44 05/02/18 15:45 DC Prazosin HCl (Minipress) 5 mg QHS 04/29/18 21:00 05/02/18 20:51 5 MG Prochlorperazine Edisylate (Compazine) 5 mg PACU PRN PRN 05/02/18 08:00 05/03/18 07:59 DC Propofol 20 ml @ As Directed STK-MED ONCE 05/02/18 15:44 05/02/18 15:45 DC Ringer's Solution 1,000 ml @ 30 mls/hr Q24H 05/02/18 07:46 05/02/18 19:45 DC 05/02/18 15:45 30 MLS/HR Sevoflurane (Ultane) 30 ml STK-MED ONCE 05/02/18 17:41 05/02/18 17:42 DC Sodium Chloride 1,000 ml @ 1,000 mls/hr 1X ONCE 04/28/18 21:15 04/28/18 22:14 DC 04/28/18 22:00 1,000 MLS/HR Succinylcholine Chloride (Anectine) 200 mg STK-MED ONCE 05/02/18 16:40 05/02/18 16:41 DC Vancomycin HCl 2 gm/Sodium Chloride 500 ml @ 250 mls/hr 1X ONCE 04/28/18 22:00 04/28/18 23:59 DC 04/29/18 00:17 250 MLS/HR Lab Laboratory Tests Test 05/02/18 15:48 05/02/18 19:03 05/02/18 20:37 05/03/18 04:50 Glucose (Fingerstick) 169 mg/dL (70-99) 160 mg/dL (70-99) 310 mg/dL (70-99) White Blood Count 8.9 x10^3/uL (4.0-11.0) Red Blood Count 4.23 x10^6/uL (4.30-5.70) Hemoglobin 12.8 g/dL (13.0-17.5) Hematocrit 36.3 % (39.0-53.0) Mean Corpuscular Volume 86 fL (79-100) Mean Corpuscular Hemoglobin 30 pg (25-35) Mean Corpuscular Hemoglobin Concent 35 g/dL (31-37) Red Cell Distribution Width 13.7 % (11.5-14.5) Platelet Count 262 x10^3/uL (140-400) Neutrophils (%) (Auto) 83 % (31-73) Lymphocytes (%) (Auto) 13 % (24-48) Monocytes (%) (Auto) 3 % (0-9) Eosinophils (%) (Auto) 0 % (0-3) Basophils (%) (Auto) 0 % (0-3) Neutrophils # (Auto) 7.4 x10^3uL (1.8-7.7) Lymphocytes # (Auto) 1.2 x10^3/uL (1.0-4.8) Monocytes # (Auto) 0.3 x10^3/uL (0.0-1.1) Eosinophils # (Auto) 0.0 x10^3/uL (0.0-0.7) Basophils # (Auto) 0.0 x10^3/uL (0.0-0.2) Sodium Level 135 mmol/L (136-145) Potassium Level 4.9 mmol/L (3.5-5.1) Chloride Level 99 mmol/L (98-107) Carbon Dioxide Level 28 mmol/L (21-32) Anion Gap 8 (6-14) Blood Urea Nitrogen 22 mg/dL (8-26) Creatinine 1.3 mg/dL (0.7-1.3) Estimated GFR (Cockcroft-Gault) 56.5 Glucose Level 280 mg/dL (70-99) Calcium Level 9.1 mg/dL (8.5-10.1) Phosphorus Level 2.6 mg/dL (2.6-4.7) Magnesium Level 1.9 mg/dL (1.8-2.4) Albumin 3.0 g/dL (3.4-5.0) Test 05/03/18 07:18 05/03/18 11:11 Glucose (Fingerstick) 269 mg/dL (70-99) 316 mg/dL (70-99) Results All relevant outside records, renal labs, imaging studies, telemetry/EKG's were reviewed. IVET MARTINES MD May 03, 2018 13:49
[2018-05-03 15:00] VITALS: BP 118/58
[2018-05-03] MEDS: INSULIN GLARGINE 300 UNITS/3 ML INSULN.PEN. SQ SCH (17:25)
[2018-05-03] MEDS: DAPTOMYCIN IV SCH (17:27)
[2018-05-03] MEDS: NORMAL SALINE IV SCH (17:27)
[2018-05-03 19:00] VITALS: BP 133/70
[2018-05-03] MEDS: cefTRIAXone SODIUM 2 GM in IV DEXTROSE 5% 100ML 100 ML IV SCH (21:05)
[2018-05-03] MEDS: PRAZOSIN 1 MG CAPSULE. PO SCH (21:09)
[2018-05-03] MEDS: MIRTAZAPINE 15 MG TABLET PO SCH (21:09)
[2018-05-03 23:00] VITALS: BP 137/77
[2018-05-04 03:00] VITALS: BP 120/59
[2018-05-04] MEDS: metroNIDAZOLE 500 MG TABLET PO SCH ×3 (05:25→21:02)
[2018-05-04] MEDS: LEVOTHYROXINE 100 MCG TABLET PO SCH (05:25)
[2018-05-04 05:35] LABS: BASO # 0.1 x10^3/uL (0.0-0.2); BASO % 0 % (0-3); EOS # 0.1 x10^3/uL (0.0-0.7); EOS % 1 % (0-3); HEMATOCRIT 35.5 % (39.0-53.0); HEMOGLOBIN 12.1 g/dL (13.0-17.5); LYMPH # 1.9 x10^3/uL (1.0-4.8); LYMPH % 16 % (24-48); MEAN CORPUSCULAR HEMOGLOBIN 29 pg (25-35); MEAN CORPUSCULAR HGB CONC 34 g/dL (31-37); MEAN CORPUSCULAR VOLUME 86 fL (79-100); MONO # 0.6 x10^3/uL (0.0-1.1); MONO % 5 % (0-9); NEUT # 9.4 x10^3uL (1.8-7.7); NEUT % 78 % (31-73); PLATELET COUNT 297 x10^3/uL (140-400); RED BLOOD COUNT 4.12 x10^6/uL (4.30-5.70); RED CELL DISTRIBUTION WIDTH 14.1 % (11.5-14.5)
[2018-05-04 06:01] LABS: ALBUMIN 3.2 g/dL (3.4-5.0); CALCIUM 8.9 mg/dL (8.5-10.1); CREATININE 1.5 mg/dL (0.7-1.3); GFR 47.9; MAGNESIUM 1.9 mg/dL (1.8-2.4); PHOSPHORUS 3.5 mg/dL (2.6-4.7); POTASSIUM 4.5 mmol/L (3.5-5.1)
[2018-05-04 07:00] VITALS: BP 116/51
[2018-05-04] MEDS: LACTOBACILLUS RHAMNOSUS GG 1 CAPSULE. PO SCH ×2 (08:28→21:01)
[2018-05-04] MEDS: amLODIPine BESYLATE 10 MG TABLET PO SCH (08:29)
[2018-05-04] MEDS: INSULIN LISPRO 300 UNITS/3 ML INSULN.PEN. SQ SCH ×6 (08:32→17:42)
--- NOTE | 2018-05-04 09:27 | PDOC ---
Infectious Disease Note Subjective Subjective Pt says better. Some mild foot pain no n/v/d/sob/rash or aches ROS ROS o/w neg Vital Sign Vital Signs Vital Signs Date Time Temp Pulse Resp B/P (MAP) Pulse Ox O2 Delivery O2 Flow Rate FiO2 05/04/18 08:29 85 116/51 05/04/18 07:00 97.9 18 96 Room Air 97.9 Physical Exam PHYSICAL EXAM GENERAL: Well-developed and well-nourished male lying comfortably in bed, in no acute distress. HEENT: Anicteric. Oral mucosa moist. NECK: Supple. CHEST: Lungs clear. HEART: S1 and S2. ABDOMEN: Soft. Bowel sounds present. Obese. No hepatosplenomegaly. EXTREMITIES: No edema, no cyanosis and no clubbing. Left fifth toe dressed Labs Lab Laboratory Tests Test 05/03/18 11:11 05/03/18 17:18 05/03/18 20:42 05/04/18 05:00 Glucose (Fingerstick) 316 mg/dL (70-99) 197 mg/dL (70-99) 259 mg/dL (70-99) White Blood Count 12.0 x10^3/uL (4.0-11.0) Red Blood Count 4.12 x10^6/uL (4.30-5.70) Hemoglobin 12.1 g/dL (13.0-17.5) Hematocrit 35.5 % (39.0-53.0) Mean Corpuscular Volume 86 fL (79-100) Mean Corpuscular Hemoglobin 29 pg (25-35) Mean Corpuscular Hemoglobin Concent 34 g/dL (31-37) Red Cell Distribution Width 14.1 % (11.5-14.5) Platelet Count 297 x10^3/uL (140-400) Neutrophils (%) (Auto) 78 % (31-73) Lymphocytes (%) (Auto) 16 % (24-48) Monocytes (%) (Auto) 5 % (0-9) Eosinophils (%) (Auto) 1 % (0-3) Basophils (%) (Auto) 0 % (0-3) Neutrophils # (Auto) 9.4 x10^3uL (1.8-7.7) Lymphocytes # (Auto) 1.9 x10^3/uL (1.0-4.8) Monocytes # (Auto) 0.6 x10^3/uL (0.0-1.1) Eosinophils # (Auto) 0.1 x10^3/uL (0.0-0.7) Basophils # (Auto) 0.1 x10^3/uL (0.0-0.2) Sodium Level 139 mmol/L (136-145) Potassium Level 4.5 mmol/L (3.5-5.1) Chloride Level 102 mmol/L (98-107) Carbon Dioxide Level 30 mmol/L (21-32) Anion Gap 7 (6-14) Blood Urea Nitrogen 28 mg/dL (8-26) Creatinine 1.5 mg/dL (0.7-1.3) Estimated GFR (Cockcroft-Gault) 47.9 Glucose Level 198 mg/dL (70-99) Calcium Level 8.9 mg/dL (8.5-10.1) Phosphorus Level 3.5 mg/dL (2.6-4.7) Magnesium Level 1.9 mg/dL (1.8-2.4) Albumin 3.2 g/dL (3.4-5.0) Test 05/04/18 07:37 Glucose (Fingerstick) 179 mg/dL (70-99) Micro Blood cult 04/28 BLD CULT RESULT 1 Final Staphylococcus aureus Most isolates of Staphylococcus sp. produce a beta- lactamase enzyme rendering them resistant to penicillin. Please contact the laboratory if penicillin is being considered for therapy. Based on susceptibility to oxacillin this isolate would be susceptible to: * Beta-lactam/beta-lactamase inhibitor combinations; such as: Amoxicillin-clavulanic acid Ampicillin-sulbactam * Antistaphylococcal cephems; such as: Cefaclor Cefuroxime * Antistaphylococcal carbapenems; such as: Imipenem Meropenem ANTIMICROBIAL SUSCEPTIBILITY Final Comment S = Susceptible; I = Intermediate; R = Resistant P = Positive; N = Negative MICS are expressed in micrograms per mL Antibiotic RSLT#1 RSLT#2 RSLT#3 RSLT#4 Ciprofloxacin S<=0.5 Gentamicin S<=0.5 Levofloxacin S =0.25 Linezolid S =2 Moxifloxacin S<=0.25 Nitrofurantoin S<=16 Oxacillin S<=0.25 Quinupristin/Dalfopristin S<=0.25 CONTINUED ON NEXT PAGE RUN DATE: 05/03/18 PAGE 2 RUN TIME: 2111 [facility] [address] [place] [address] Felice Capellan M.D., [employer] SPEC: [id number] PATIENT: MISAEL DON [id number] ( Continued) Procedure Result ANTIMICROBIAL SUSCEPTIBILITY Final (continued) Rifampin S<=0.5 Tetracycline S<=1 Trimethoprim/Sulfa S<=10 Vancomycin S<=0.5 04/28 - Blood BLOOD CULTURE LC Preliminary Preliminary report BLD CULT RESULT 1 Preliminary Staphylococcus aureus Microbiology 04/30/18 Blood Culture - Preliminary, Resulted NO GROWTH AFTER 2 DAYS Objective Assessment MSSA sepsis - POA 04/28 s/p Left fifth toe diabetic foot wound infection/OM s/p amp 05/02 - cults so far neg Leukocytosis - post op and post Dexamentasone History of left second toe amputation for osteomyelitis. Diabetes mellitus with neuropathy. Acute kidney injury. Plan Plan of Care Continue empiric ceftriaxone/Flagyl and D/c daptomycin. f/u wound cults r/o other bacteria ie GNR Cont Local care Follow up repeat Blood culture 05/03 RAFAEL TOLEDO MD May 04, 2018 09:27
--- NOTE | 2018-05-04 09:31 | PDOC ---
PROGRESS NOTES Chief Complaint Chief Complaint Diabetic wound, left 5th toe, deep wound small toe marrow edema with T1 marrow replacement at the lateral aspect of the proximal and middle phalanx consistent with acute osteomyelitis. diffuse T1 signal changes within the third metatarsal head and neck with associated marrow edema and erosive change in the prior radiographs, also likely osteomyelitis. 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 Diabetes type 2 hemoglobin A1c 7.1 , good control Obesity with a BMI 39 Hypertension, controlled Incarcerated MONTY, VMN possible CKD stage 4 pos blood cult gram pos bacteremia History of Present Illness History of Present Illness cont the IV antibiotics, MRI toe reviewed ESR is mildly reassuring cultures Avoid nephrotoxins Local wound care Sliding-scale insulin surgery later today Vitals Vitals Vital Signs Date Time Temp Pulse Resp B/P (MAP) Pulse Ox O2 Delivery O2 Flow Rate FiO2 05/04/18 08:29 85 116/51 05/04/18 07:00 97.9 18 96 Room Air 97.9 Physical Exam Physical Exam GENERAL: Well-developed and well-nourished male lying comfortably in bed, in no acute distress. HEENT: Anicteric. Oral mucosa moist. NECK: Supple. CHEST: Lungs clear. HEART: S1 and S2. ABDOMEN: Soft. Bowel sounds present. Obese. No hepatosplenomegaly. EXTREMITIES: No edema, no cyanosis and no clubbing. Left fifth toe dressed General: Alert, Oriented X3, Cooperative, No acute distress, mild distress Heart: Regular rate, Normal S1, Normal S2 Lungs: Clear Abdomen: Normal bowel sounds, Soft, No tenderness, No hepatosplenomegaly, No masses Extremities: No clubbing, No cyanosis, Other (second left toe amputation- Diabetes wound left pinky toe lateral surface with some packing, mild erythema no foul-smelling discharge, no significant tenderness on exam) Labs LABS Laboratory Tests Test 05/03/18 11:11 05/03/18 17:18 05/03/18 20:42 05/04/18 05:00 Glucose (Fingerstick) 316 mg/dL (70-99) 197 mg/dL (70-99) 259 mg/dL (70-99) White Blood Count 12.0 x10^3/uL (4.0-11.0) Red Blood Count 4.12 x10^6/uL (4.30-5.70) Hemoglobin 12.1 g/dL (13.0-17.5) Hematocrit 35.5 % (39.0-53.0) Mean Corpuscular Volume 86 fL (79-100) Mean Corpuscular Hemoglobin 29 pg (25-35) Mean Corpuscular Hemoglobin Concent 34 g/dL (31-37) Red Cell Distribution Width 14.1 % (11.5-14.5) Platelet Count 297 x10^3/uL (140-400) Neutrophils (%) (Auto) 78 % (31-73) Lymphocytes (%) (Auto) 16 % (24-48) Monocytes (%) (Auto) 5 % (0-9) Eosinophils (%) (Auto) 1 % (0-3) Basophils (%) (Auto) 0 % (0-3) Neutrophils # (Auto) 9.4 x10^3uL (1.8-7.7) Lymphocytes # (Auto) 1.9 x10^3/uL (1.0-4.8) Monocytes # (Auto) 0.6 x10^3/uL (0.0-1.1) Eosinophils # (Auto) 0.1 x10^3/uL (0.0-0.7) Basophils # (Auto) 0.1 x10^3/uL (0.0-0.2) Sodium Level 139 mmol/L (136-145) Potassium Level 4.5 mmol/L (3.5-5.1) Chloride Level 102 mmol/L (98-107) Carbon Dioxide Level 30 mmol/L (21-32) Anion Gap 7 (6-14) Blood Urea Nitrogen 28 mg/dL (8-26) Creatinine 1.5 mg/dL (0.7-1.3) Estimated GFR (Cockcroft-Gault) 47.9 Glucose Level 198 mg/dL (70-99) Calcium Level 8.9 mg/dL (8.5-10.1) Phosphorus Level 3.5 mg/dL (2.6-4.7) Magnesium Level 1.9 mg/dL (1.8-2.4) Albumin 3.2 g/dL (3.4-5.0) Test 05/04/18 07:37 Glucose (Fingerstick) 179 mg/dL (70-99) Assessment and Plan Assessmemt and Plan Problems Medical Problems: (1) Cellulitis of toe of left foot Status: Acute Comment Review of Relevant I have reviewed the following items ministerio (where applicable) has been applied. Labs Laboratory Tests Test 05/02/18 11:54 05/02/18 15:48 05/02/18 19:03 05/02/18 20:37 Glucose (Fingerstick) 211 mg/dL (70-99) 169 mg/dL (70-99) 160 mg/dL (70-99) 310 mg/dL (70-99) Test 05/03/18 04:50 05/03/18 07:18 05/03/18 11:11 05/03/18 17:18 White Blood Count 8.9 x10^3/uL (4.0-11.0) Red Blood Count 4.23 x10^6/uL (4.30-5.70) Hemoglobin 12.8 g/dL (13.0-17.5) Hematocrit 36.3 % (39.0-53.0) Mean Corpuscular Volume 86 fL (79-100) Mean Corpuscular Hemoglobin 30 pg (25-35) Mean Corpuscular Hemoglobin Concent 35 g/dL (31-37) Red Cell Distribution Width 13.7 % (11.5-14.5) Platelet Count 262 x10^3/uL (140-400) Neutrophils (%) (Auto) 83 % (31-73) Lymphocytes (%) (Auto) 13 % (24-48) Monocytes (%) (Auto) 3 % (0-9) Eosinophils (%) (Auto) 0 % (0-3) Basophils (%) (Auto) 0 % (0-3) Neutrophils # (Auto) 7.4 x10^3uL (1.8-7.7) Lymphocytes # (Auto) 1.2 x10^3/uL (1.0-4.8) Monocytes # (Auto) 0.3 x10^3/uL (0.0-1.1) Eosinophils # (Auto) 0.0 x10^3/uL (0.0-0.7) Basophils # (Auto) 0.0 x10^3/uL (0.0-0.2) Sodium Level 135 mmol/L (136-145) Potassium Level 4.9 mmol/L (3.5-5.1) Chloride Level 99 mmol/L (98-107) Carbon Dioxide Level 28 mmol/L (21-32) Anion Gap 8 (6-14) Blood Urea Nitrogen 22 mg/dL (8-26) Creatinine 1.3 mg/dL (0.7-1.3) Estimated GFR (Cockcroft-Gault) 56.5 Glucose Level 280 mg/dL (70-99) Calcium Level 9.1 mg/dL (8.5-10.1) Phosphorus Level 2.6 mg/dL (2.6-4.7) Magnesium Level 1.9 mg/dL (1.8-2.4) Albumin 3.0 g/dL (3.4-5.0) Glucose (Fingerstick) 269 mg/dL (70-99) 316 mg/dL (70-99) 197 mg/dL (70-99) Test 05/03/18 20:42 05/04/18 05:00 05/04/18 07:37 Glucose (Fingerstick) 259 mg/dL (70-99) 179 mg/dL (70-99) White Blood Count 12.0 x10^3/uL (4.0-11.0) Red Blood Count 4.12 x10^6/uL (4.30-5.70) Hemoglobin 12.1 g/dL (13.0-17.5) Hematocrit 35.5 % (39.0-53.0) Mean Corpuscular Volume 86 fL (79-100) Mean Corpuscular Hemoglobin 29 pg (25-35) Mean Corpuscular Hemoglobin Concent 34 g/dL (31-37) Red Cell Distribution Width 14.1 % (11.5-14.5) Platelet Count 297 x10^3/uL (140-400) Neutrophils (%) (Auto) 78 % (31-73) Lymphocytes (%) (Auto) 16 % (24-48) Monocytes (%) (Auto) 5 % (0-9) Eosinophils (%) (Auto) 1 % (0-3) Basophils (%) (Auto) 0 % (0-3) Neutrophils # (Auto) 9.4 x10^3uL (1.8-7.7) Lymphocytes # (Auto) 1.9 x10^3/uL (1.0-4.8) Monocytes # (Auto) 0.6 x10^3/uL (0.0-1.1) Eosinophils # (Auto) 0.1 x10^3/uL (0.0-0.7) Basophils # (Auto) 0.1 x10^3/uL (0.0-0.2) Sodium Level 139 mmol/L (136-145) Potassium Level 4.5 mmol/L (3.5-5.1) Chloride Level 102 mmol/L (98-107) Carbon Dioxide Level 30 mmol/L (21-32) Anion Gap 7 (6-14) Blood Urea Nitrogen 28 mg/dL (8-26) Creatinine 1.5 mg/dL (0.7-1.3) Estimated GFR (Cockcroft-Gault) 47.9 Glucose Level 198 mg/dL (70-99) Calcium Level 8.9 mg/dL (8.5-10.1) Phosphorus Level 3.5 mg/dL (2.6-4.7) Magnesium Level 1.9 mg/dL (1.8-2.4) Albumin 3.2 g/dL (3.4-5.0) Laboratory Tests Test 05/03/18 11:11 05/03/18 17:18 05/03/18 20:42 05/04/18 05:00 Glucose (Fingerstick) 316 mg/dL (70-99) 197 mg/dL (70-99) 259 mg/dL (70-99) White Blood Count 12.0 x10^3/uL (4.0-11.0) Red Blood Count 4.12 x10^6/uL (4.30-5.70) Hemoglobin 12.1 g/dL (13.0-17.5) Hematocrit 35.5 % (39.0-53.0) Mean Corpuscular Volume 86 fL (79-100) Mean Corpuscular Hemoglobin 29 pg (25-35) Mean Corpuscular Hemoglobin Concent 34 g/dL (31-37) Red Cell Distribution Width 14.1 % (11.5-14.5) Platelet Count 297 x10^3/uL (140-400) Neutrophils (%) (Auto) 78 % (31-73) Lymphocytes (%) (Auto) 16 % (24-48) Monocytes (%) (Auto) 5 % (0-9) Eosinophils (%) (Auto) 1 % (0-3) Basophils (%) (Auto) 0 % (0-3) Neutrophils # (Auto) 9.4 x10^3uL (1.8-7.7) Lymphocytes # (Auto) 1.9 x10^3/uL (1.0-4.8) Monocytes # (Auto) 0.6 x10^3/uL (0.0-1.1) Eosinophils # (Auto) 0.1 x10^3/uL (0.0-0.7) Basophils # (Auto) 0.1 x10^3/uL (0.0-0.2) Sodium Level 139 mmol/L (136-145) Potassium Level 4.5 mmol/L (3.5-5.1) Chloride Level 102 mmol/L (98-107) Carbon Dioxide Level 30 mmol/L (21-32) Anion Gap 7 (6-14) Blood Urea Nitrogen 28 mg/dL (8-26) Creatinine 1.5 mg/dL (0.7-1.3) Estimated GFR (Cockcroft-Gault) 47.9 Glucose Level 198 mg/dL (70-99) Calcium Level 8.9 mg/dL (8.5-10.1) Phosphorus Level 3.5 mg/dL (2.6-4.7) Magnesium Level 1.9 mg/dL (1.8-2.4) Albumin 3.2 g/dL (3.4-5.0) Test 05/04/18 07:37 Glucose (Fingerstick) 179 mg/dL (70-99) Microbiology 04/30/18 Blood Culture - Preliminary, Resulted NO GROWTH AFTER 4 DAYS 05/02/18 Anaerobic/Aerobic Culture, Resulted Pending 05/02/18 Anaerobic Culture Result 1 (MATTHEW), Resulted Pending 05/02/18 Aerobic Culture, Resulted Pending 05/02/18 Aerobic Culture Result 1 (MATTHEW), Resulted Pending 05/02/18 Gram Stain - Final, Resulted 05/02/18 Gram Stain Result 1 (MATTHEW) - Final, Resulted 05/02/18 Gram Stain Result 2 (MATTHEW) - Final, Resulted Medications Current Medications Acetaminophen (Tylenol) 500 mg 1X ONCE PO Last administered on 04/28/18at 22:00 ; Start 04/28/18 at 21:15; Stop 04/28/18 at 21:17; Status DC Vancomycin HCl 2 gm/Sodium Chloride 500 ml @ 250 mls/hr 1X ONCE IV Last administered on 04/29/18at 00:17; Start 04/28/18 at 22:00; Stop 04/28/18 at 23:59 ; Status DC Ceftriaxone Sodium 2 gm/ Dextrose 100 ml @ 200 mls/hr Q24H IV Last administered on 05/03/18at 21:05; Start 04/29/18 at 21:00 Fentanyl Citrate (Fentanyl 2ml Vial) 50 mcg PRN Q2HR PRN IV PAIN; Start at 21:15; Stop 04/29/18 at 21:14; Status DC Acetaminophen (Tylenol) 650 mg PRN Q4HRS PRN PO FEVER; Start 04/28/18 at 21:15 ; Stop 04/29/18 at 11:36; Status DC Sodium Chloride 1,000 ml @ 1,000 mls/hr 1X ONCE IV Last administered on at 22:00; Start 04/28/18 at 21:15; Stop 04/28/18 at 22:14; Status DC Mupirocin (Bactroban) 1 pelon 1X ONCE TP Last administered on 04/28/18at 21:30; Start 04/28/18 at 21:30; Stop 04/28/18 at 21:31; Status DC Ceftriaxone Sodium 2 gm/ Dextrose 100 ml @ 200 mls/hr ONCE ONCE IV Last administered on 04/28/18at 21:15; Start 04/28/18 at 21:15; Stop 04/28/18 at 21:44 ; Status DC Insulin Human Lispro (HumaLOG) 0-5 UNITS TIDWMEALS SQ ; Start 04/29/18 at 08:00 ; Stop 04/29/18 at 11:35; Status DC Dextrose (Dextrose 50%-Water Syringe) 12.5 gm PRN Q15MIN PRN IV SEE COMMENTS; Start 04/28/18 at 21:15; Stop 04/29/18 at 12:09; Status DC Ondansetron HCl (Zofran) 4 mg 1X ONCE IV Last administered on 04/28/18at 22:00 ; Start 04/28/18 at 22:00; Stop 04/28/18 at 22:01; Status DC Famotidine (Pepcid Vial) 20 mg 1X ONCE IVP Last administered on 04/28/18at 22: 00; Start 04/28/18 at 22:00; Stop 04/28/18 at 22:01; Status DC Info (Do NOT chart on this placeholder) 1 each 1X ONCE MC ; Start 04/29/18 at 09:00; Stop 04/29/18 at 09:01; Status UNV Influenza Virus Vaccine (Afluria Trivalent [id number] Syringe) 0.5 ml ONCE ONCE VAX IM Last administered on 04/29/18at 08:17; Start 04/29/18 at 09:00; Stop at 09:01; Status DC Insulin Human Lispro (HumaLOG) 0-9 UNITS TIDWMEALS SQ Last administered on 05/04at 08:32; Start 04/29/18 at 12:00 Dextrose (Dextrose 50%-Water Syringe) 12.5 gm PRN Q15MIN PRN IV SEE COMMENTS; Start 04/29/18 at 11:45 Ondansetron HCl (Zofran) 4 mg PRN Q6HRS PRN IV NAUSEA/VOMITING; Start 04/29/18 at 11:45 Ondansetron HCl (Zofran Odt) 4 mg PRN Q6HRS PRN PO NAUSEA/VOMITING; Start 04/29 at 11:45 Acetaminophen (Tylenol) 500 mg PRN Q6HRS PRN PO MILD PAIN / TEMP Last administered on 05/03/18at 11:24; Start 04/29/18 at 11:45 Amlodipine Besylate (Norvasc) 10 mg DAILY PO Last administered on 05/04/18at 08: 29; Start 04/29/18 at 12:00 Calcium Carbonate/ Glycine (Tums) 500 mg TID PRN PRN PO GI SYMPTOMS; Start at 11:45 Levothyroxine Sodium (Synthroid) 100 mcg DAILY07 PO Last administered on at 05:25; Start 04/29/18 at 12:00 Non-Formulary Medication (Blood Sugar Diagnostic (Accu-Chek Guide Test Strip)) 1 each QID MC ; Start 04/29/18 at 13:00; Status UNV Mirtazapine (Remeron) 45 mg QHS PO Last administered on 05/03/18at 21:09; Start 04/29/18 at 21:00 Insulin Glargine (Lantus) 52 units DAILYBFRSUP SQ Last administered on at 17:25; Start 04/29/18 at 17:00 Prazosin HCl (Minipress) 5 mg QHS PO Last administered on 05/03/18at 21:09; Start 04/29/18 at 21:00 Clonidine HCl (Catapres) 0.1 mg PRN Q1HR PRN PO HYPERTENSION, SEE COMMENTS; Start 04/29/18 at 11:45 Daptomycin 770 mg/ Sodium Chloride 50 ml @ 100 mls/hr Q24H IV ; Start 04/29/18 at 16:30; Stop 04/29/18 at 16:55; Status DC Daptomycin 770 mg/ Sodium Chloride 50 ml @ 100 mls/hr Q24H IV Last administered on 05/03/18at 17:27; Start 04/29/18 at 18:00; Stop 05/04/18 at 09:28 ; Status DC Lactobacillus Rhamnosus (Culturelle) 1 cap BID PO Last administered on at 08:28; Start 04/29/18 at 21:00 Insulin Human Lispro (HumaLOG) 10 units TIDWMEALS SQ Last administered on at 08:33; Start 04/30/18 at 12:00 Magnesium Sulfate 50 ml @ 25 mls/hr PRN DAILY PRN IV for Mag < 1.7 on am labs; Start 05/01/18 at 07:15 Ondansetron HCl (Zofran) 4 mg PRN Q6HRS PRN IV NAUSEA/VOMITING; Start 05/02/18 at 08:00; Stop 05/03/18 at 07:59; Status DC Fentanyl Citrate (Fentanyl 2ml Vial) 25 mcg PRN Q5MIN PRN IV MILD PAIN; Start 05/02/18 at 08:00; Stop 05/03/18 at 07:59; Status DC Fentanyl Citrate (Fentanyl 2ml Vial) 50 mcg PRN Q5MIN PRN IV MODERATE TO SEVERE PAIN; Start 05/02/18 at 08:00; Stop 05/03/18 at 07:59; Status DC Morphine Sulfate (Morphine Sulfate) 1 mg PRN Q10MIN PRN IV SEVERE PAIN; Start 05/02/18 at 08:00; Stop 05/03/18 at 07:59; Status DC Ringer's Solution 1,000 ml @ 30 mls/hr Q24H IV Last administered on 05/02/18at 15:45; Start 05/02/18 at 07:46; Stop 05/02/18 at 19:45; Status DC Lidocaine HCl (Xylocaine-Mpf 1% 2ml Vial) 2 ml PRN 1X PRN ID PRIOR TO IV START ; Start 05/02/18 at 08:00; Stop 05/03/18 at 07:59; Status DC Hydromorphone HCl (Dilaudid) 0.5 mg PRN Q10MIN PRN IV SEV PAIN, Second choice; Start 05/02/18 at 08:00; Stop 05/03/18 at 07:59; Status DC Prochlorperazine Edisylate (Compazine) 5 mg PACU PRN PRN IV NAUSEA, MRX1; Start 05/02/18 at 08:00; Stop 05/03/18 at 07:59; Status DC Metronidazole (Flagyl) 500 mg Q8HRS PO Last administered on 05/04/18at 05:25; Start 05/02/18 at 14:00 Dexamethasone Sodium Phosphate (Decadron) 20 mg STK-MED ONCE .ROUTE ; Start at 15:44; Stop 05/02/18 at 15:45; Status DC Famotidine (Pepcid Vial) 20 mg STK-MED ONCE .ROUTE ; Start 05/02/18 at 15:44; Stop 05/02/18 at 15:45; Status DC Ondansetron HCl (Zofran) 4 mg STK-MED ONCE .ROUTE ; Start 05/02/18 at 15:44; Stop 05/02/18 at 15:45; Status DC Propofol 20 ml @ As Directed STK-MED ONCE IV ; Start 05/02/18 at 15:44; Stop at 15:45; Status DC Fentanyl Citrate (Fentanyl 2ml Vial) 100 mcg STK-MED ONCE .ROUTE ; Start at 15:44; Stop 05/02/18 at 15:45; Status DC Midazolam HCl (Versed) 2 mg STK-MED ONCE .ROUTE ; Start 05/02/18 at 15:44; Stop 05/02/18 at 15:45; Status DC Succinylcholine Chloride (Anectine) 200 mg STK-MED ONCE .ROUTE ; Start 05/02/18 at 16:40; Stop 05/02/18 at 16:41; Status DC Ephedrine Sulfate (ePHEDrine PF IN SALINE SYRINGE) 50 mg STK-MED ONCE IV ; Start 05/02/18 at 17:40; Stop 05/02/18 at 17:41; Status DC Sevoflurane (Ultane) 30 ml STK-MED ONCE IH ; Start 05/02/18 at 17:41; Stop 05/02 at 17:42; Status DC Active Scripts Active Reported Prazosin Hcl 5 Mg Capsule 1 Cap PO QHS Amlodipine Besylate 10 Mg Tablet 10 Mg PO DAILY Remeron (Mirtazapine) 45 Mg Tablet 1 Tab PO QHS Accu-Chek Guide Test Strip (Blood Sugar Diagnostic) 1 Each Strip 1 Each MC QID Levothyroxine Sodium 100 Mcg Tablet 1 Tab PO DAILY Tums (Calcium Carbonate) 200 Mg Tab.chew 400 Mg PO TID PRN PRN Humulin N (Nph, Human Insulin Isophane) 100 Unit/1 Ml Vial 48 Unit SQ DAILYWBKFT Metformin Hcl 500 Mg Tablet 1,000 Mg PO BIDWMEALS Humulin N (Nph, Human Insulin Isophane) 100 Unit/1 Ml Vial 52 Unit SQ DAILYBFRSUP Lisinopril-Hctz 20-25 Mg Tab (Lisinopril/Hydrochlorothiazide) 1 Each Tablet 1 Tab PO DAILY Vitals/I & O Vital Sign - Last 24 Hours 05/03/18 05/03/18 05/03/18 05/03/18 11:00 15:00 19:00 20:00 Temp 98.2 98.0 98.1 98.2 98.0 98.1 Pulse 98 88 87 Resp 18 18 18 B/P (MAP) 126/70 (88) 118/58 (78) 133/70 (91) Pulse Ox 97 95 96 O2 Delivery Room Air Room Air Room Air Room Air 05/03/18 05/03/18 05/04/18 05/04/18 21:09 23:00 03:00 07:00 Temp 97.7 98.0 97.9 97.7 98.0 97.9 Pulse 87 90 117 85 Resp 18 18 18 B/P (MAP) 133/70 137/77 (97) 120/59 (79) 116/51 (72) Pulse Ox 98 98 96 O2 Delivery Room Air Room Air Room Air 05/04/18 08:29 Pulse 85 B/P (MAP) 116/51 Intake and Output 05/03/18 05/03/18 05/04/18 15:00 23:00 07:00 Intake Total 570 ml 400 ml Output Total 525 ml 600 ml Balance -525 ml -30 ml 400 ml ALBA RICH MD May 04, 2018 09:31
--- NOTE | 2018-05-04 10:05 | PDOC ---
SUBJECTIVE ROS No new concerns, OBJECTIVE Vital Signs Vital Signs Date Time Temp Pulse Resp B/P (MAP) Pulse Ox O2 Delivery O2 Flow Rate FiO2 05/04/18 08:30 Room Air 05/04/18 08:29 85 116/51 05/04/18 07:00 97.9 18 96 97.9 I & 0 Intake and Output 05/04/18 07:00 Intake Total 970 ml Output Total 1125 ml Balance -155 ml Intake Oral 920 ml IV Total 50 ml Output Urine Total 1125 ml # Voids 2 # Bowel Movements 4 PHYSICAL EXAM Physical Exam GENERAL: NAD HEENT: Oral mucosa moist. NECK: Supple. CHEST: Lungs clear. HEART: S1 and S2. ABDOMEN: Soft. Bowel sounds present. Obese. 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 Renal Sonogram done Creat in Aug 2017 1.9, No Prior labs available in our records HTN:Current BP meds reviewed. Blood pressures are relatively well controlled currently on present medications. No changes made Osteomyelitis of the left fifth toe: Defer to infectious disease physicians and specialists. Left third fourth and fifth toe amputations- 05/02 DM- Uncontrolled Discussed with patient COMMENT/RELEVANT DATA Meds Current Medications Medications (Trade) Dose Ordered Sig/Shoshana Start Time Stop Time Status Last Admin Dose Admin Acetaminophen (Tylenol) 500 mg PRN Q6HRS PRN 04/29/18 11:45 05/03/18 11:24 500 MG Amlodipine Besylate (Norvasc) 10 mg DAILY 04/29/18 12:00 05/04/18 08:29 10 MG Calcium Carbonate/ Glycine (Tums) 500 mg TID PRN PRN 04/29/18 11:45 Ceftriaxone Sodium 2 gm/ Dextrose 100 ml @ 200 mls/hr ONCE ONCE 04/28/18 21:15 04/28/18 21:44 DC 04/28/18 21:15 200 MLS/HR Clonidine HCl (Catapres) 0.1 mg PRN Q1HR PRN 04/29/18 11:45 Daptomycin 770 mg/ Sodium Chloride 50 ml @ 100 mls/hr Q24H 04/29/18 18:00 05/04/18 09:28 DC 05/03/18 17:27 100 MLS/HR Dexamethasone Sodium Phosphate (Decadron) 20 mg STK-MED ONCE 05/02/18 15:44 05/02/18 15:45 DC Dextrose (Dextrose 50%-Water Syringe) 12.5 gm PRN Q15MIN PRN 04/29/18 11:45 Ephedrine Sulfate (ePHEDrine PF IN SALINE SYRINGE) 50 mg STK-MED ONCE 05/02/18 17:40 05/02/18 17:41 DC Famotidine (Pepcid Vial) 20 mg STK-MED ONCE 05/02/18 15:44 05/02/18 15:45 DC Fentanyl Citrate (Fentanyl 2ml Vial) 100 mcg STK-MED ONCE 05/02/18 15:44 05/02/18 15:45 DC Hydromorphone HCl (Dilaudid) 0.5 mg PRN Q10MIN PRN 05/02/18 08:00 05/03/18 07:59 DC Influenza Virus Vaccine (Afluria Trivalent [id number] Syringe) 0.5 ml ONCE ONCE 04/29/18 09:00 04/29/18 09:01 DC 04/29/18 08:17 0.5 ML Info (Do NOT chart on this placeholder) 1 each 1X ONCE 04/29/18 09:00 04/29/18 09:01 UNV Insulin Glargine (Lantus) 52 units DAILYBFRSUP 04/29/18 17:00 05/03/18 17:25 52 UNITS Insulin Human Lispro (HumaLOG) 10 units TIDWMEALS 04/30/18 12:00 05/04/18 08:33 10 UNITS Lactobacillus Rhamnosus (Culturelle) 1 cap BID 04/29/18 21:00 05/04/18 08:28 1 CAP Levothyroxine Sodium (Synthroid) 100 mcg DAILY07 04/29/18 12:00 05/04/18 05:25 100 MCG Lidocaine HCl (Xylocaine-Mpf 1% 2ml Vial) 2 ml PRN 1X PRN 05/02/18 08:00 05/03/18 07:59 DC Magnesium Sulfate 50 ml @ 25 mls/hr PRN DAILY PRN 05/01/18 07:15 Metronidazole (Flagyl) 500 mg Q8HRS 05/02/18 14:00 05/04/18 05:25 500 MG Midazolam HCl (Versed) 2 mg STK-MED ONCE 05/02/18 15:44 05/02/18 15:45 DC Mirtazapine (Remeron) 45 mg QHS 04/29/18 21:00 05/03/18 21:09 45 MG Morphine Sulfate (Morphine Sulfate) 1 mg PRN Q10MIN PRN 05/02/18 08:00 05/03/18 07:59 DC Mupirocin (Bactroban) 1 pelon 1X ONCE 04/28/18 21:30 04/28/18 21:31 DC 04/28/18 21:30 1 PELON Non-Formulary Medication (Blood Sugar Diagnostic (Accu-Chek Guide Test Strip)) 1 each QID 04/29/18 13:00 UNV Ondansetron HCl (Zofran Odt) 4 mg PRN Q6HRS PRN 04/29/18 11:45 Ondansetron HCl (Zofran) 4 mg STK-MED ONCE 05/02/18 15:44 05/02/18 15:45 DC Prazosin HCl (Minipress) 5 mg QHS 04/29/18 21:00 05/03/18 21:09 5 MG Prochlorperazine Edisylate (Compazine) 5 mg PACU PRN PRN 05/02/18 08:00 05/03/18 07:59 DC Propofol 20 ml @ As Directed STK-MED ONCE 05/02/18 15:44 05/02/18 15:45 DC Ringer's Solution 1,000 ml @ 30 mls/hr Q24H 05/02/18 07:46 05/02/18 19:45 DC 05/02/18 15:45 30 MLS/HR Sevoflurane (Ultane) 30 ml STK-MED ONCE 05/02/18 17:41 05/02/18 17:42 DC Sodium Chloride 1,000 ml @ 1,000 mls/hr 1X ONCE 04/28/18 21:15 04/28/18 22:14 DC 04/28/18 22:00 1,000 MLS/HR Succinylcholine Chloride (Anectine) 200 mg STK-MED ONCE 05/02/18 16:40 05/02/18 16:41 DC Vancomycin HCl 2 gm/Sodium Chloride 500 ml @ 250 mls/hr 1X ONCE 04/28/18 22:00 04/28/18 23:59 DC 04/29/18 00:17 250 MLS/HR Lab Laboratory Tests Test 05/03/18 11:11 05/03/18 17:18 05/03/18 20:42 05/04/18 05:00 Glucose (Fingerstick) 316 mg/dL (70-99) 197 mg/dL (70-99) 259 mg/dL (70-99) White Blood Count 12.0 x10^3/uL (4.0-11.0) Red Blood Count 4.12 x10^6/uL (4.30-5.70) Hemoglobin 12.1 g/dL (13.0-17.5) Hematocrit 35.5 % (39.0-53.0) Mean Corpuscular Volume 86 fL (79-100) Mean Corpuscular Hemoglobin 29 pg (25-35) Mean Corpuscular Hemoglobin Concent 34 g/dL (31-37) Red Cell Distribution Width 14.1 % (11.5-14.5) Platelet Count 297 x10^3/uL (140-400) Neutrophils (%) (Auto) 78 % (31-73) Lymphocytes (%) (Auto) 16 % (24-48) Monocytes (%) (Auto) 5 % (0-9) Eosinophils (%) (Auto) 1 % (0-3) Basophils (%) (Auto) 0 % (0-3) Neutrophils # (Auto) 9.4 x10^3uL (1.8-7.7) Lymphocytes # (Auto) 1.9 x10^3/uL (1.0-4.8) Monocytes # (Auto) 0.6 x10^3/uL (0.0-1.1) Eosinophils # (Auto) 0.1 x10^3/uL (0.0-0.7) Basophils # (Auto) 0.1 x10^3/uL (0.0-0.2) Sodium Level 139 mmol/L (136-145) Potassium Level 4.5 mmol/L (3.5-5.1) Chloride Level 102 mmol/L (98-107) Carbon Dioxide Level 30 mmol/L (21-32) Anion Gap 7 (6-14) Blood Urea Nitrogen 28 mg/dL (8-26) Creatinine 1.5 mg/dL (0.7-1.3) Estimated GFR (Cockcroft-Gault) 47.9 Glucose Level 198 mg/dL (70-99) Calcium Level 8.9 mg/dL (8.5-10.1) Phosphorus Level 3.5 mg/dL (2.6-4.7) Magnesium Level 1.9 mg/dL (1.8-2.4) Albumin 3.2 g/dL (3.4-5.0) Test 05/04/18 07:37 Glucose (Fingerstick) 179 mg/dL (70-99) Results All relevant outside records, renal labs, imaging studies, telemetry/EKG's were reviewed. IVET MARTINES MD May 04, 2018 10:05
[2018-05-04 11:00] VITALS: BP 143/70
[2018-05-04 15:00] VITALS: BP 130/60
[2018-05-04] MEDS: INSULIN GLARGINE 300 UNITS/3 ML INSULN.PEN. SQ SCH (17:40)
[2018-05-04 19:00] VITALS: BP 162/74
[2018-05-04] MEDS ORDERED: INSULIN LISPRO 300 UNITS/3 ML INSULN.PEN. SQ ONE ×2 (20:45)
[2018-05-04] MEDS: PRAZOSIN 1 MG CAPSULE. PO SCH (21:00)
[2018-05-04] MEDS: MIRTAZAPINE 15 MG TABLET PO SCH (21:01)
[2018-05-04] MEDS: ACETAMINOPHEN 500 MG TABLET PO PRN (21:01)
[2018-05-04] MEDS: cefTRIAXone SODIUM 2 GM in IV DEXTROSE 5% 100ML 100 ML IV SCH (21:01)
[2018-05-04 23:00] VITALS: BP 141/54
[2018-05-05 03:00] VITALS: BP 147/79
[2018-05-05 05:26] LABS: BASO # 0.1 x10^3/uL (0.0-0.2); BASO % 1 % (0-3); EOS # 0.1 x10^3/uL (0.0-0.7); EOS % 1 % (0-3); HEMATOCRIT 35.6 % (39.0-53.0); HEMOGLOBIN 12.3 g/dL (13.0-17.5); LYMPH # 3.3 x10^3/uL (1.0-4.8); LYMPH % 35 % (24-48); MEAN CORPUSCULAR HEMOGLOBIN 30 pg (25-35); MEAN CORPUSCULAR HGB CONC 35 g/dL (31-37); MEAN CORPUSCULAR VOLUME 86 fL (79-100); MONO # 0.6 x10^3/uL (0.0-1.1); MONO % 7 % (0-9); NEUT # 5.2 x10^3uL (1.8-7.7); NEUT % 56 % (31-73); PLATELET COUNT 285 x10^3/uL (140-400); RED BLOOD COUNT 4.14 x10^6/uL (4.30-5.70); WHITE BLOOD COUNT 9.3 x10^3/uL (4.0-11.0)
[2018-05-05] MEDS: LEVOTHYROXINE 100 MCG TABLET PO SCH (05:47)
[2018-05-05] MEDS: metroNIDAZOLE 500 MG TABLET PO SCH ×3 (05:47→21:50)
[2018-05-05 06:09] LABS: ALBUMIN 3.1 g/dL (3.4-5.0); CALCIUM 9.4 mg/dL (8.5-10.1); CREATININE 1.2 mg/dL (0.7-1.3); MAGNESIUM 1.9 mg/dL (1.8-2.4); PHOSPHORUS 4.3 mg/dL (2.6-4.7); POTASSIUM 3.9 mmol/L (3.5-5.1)
[2018-05-05 07:00] VITALS: BP 134/70
[2018-05-05] MEDS: INSULIN LISPRO 300 UNITS/3 ML INSULN.PEN. SQ SCH ×3 (08:12→17:39)
[2018-05-05] MEDS: amLODIPine BESYLATE 10 MG TABLET PO SCH (08:16)
--- NOTE | 2018-05-05 08:58 | PDOC ---
Infectious Disease Note Subjective Subjective Pt says better. Some mild foot pain at times but better no n/v/d/sob/rash or aches ROS ROS o/w neg Vital Sign Vital Signs Vital Signs Date Time Temp Pulse Resp B/P (MAP) Pulse Ox O2 Delivery O2 Flow Rate FiO2 05/05/18 08:16 83 147/79 05/05/18 07:00 96.6 17 97 Room Air 96.6 Physical Exam PHYSICAL EXAM GENERAL: Well-developed and well-nourished male lying comfortably in bed, in no acute distress. HEENT: Anicteric. Oral mucosa moist. NECK: Supple. CHEST: Lungs clear. HEART: S1 and S2. ABDOMEN: Soft. Bowel sounds present. Obese. No hepatosplenomegaly. EXTREMITIES: No edema, no cyanosis and no clubbing. Left foot incision is intact. Mild drainage. No pus SKIN; No rash Labs Lab Laboratory Tests Test 05/04/18 10:47 05/04/18 16:49 05/04/18 20:28 05/05/18 04:10 Glucose (Fingerstick) 216 mg/dL (70-99) 174 mg/dL (70-99) 269 mg/dL (70-99) White Blood Count 9.3 x10^3/uL (4.0-11.0) Red Blood Count 4.14 x10^6/uL (4.30-5.70) Hemoglobin 12.3 g/dL (13.0-17.5) Hematocrit 35.6 % (39.0-53.0) Mean Corpuscular Volume 86 fL (79-100) Mean Corpuscular Hemoglobin 30 pg (25-35) Mean Corpuscular Hemoglobin Concent 35 g/dL (31-37) Red Cell Distribution Width 14.0 % (11.5-14.5) Platelet Count 285 x10^3/uL (140-400) Neutrophils (%) (Auto) 56 % (31-73) Lymphocytes (%) (Auto) 35 % (24-48) Monocytes (%) (Auto) 7 % (0-9) Eosinophils (%) (Auto) 1 % (0-3) Basophils (%) (Auto) 1 % (0-3) Neutrophils # (Auto) 5.2 x10^3uL (1.8-7.7) Lymphocytes # (Auto) 3.3 x10^3/uL (1.0-4.8) Monocytes # (Auto) 0.6 x10^3/uL (0.0-1.1) Eosinophils # (Auto) 0.1 x10^3/uL (0.0-0.7) Basophils # (Auto) 0.1 x10^3/uL (0.0-0.2) Sodium Level 143 mmol/L (136-145) Potassium Level 3.9 mmol/L (3.5-5.1) Chloride Level 104 mmol/L (98-107) Carbon Dioxide Level 30 mmol/L (21-32) Anion Gap 9 (6-14) Blood Urea Nitrogen 26 mg/dL (8-26) Creatinine 1.2 mg/dL (0.7-1.3) Estimated GFR (Cockcroft-Gault) 62.0 Glucose Level 74 mg/dL (70-99) Calcium Level 9.4 mg/dL (8.5-10.1) Phosphorus Level 4.3 mg/dL (2.6-4.7) Magnesium Level 1.9 mg/dL (1.8-2.4) Albumin 3.1 g/dL (3.4-5.0) Test 05/05/18 07:25 Glucose (Fingerstick) 97 mg/dL (70-99) Micro Blood cult 04/28 BLD CULT RESULT 1 Final Staphylococcus aureus Most isolates of Staphylococcus sp. produce a beta- lactamase enzyme rendering them resistant to penicillin. Please contact the laboratory if penicillin is being considered for therapy. Based on susceptibility to oxacillin this isolate would be susceptible to: * Beta-lactam/beta-lactamase inhibitor combinations; such as: Amoxicillin-clavulanic acid Ampicillin-sulbactam * Antistaphylococcal cephems; such as: Cefaclor Cefuroxime * Antistaphylococcal carbapenems; such as: Imipenem Meropenem ANTIMICROBIAL SUSCEPTIBILITY Final Comment S = Susceptible; I = Intermediate; R = Resistant P = Positive; N = Negative MICS are expressed in micrograms per mL Antibiotic RSLT#1 RSLT#2 RSLT#3 RSLT#4 Ciprofloxacin S<=0.5 Gentamicin S<=0.5 Levofloxacin S =0.25 Linezolid S =2 Moxifloxacin S<=0.25 Nitrofurantoin S<=16 Oxacillin S<=0.25 Quinupristin/Dalfopristin S<=0.25 CONTINUED ON NEXT PAGE RUN DATE: 05/03/18 PAGE 2 RUN TIME: 2111 [facility] [address] [place] [address] Felice Capellan M.D., [employer]phalt Tile Floor Layer SPEC: [id number] PATIENT: MISAEL DON [id number] ( Continued) Procedure Result ANTIMICROBIAL SUSCEPTIBILITY Final (continued) Rifampin S<=0.5 Tetracycline S<=1 Trimethoprim/Sulfa S<=10 Vancomycin S<=0.5 04/28 - Blood BLOOD CULTURE LC Preliminary Preliminary report BLD CULT RESULT 1 Preliminary Staphylococcus aureus Microbiology 04/30/18 Blood Culture - Preliminary, Resulted NO GROWTH AFTER 2 DAYS Objective Assessment MSSA sepsis - POA 04/28 s/p Left fifth toe diabetic foot wound infection/OM s/p amp 05/02 - cults so far neg Leukocytosis - post op and post Dexamentasone History of left second toe amputation for osteomyelitis. Diabetes mellitus with neuropathy. Acute kidney injury. Plan Plan of Care Continue empiric ceftriaxone/Flagylf/u wound cults r/o other bacteria ie GNR Cont Local care Follow up repeat Blood culture 05/03 Social service eval D/w RAFAEL Alegria MD May 05, 2018 08:58
--- NOTE | 2018-05-05 10:31 | PDOC ---
PROGRESS NOTES Chief Complaint Chief Complaint Diabetic wound, left 5th toe, deep wound small toe marrow edema with T1 marrow replacement at the lateral aspect of the proximal and middle phalanx consistent with acute osteomyelitis. diffuse T1 signal changes within the third metatarsal head and neck with associated marrow edema and erosive change in the prior radiographs, also likely osteomyelitis. 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 CR NOW 1.2 Diabetes type 2 hemoglobin A1c 7.1 , good control Obesity with a BMI 39 Hypertension, controlled Incarcerated MONTY, VMN possible CKD stage 4 pos blood cult gram pos bacteremia F/U REPEAT CULT 05/03, BLOOD History of Present Illness History of Present Illness cont the IV antibiotics, MRI toe reviewed ESR is mildly reassuring cultures Avoid nephrotoxins Local wound care Sliding-scale insulin surgery later today Vitals Vitals Vital Signs Date Time Temp Pulse Resp B/P (MAP) Pulse Ox O2 Delivery O2 Flow Rate FiO2 05/05/18 08:16 83 147/79 05/05/18 07:00 96.6 17 97 Room Air 96.6 Physical Exam Physical Exam GENERAL: Well-developed and well-nourished male lying comfortably in bed, in no acute distress. HEENT: Anicteric. Oral mucosa moist. NECK: Supple. CHEST: Lungs clear. HEART: S1 and S2. ABDOMEN: Soft. Bowel sounds present. Obese. No hepatosplenomegaly. EXTREMITIES: No edema, no cyanosis and no clubbing. Left foot incision is intact. Mild drainage. No pus SKIN; No rash General: Alert, Oriented X3, Cooperative, No acute distress, mild distress Heart: Regular rate, Normal S1, Normal S2 Lungs: Clear Abdomen: Normal bowel sounds, Soft, No tenderness, No hepatosplenomegaly, No masses Extremities: No clubbing, No cyanosis, Other (second left toe amputation- Diabetes wound left pinky toe lateral surface with some packing, mild erythema no foul-smelling discharge, no significant tenderness on exam) Skin: Other (DRESSING DRY, CLEAN INTACT) Labs LABS Laboratory Tests Test 05/04/18 10:47 05/04/18 16:49 05/04/18 20:28 05/05/18 04:10 Glucose (Fingerstick) 216 mg/dL (70-99) 174 mg/dL (70-99) 269 mg/dL (70-99) White Blood Count 9.3 x10^3/uL (4.0-11.0) Red Blood Count 4.14 x10^6/uL (4.30-5.70) Hemoglobin 12.3 g/dL (13.0-17.5) Hematocrit 35.6 % (39.0-53.0) Mean Corpuscular Volume 86 fL (79-100) Mean Corpuscular Hemoglobin 30 pg (25-35) Mean Corpuscular Hemoglobin Concent 35 g/dL (31-37) Red Cell Distribution Width 14.0 % (11.5-14.5) Platelet Count 285 x10^3/uL (140-400) Neutrophils (%) (Auto) 56 % (31-73) Lymphocytes (%) (Auto) 35 % (24-48) Monocytes (%) (Auto) 7 % (0-9) Eosinophils (%) (Auto) 1 % (0-3) Basophils (%) (Auto) 1 % (0-3) Neutrophils # (Auto) 5.2 x10^3uL (1.8-7.7) Lymphocytes # (Auto) 3.3 x10^3/uL (1.0-4.8) Monocytes # (Auto) 0.6 x10^3/uL (0.0-1.1) Eosinophils # (Auto) 0.1 x10^3/uL (0.0-0.7) Basophils # (Auto) 0.1 x10^3/uL (0.0-0.2) Sodium Level 143 mmol/L (136-145) Potassium Level 3.9 mmol/L (3.5-5.1) Chloride Level 104 mmol/L (98-107) Carbon Dioxide Level 30 mmol/L (21-32) Anion Gap 9 (6-14) Blood Urea Nitrogen 26 mg/dL (8-26) Creatinine 1.2 mg/dL (0.7-1.3) Estimated GFR (Cockcroft-Gault) 62.0 Glucose Level 74 mg/dL (70-99) Calcium Level 9.4 mg/dL (8.5-10.1) Phosphorus Level 4.3 mg/dL (2.6-4.7) Magnesium Level 1.9 mg/dL (1.8-2.4) Albumin 3.1 g/dL (3.4-5.0) Test 9/27/18 07:25 Glucose (Fingerstick) 97 mg/dL (70-99) Assessment and Plan Assessmemt and Plan Problems Medical Problems: (1) Cellulitis of toe of left foot Status: Acute Comment Review of Relevant I have reviewed the following items ministerio (where applicable) has been applied. Labs Laboratory Tests Test 05/03/18 11:11 05/03/18 17:18 05/03/18 20:42 05/04/18 05:00 Glucose (Fingerstick) 316 mg/dL (70-99) 197 mg/dL (70-99) 259 mg/dL (70-99) White Blood Count 12.0 x10^3/uL (4.0-11.0) Red Blood Count 4.12 x10^6/uL (4.30-5.70) Hemoglobin 12.1 g/dL (13.0-17.5) Hematocrit 35.5 % (39.0-53.0) Mean Corpuscular Volume 86 fL (79-100) Mean Corpuscular Hemoglobin 29 pg (25-35) Mean Corpuscular Hemoglobin Concent 34 g/dL (31-37) Red Cell Distribution Width 14.1 % (11.5-14.5) Platelet Count 297 x10^3/uL (140-400) Neutrophils (%) (Auto) 78 % (31-73) Lymphocytes (%) (Auto) 16 % (24-48) Monocytes (%) (Auto) 5 % (0-9) Eosinophils (%) (Auto) 1 % (0-3) Basophils (%) (Auto) 0 % (0-3) Neutrophils # (Auto) 9.4 x10^3uL (1.8-7.7) Lymphocytes # (Auto) 1.9 x10^3/uL (1.0-4.8) Monocytes # (Auto) 0.6 x10^3/uL (0.0-1.1) Eosinophils # (Auto) 0.1 x10^3/uL (0.0-0.7) Basophils # (Auto) 0.1 x10^3/uL (0.0-0.2) Sodium Level 139 mmol/L (136-145) Potassium Level 4.5 mmol/L (3.5-5.1) Chloride Level 102 mmol/L (98-107) Carbon Dioxide Level 30 mmol/L (21-32) Anion Gap 7 (6-14) Blood Urea Nitrogen 28 mg/dL (8-26) Creatinine 1.5 mg/dL (0.7-1.3) Estimated GFR (Cockcroft-Gault) 47.9 Glucose Level 198 mg/dL (70-99) Calcium Level 8.9 mg/dL (8.5-10.1) Phosphorus Level 3.5 mg/dL (2.6-4.7) Magnesium Level 1.9 mg/dL (1.8-2.4) Albumin 3.2 g/dL (3.4-5.0) Test 05/04/18 07:37 05/04/18 10:47 05/04/18 16:49 05/04/18 20:28 Glucose (Fingerstick) 179 mg/dL (70-99) 216 mg/dL (70-99) 174 mg/dL (70-99) 269 mg/dL (70-99) Test 05/05/18 04:10 05/05/18 07:25 White Blood Count 9.3 x10^3/uL (4.0-11.0) Red Blood Count 4.14 x10^6/uL (4.30-5.70) Hemoglobin 12.3 g/dL (13.0-17.5) Hematocrit 35.6 % (39.0-53.0) Mean Corpuscular Volume 86 fL (79-100) Mean Corpuscular Hemoglobin 30 pg (25-35) Mean Corpuscular Hemoglobin Concent 35 g/dL (31-37) Red Cell Distribution Width 14.0 % (11.5-14.5) Platelet Count 285 x10^3/uL (140-400) Neutrophils (%) (Auto) 56 % (31-73) Lymphocytes (%) (Auto) 35 % (24-48) Monocytes (%) (Auto) 7 % (0-9) Eosinophils (%) (Auto) 1 % (0-3) Basophils (%) (Auto) 1 % (0-3) Neutrophils # (Auto) 5.2 x10^3uL (1.8-7.7) Lymphocytes # (Auto) 3.3 x10^3/uL (1.0-4.8) Monocytes # (Auto) 0.6 x10^3/uL (0.0-1.1) Eosinophils # (Auto) 0.1 x10^3/uL (0.0-0.7) Basophils # (Auto) 0.1 x10^3/uL (0.0-0.2) Sodium Level 143 mmol/L (136-145) Potassium Level 3.9 mmol/L (3.5-5.1) Chloride Level 104 mmol/L (98-107) Carbon Dioxide Level 30 mmol/L (21-32) Anion Gap 9 (6-14) Blood Urea Nitrogen 26 mg/dL (8-26) Creatinine 1.2 mg/dL (0.7-1.3) Estimated GFR (Cockcroft-Gault) 62.0 Glucose Level 74 mg/dL (70-99) Calcium Level 9.4 mg/dL (8.5-10.1) Phosphorus Level 4.3 mg/dL (2.6-4.7) Magnesium Level 1.9 mg/dL (1.8-2.4) Albumin 3.1 g/dL (3.4-5.0) Glucose (Fingerstick) 97 mg/dL (70-99) Laboratory Tests Test 05/04/18 10:47 05/04/18 16:49 05/04/18 20:28 05/05/18 04:10 Glucose (Fingerstick) 216 mg/dL (70-99) 174 mg/dL (70-99) 269 mg/dL (70-99) White Blood Count 9.3 x10^3/uL (4.0-11.0) Red Blood Count 4.14 x10^6/uL (4.30-5.70) Hemoglobin 12.3 g/dL (13.0-17.5) Hematocrit 35.6 % (39.0-53.0) Mean Corpuscular Volume 86 fL (79-100) Mean Corpuscular Hemoglobin 30 pg (25-35) Mean Corpuscular Hemoglobin Concent 35 g/dL (31-37) Red Cell Distribution Width 14.0 % (11.5-14.5) Platelet Count 285 x10^3/uL (140-400) Neutrophils (%) (Auto) 56 % (31-73) Lymphocytes (%) (Auto) 35 % (24-48) Monocytes (%) (Auto) 7 % (0-9) Eosinophils (%) (Auto) 1 % (0-3) Basophils (%) (Auto) 1 % (0-3) Neutrophils # (Auto) 5.2 x10^3uL (1.8-7.7) Lymphocytes # (Auto) 3.3 x10^3/uL (1.0-4.8) Monocytes # (Auto) 0.6 x10^3/uL (0.0-1.1) Eosinophils # (Auto) 0.1 x10^3/uL (0.0-0.7) Basophils # (Auto) 0.1 x10^3/uL (0.0-0.2) Sodium Level 143 mmol/L (136-145) Potassium Level 3.9 mmol/L (3.5-5.1) Chloride Level 104 mmol/L (98-107) Carbon Dioxide Level 30 mmol/L (21-32) Anion Gap 9 (6-14) Blood Urea Nitrogen 26 mg/dL (8-26) Creatinine 1.2 mg/dL (0.7-1.3) Estimated GFR (Cockcroft-Gault) 62.0 Glucose Level 74 mg/dL (70-99) Calcium Level 9.4 mg/dL (8.5-10.1) Phosphorus Level 4.3 mg/dL (2.6-4.7) Magnesium Level 1.9 mg/dL (1.8-2.4) Albumin 3.1 g/dL (3.4-5.0) Test 05/05/18 07:25 Glucose (Fingerstick) 97 mg/dL (70-99) Microbiology 05/03/18 Blood Culture - Preliminary, Resulted NO GROWTH AFTER 1 DAY 05/02/18 Anaerobic/Aerobic Culture, Resulted Pending 05/02/18 Anaerobic Culture Result 1 (MATTHEW), Resulted Pending 05/02/18 Aerobic Culture, Resulted Pending 05/02/18 Aerobic Culture Result 1 (MATTHEW), Resulted Pending 05/02/18 Gram Stain - Final, Resulted 05/02/18 Gram Stain Result 1 (MATTHEW) - Final, Resulted 05/02/18 Gram Stain Result 2 (MATTHEW) - Final, Resulted Medications Current Medications Acetaminophen (Tylenol) 500 mg 1X ONCE PO Last administered on 04/28/18at 22:00 ; Start 04/28/18 at 21:15; Stop 04/28/18 at 21:17; Status DC Vancomycin HCl 2 gm/Sodium Chloride 500 ml @ 250 mls/hr 1X ONCE IV Last administered on 04/29/18at 00:17; Start 04/28/18 at 22:00; Stop 04/28/18 at 23:59 ; Status DC Ceftriaxone Sodium 2 gm/ Dextrose 100 ml @ 200 mls/hr Q24H IV Last administered on 05/04/18at 21:01; Start 04/29/18 at 21:00 Fentanyl Citrate (Fentanyl 2ml Vial) 50 mcg PRN Q2HR PRN IV PAIN; Start at 21:15; Stop 04/29/18 at 21:14; Status DC Acetaminophen (Tylenol) 650 mg PRN Q4HRS PRN PO FEVER; Start 04/28/18 at 21:15 ; Stop 04/29/18 at 11:36; Status DC Sodium Chloride 1,000 ml @ 1,000 mls/hr 1X ONCE IV Last administered on at 22:00; Start 04/28/18 at 21:15; Stop 04/28/18 at 22:14; Status DC Mupirocin (Bactroban) 1 pelon 1X ONCE TP Last administered on 04/28/18at 21:30; Start 04/28/18 at 21:30; Stop 04/28/18 at 21:31; Status DC Ceftriaxone Sodium 2 gm/ Dextrose 100 ml @ 200 mls/hr ONCE ONCE IV Last administered on 04/28/18at 21:15; Start 04/28/18 at 21:15; Stop 04/28/18 at 21:44 ; Status DC Insulin Human Lispro (HumaLOG) 0-5 UNITS TIDWMEALS SQ ; Start 04/29/18 at 08:00 ; Stop 04/29/18 at 11:35; Status DC Dextrose (Dextrose 50%-Water Syringe) 12.5 gm PRN Q15MIN PRN IV SEE COMMENTS; Start 04/28/18 at 21:15; Stop 04/29/18 at 12:09; Status DC Ondansetron HCl (Zofran) 4 mg 1X ONCE IV Last administered on 04/28/18at 22:00 ; Start 04/28/18 at 22:00; Stop 04/28/18 at 22:01; Status DC Famotidine (Pepcid Vial) 20 mg 1X ONCE IVP Last administered on 04/28/18at 22: 00; Start 04/28/18 at 22:00; Stop 04/28/18 at 22:01; Status DC Info (Do NOT chart on this placeholder) 1 each 1X ONCE MC ; Start 04/29/18 at 09:00; Stop 04/29/18 at 09:01; Status UNV Influenza Virus Vaccine (Afluria Trivalent [id number] Syringe) 0.5 ml ONCE ONCE VAX IM Last administered on 04/29/18at 08:17; Start 04/29/18 at 09:00; Stop at 09:01; Status DC Insulin Human Lispro (HumaLOG) 0-9 UNITS TIDWMEALS SQ Last administered on 05/04at 17:41; Start 04/29/18 at 12:00; Stop 05/04/18 at 20:37; Status DC Dextrose (Dextrose 50%-Water Syringe) 12.5 gm PRN Q15MIN PRN IV SEE COMMENTS; Start 04/29/18 at 11:45 Ondansetron HCl (Zofran) 4 mg PRN Q6HRS PRN IV NAUSEA/VOMITING; Start 04/29/18 at 11:45 Ondansetron HCl (Zofran Odt) 4 mg PRN Q6HRS PRN PO NAUSEA/VOMITING; Start 04/29 at 11:45 Acetaminophen (Tylenol) 500 mg PRN Q6HRS PRN PO MILD PAIN / TEMP Last administered on 05/04/18at 21:01; Start 04/29/18 at 11:45 Amlodipine Besylate (Norvasc) 10 mg DAILY PO Last administered on 05/05/18at 08: 16; Start 04/29/18 at 12:00 Calcium Carbonate/ Glycine (Tums) 500 mg TID PRN PRN PO GI SYMPTOMS; Start at 11:45 Levothyroxine Sodium (Synthroid) 100 mcg DAILY07 PO Last administered on at 05:47; Start 04/29/18 at 12:00 Non-Formulary Medication (Blood Sugar Diagnostic (Accu-Chek Guide Test Strip)) 1 each QID MC ; Start 04/29/18 at 13:00; Status UNV Mirtazapine (Remeron) 45 mg QHS PO Last administered on 05/04/18at 21:01; Start 04/29/18 at 21:00 Insulin Glargine (Lantus) 52 units DAILYBFRSUP SQ Last administered on at 17:40; Start 04/29/18 at 17:00 Prazosin HCl (Minipress) 5 mg QHS PO Last administered on 05/04/18at 21:00; Start 04/29/18 at 21:00 Clonidine HCl (Catapres) 0.1 mg PRN Q1HR PRN PO HYPERTENSION, SEE COMMENTS; Start 04/29/18 at 11:45 Daptomycin 770 mg/ Sodium Chloride 50 ml @ 100 mls/hr Q24H IV ; Start 04/29/18 at 16:30; Stop 04/29/18 at 16:55; Status DC Daptomycin 770 mg/ Sodium Chloride 50 ml @ 100 mls/hr Q24H IV Last administered on 05/03/18at 17:27; Start 04/29/18 at 18:00; Stop 05/04/18 at 09:28 ; Status DC Lactobacillus Rhamnosus (Culturelle) 1 cap BID PO Last administered on at 21:01; Start 04/29/18 at 21:00 Insulin Human Lispro (HumaLOG) 10 units TIDWMEALS SQ Last administered on at 08:12; Start 04/30/18 at 12:00 Magnesium Sulfate 50 ml @ 25 mls/hr PRN DAILY PRN IV for Mag < 1.7 on am labs; Start 05/01/18 at 07:15 Ondansetron HCl (Zofran) 4 mg PRN Q6HRS PRN IV NAUSEA/VOMITING; Start 05/02/18 at 08:00; Stop 05/03/18 at 07:59; Status DC Fentanyl Citrate (Fentanyl 2ml Vial) 25 mcg PRN Q5MIN PRN IV MILD PAIN; Start 05/02/18 at 08:00; Stop 05/03/18 at 07:59; Status DC Fentanyl Citrate (Fentanyl 2ml Vial) 50 mcg PRN Q5MIN PRN IV MODERATE TO SEVERE PAIN; Start 05/02/18 at 08:00; Stop 05/03/18 at 07:59; Status DC Morphine Sulfate (Morphine Sulfate) 1 mg PRN Q10MIN PRN IV SEVERE PAIN; Start 05/02/18 at 08:00; Stop 05/03/18 at 07:59; Status DC Ringer's Solution 1,000 ml @ 30 mls/hr Q24H IV Last administered on 05/02/18at 15:45; Start 05/02/18 at 07:46; Stop 05/02/18 at 19:45; Status DC Lidocaine HCl (Xylocaine-Mpf 1% 2ml Vial) 2 ml PRN 1X PRN ID PRIOR TO IV START ; Start 05/02/18 at 08:00; Stop 05/03/18 at 07:59; Status DC Hydromorphone HCl (Dilaudid) 0.5 mg PRN Q10MIN PRN IV SEV PAIN, Second choice; Start 05/02/18 at 08:00; Stop 05/03/18 at 07:59; Status DC Prochlorperazine Edisylate (Compazine) 5 mg PACU PRN PRN IV NAUSEA, MRX1; Start 05/02/18 at 08:00; Stop 05/03/18 at 07:59; Status DC Metronidazole (Flagyl) 500 mg Q8HRS PO Last administered on 05/05/18at 05:47; Start 05/02/18 at 14:00 Dexamethasone Sodium Phosphate (Decadron) 20 mg STK-MED ONCE .ROUTE ; Start at 15:44; Stop 05/02/18 at 15:45; Status DC Famotidine (Pepcid Vial) 20 mg STK-MED ONCE .ROUTE ; Start 05/02/18 at 15:44; Stop 05/02/18 at 15:45; Status DC Ondansetron HCl (Zofran) 4 mg STK-MED ONCE .ROUTE ; Start 05/02/18 at 15:44; Stop 05/02/18 at 15:45; Status DC Propofol 20 ml @ As Directed STK-MED ONCE IV ; Start 05/02/18 at 15:44; Stop at 15:45; Status DC Fentanyl Citrate (Fentanyl 2ml Vial) 100 mcg STK-MED ONCE .ROUTE ; Start at 15:44; Stop 05/02/18 at 15:45; Status DC Midazolam HCl (Versed) 2 mg STK-MED ONCE .ROUTE ; Start 05/02/18 at 15:44; Stop 05/02/18 at 15:45; Status DC Succinylcholine Chloride (Anectine) 200 mg STK-MED ONCE .ROUTE ; Start 05/02/18 at 16:40; Stop 05/02/18 at 16:41; Status DC Ephedrine Sulfate (ePHEDrine PF IN SALINE SYRINGE) 50 mg STK-MED ONCE IV ; Start 05/02/18 at 17:40; Stop 05/02/18 at 17:41; Status DC Sevoflurane (Ultane) 30 ml STK-MED ONCE IH ; Start 05/02/18 at 17:41; Stop 05/02 at 17:42; Status DC Insulin Human Lispro (HumaLOG) 15 units 1X ONCE SQ ; Start 05/04/18 at 20:45; Stop 05/04/18 at 20:46; Status Cancel Insulin Human Lispro (HumaLOG) 15 units 1X ONCE SQ Last administered on at 21:07; Start 05/04/18 at 20:45; Stop 05/04/18 at 20:46; Status DC Active Scripts Active Reported Prazosin Hcl 5 Mg Capsule 1 Cap PO QHS Amlodipine Besylate 10 Mg Tablet 10 Mg PO DAILY Remeron (Mirtazapine) 45 Mg Tablet 1 Tab PO QHS Accu-Chek Guide Test Strip (Blood Sugar Diagnostic) 1 Each Strip 1 Each MC QID Levothyroxine Sodium 100 Mcg Tablet 1 Tab PO DAILY Tums (Calcium Carbonate) 200 Mg Tab.chew 400 Mg PO TID PRN PRN Humulin N (Nph, Human Insulin Isophane) 100 Unit/1 Ml Vial 48 Unit SQ DAILYWBKFT Metformin Hcl 500 Mg Tablet 1,000 Mg PO BIDWMEALS Humulin N (Nph, Human Insulin Isophane) 100 Unit/1 Ml Vial 52 Unit SQ DAILYBFRSUP Lisinopril-Hctz 20-25 Mg Tab (Lisinopril/Hydrochlorothiazide) 1 Each Tablet 1 Tab PO DAILY Vitals/I & O Vital Sign - Last 24 Hours 05/04/18 05/04/18 05/04/18 05/04/18 11:00 15:00 19:00 19:47 Temp 97.9 97.9 98.2 97.9 97.9 98.2 Pulse 75 70 86 Resp 18 18 17 B/P (MAP) 143/70 (94) 130/60 (83) 162/74 (103) Pulse Ox 96 95 97 O2 Delivery Room Air Room Air Room Air Room Air 05/04/18 05/04/18 05/05/18 05/05/18 21:00 23:00 03:00 07:00 Temp 97.7 97.9 96.6 97.7 97.9 96.6 Pulse 86 81 83 81 Resp 15 16 17 B/P (MAP) 162/74 141/54 (83) 147/79 (101) 134/70 (91) Pulse Ox 96 96 97 O2 Delivery Room Air Room Air Room Air 05/05/18 08:16 Pulse 83 B/P (MAP) 147/79 Intake and Output 05/04/18 05/04/18 05/05/18 15:00 23:00 07:00 Intake Total 360 ml 180 ml 100 ml Output Total 725 ml 2050 ml 0 ml Balance -365 ml -1870 ml 100 ml ALBA RICH MD May 05, 2018 10:31
[2018-05-05 11:00] VITALS: BP 126/54
[2018-05-05] MEDS: LACTOBACILLUS RHAMNOSUS GG 1 CAPSULE. PO SCH ×2 (11:06→20:34)
--- NOTE | 2018-05-05 12:04 | PDOC ---
SUBJECTIVE ROS No new concerns,states feeling better OBJECTIVE Vital Signs Vital Signs Date Time Temp Pulse Resp B/P (MAP) Pulse Ox O2 Delivery O2 Flow Rate FiO2 05/05/18 11:00 97.7 85 18 126/54 (78) 96 Room Air 97.7 I & 0 Intake and Output 05/05/18 07:00 Intake Total 640 ml Output Total 2775 ml Balance -2135 ml Intake Oral 540 ml IV Total 100 ml Output Urine Total 2775 ml # Voids 1 PHYSICAL EXAM Physical Exam GENERAL: NAD HEENT: Oral mucosa moist. NECK: Supple. CHEST: Lungs clear. HEART: S1 and S2. ABDOMEN: Soft. Bowel sounds present. Obese. 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 Renal Sonogram done Creat in Aug 2017.9, No Prior labs available in our records HTN:Current BP meds reviewed. Blood pressures are relatively well controlled currently on present medications. No changes made Osteomyelitis of the left fifth toe: Defer to infectious disease physicians and specialists. Left third fourth and fifth toe amputations- 05/02 DM- Uncontrolled Discussed with patient, recommned Renal follow up as OP after dc Will sign off COMMENT/RELEVANT DATA Meds Current Medications Medications (Trade) Dose Ordered Sig/Shoshana Start Time Stop Time Status Last Admin Dose Admin Acetaminophen (Tylenol) 500 mg PRN Q6HRS PRN 04/29/18 11:45 05/04/18 21:01 500 MG Amlodipine Besylate (Norvasc) 10 mg DAILY 04/29/18 12:00 05/05/18 08:16 10 MG Calcium Carbonate/ Glycine (Tums) 500 mg TID PRN PRN 04/29/18 11:45 Ceftriaxone Sodium 2 gm/ Dextrose 100 ml @ 200 mls/hr ONCE ONCE 04/28/18 21:15 04/28/18 21:44 DC 04/28/18 21:15 200 MLS/HR Clonidine HCl (Catapres) 0.1 mg PRN Q1HR PRN 04/29/18 11:45 Daptomycin 770 mg/ Sodium Chloride 50 ml @ 100 mls/hr Q24H 04/29/18 18:00 05/04/18 09:28 DC 05/03/18 17:27 100 MLS/HR Dexamethasone Sodium Phosphate (Decadron) 20 mg STK-MED ONCE 05/02/18 15:44 05/02/18 15:45 DC Dextrose (Dextrose 50%-Water Syringe) 12.5 gm PRN Q15MIN PRN 04/29/18 11:45 Ephedrine Sulfate (ePHEDrine PF IN SALINE SYRINGE) 50 mg STK-MED ONCE 05/02/18 17:40 05/02/18 17:41 DC Famotidine (Pepcid Vial) 20 mg STK-MED ONCE 05/02/18 15:44 05/02/18 15:45 DC Fentanyl Citrate (Fentanyl 2ml Vial) 100 mcg STK-MED ONCE 05/02/18 15:44 05/02/18 15:45 DC Hydromorphone HCl (Dilaudid) 0.5 mg PRN Q10MIN PRN 05/02/18 08:00 05/03/18 07:59 DC Influenza Virus Vaccine (Afluria Trivalent [id number] Syringe) 0.5 ml ONCE ONCE 04/29/18 09:00 04/29/18 09:01 DC 04/29/18 08:17 0.5 ML Info (Do NOT chart on this placeholder) 1 each 1X ONCE 04/29/18 09:00 04/29/18 09:01 UNV Insulin Glargine (Lantus) 52 units DAILYBFRSUP 04/29/18 17:00 05/04/18 17:40 52 UNITS Insulin Human Lispro (HumaLOG) 15 units 1X ONCE 05/04/18 20:45 05/04/18 20:46 DC 05/04/18 21:07 15 UNITS Lactobacillus Rhamnosus (Culturelle) 1 cap BID 04/29/18 21:00 05/05/18 11:06 1 CAP Levothyroxine Sodium (Synthroid) 100 mcg DAILY07 04/29/18 12:00 05/05/18 05:47 100 MCG Lidocaine HCl (Xylocaine-Mpf 1% 2ml Vial) 2 ml PRN 1X PRN 05/02/18 08:00 05/03/18 07:59 DC Magnesium Sulfate 50 ml @ 25 mls/hr PRN DAILY PRN 9/23/18 07:15 Metronidazole (Flagyl) 500 mg Q8HRS 05/02/18 14:00 05/05/18 05:47 500 MG Midazolam HCl (Versed) 2 mg STK-MED ONCE 05/02/18 15:44 05/02/18 15:45 DC Mirtazapine (Remeron) 45 mg QHS 04/29/18 21:00 05/04/18 21:01 45 MG Morphine Sulfate (Morphine Sulfate) 1 mg PRN Q10MIN PRN 05/02/18 08:00 05/03/18 07:59 DC Mupirocin (Bactroban) 1 pelon 1X ONCE 04/28/18 21:30 04/28/18 21:31 DC 04/28/18 21:30 1 PELON Non-Formulary Medication (Blood Sugar Diagnostic (Accu-Chek Guide Test Strip)) 1 each QID 04/29/18 13:00 UNV Ondansetron HCl (Zofran Odt) 4 mg PRN Q6HRS PRN 04/29/18 11:45 Ondansetron HCl (Zofran) 4 mg STK-MED ONCE 05/02/18 15:44 05/02/18 15:45 DC Prazosin HCl (Minipress) 5 mg QHS 04/29/18 21:00 05/04/18 21:00 5 MG Prochlorperazine Edisylate (Compazine) 5 mg PACU PRN PRN 05/02/18 08:00 05/03/18 07:59 DC Propofol 20 ml @ As Directed STK-MED ONCE 05/02/18 15:44 05/02/18 15:45 DC Ringer's Solution 1,000 ml @ 30 mls/hr Q24H 05/02/18 07:46 05/02/18 19:45 DC 05/02/18 15:45 30 MLS/HR Sevoflurane (Ultane) 30 ml STK-MED ONCE 05/02/18 17:41 05/02/18 17:42 DC Sodium Chloride 1,000 ml @ 1,000 mls/hr 1X ONCE 04/28/18 21:15 04/28/18 22:14 DC 04/28/18 22:00 1,000 MLS/HR Succinylcholine Chloride (Anectine) 200 mg STK-MED ONCE 05/02/18 16:40 05/02/18 16:41 DC Vancomycin HCl 2 gm/Sodium Chloride 500 ml @ 250 mls/hr 1X ONCE 04/28/18 22:00 04/28/18 23:59 DC 04/29/18 00:17 250 MLS/HR Lab Laboratory Tests Test 05/04/18 16:49 05/04/18 20:28 05/05/18 04:10 05/05/18 07:25 Glucose (Fingerstick) 174 mg/dL (70-99) 269 mg/dL (70-99) 97 mg/dL (70-99) White Blood Count 9.3 x10^3/uL (4.0-11.0) Red Blood Count 4.14 x10^6/uL (4.30-5.70) Hemoglobin 12.3 g/dL (13.0-17.5) Hematocrit 35.6 % (39.0-53.0) Mean Corpuscular Volume 86 fL (79-100) Mean Corpuscular Hemoglobin 30 pg (25-35) Mean Corpuscular Hemoglobin Concent 35 g/dL (31-37) Red Cell Distribution Width 14.0 % (11.5-14.5) Platelet Count 285 x10^3/uL (140-400) Neutrophils (%) (Auto) 56 % (31-73) Lymphocytes (%) (Auto) 35 % (24-48) Monocytes (%) (Auto) 7 % (0-9) Eosinophils (%) (Auto) 1 % (0-3) Basophils (%) (Auto) 1 % (0-3) Neutrophils # (Auto) 5.2 x10^3uL (1.8-7.7) Lymphocytes # (Auto) 3.3 x10^3/uL (1.0-4.8) Monocytes # (Auto) 0.6 x10^3/uL (0.0-1.1) Eosinophils # (Auto) 0.1 x10^3/uL (0.0-0.7) Basophils # (Auto) 0.1 x10^3/uL (0.0-0.2) Sodium Level 143 mmol/L (136-145) Potassium Level 3.9 mmol/L (3.5-5.1) Chloride Level 104 mmol/L (98-107) Carbon Dioxide Level 30 mmol/L (21-32) Anion Gap 9 (6-14) Blood Urea Nitrogen 26 mg/dL (8-26) Creatinine 1.2 mg/dL (0.7-1.3) Estimated GFR (Cockcroft-Gault) 62.0 Glucose Level 74 mg/dL (70-99) Calcium Level 9.4 mg/dL (8.5-10.1) Phosphorus Level 4.3 mg/dL (2.6-4.7) Magnesium Level 1.9 mg/dL (1.8-2.4) Albumin 3.1 g/dL (3.4-5.0) Test 05/05/18 11:41 Glucose (Fingerstick) 179 mg/dL (70-99) Results All relevant outside records, renal labs, imaging studies, telemetry/EKG's were reviewed. IVET MARTINES MD May 05, 2018 12:04
[2018-05-05 15:00] VITALS: BP 138/44
--- NOTE | 2018-05-05 16:39 | PDOC ---
PROGRESS NOTES Subjective Subjective Problems overnight: No complaints regarding the left foot, he was fit with his half shoe and walking around some it seems to be working reasonably well Objective Vital Signs Vital Signs Date Time Temp Pulse Resp B/P (MAP) Pulse Ox O2 Delivery O2 Flow Rate FiO2 05/05/18 15:00 98.4 83 18 138/44 (75) 96 Room Air 98.4 05/02/18 18:37 2 Physical Exam Dressings were changed he has some slight maceration at the wound edges but overall good viable tissue. His foot was redressed Labs Laboratory Tests Test 05/03/18 17:18 05/03/18 20:42 05/04/18 05:00 05/04/18 07:37 Glucose (Fingerstick) 197 mg/dL (70-99) 259 mg/dL (70-99) 179 mg/dL (70-99) White Blood Count 12.0 x10^3/uL (4.0-11.0) Red Blood Count 4.12 x10^6/uL (4.30-5.70) Hemoglobin 12.1 g/dL (13.0-17.5) Hematocrit 35.5 % (39.0-53.0) Mean Corpuscular Volume 86 fL (79-100) Mean Corpuscular Hemoglobin 29 pg (25-35) Mean Corpuscular Hemoglobin Concent 34 g/dL (31-37) Red Cell Distribution Width 14.1 % (11.5-14.5) Platelet Count 297 x10^3/uL (140-400) Neutrophils (%) (Auto) 78 % (31-73) Lymphocytes (%) (Auto) 16 % (24-48) Monocytes (%) (Auto) 5 % (0-9) Eosinophils (%) (Auto) 1 % (0-3) Basophils (%) (Auto) 0 % (0-3) Neutrophils # (Auto) 9.4 x10^3uL (1.8-7.7) Lymphocytes # (Auto) 1.9 x10^3/uL (1.0-4.8) Monocytes # (Auto) 0.6 x10^3/uL (0.0-1.1) Eosinophils # (Auto) 0.1 x10^3/uL (0.0-0.7) Basophils # (Auto) 0.1 x10^3/uL (0.0-0.2) Sodium Level 139 mmol/L (136-145) Potassium Level 4.5 mmol/L (3.5-5.1) Chloride Level 102 mmol/L (98-107) Carbon Dioxide Level 30 mmol/L (21-32) Anion Gap 7 (6-14) Blood Urea Nitrogen 28 mg/dL (8-26) Creatinine 1.5 mg/dL (0.7-1.3) Estimated GFR (Cockcroft-Gault) 47.9 Glucose Level 198 mg/dL (70-99) Calcium Level 8.9 mg/dL (8.5-10.1) Phosphorus Level 3.5 mg/dL (2.6-4.7) Magnesium Level 1.9 mg/dL (1.8-2.4) Albumin 3.2 g/dL (3.4-5.0) Test 05/04/18 10:47 05/04/18 16:49 05/04/18 20:28 05/05/18 04:10 Glucose (Fingerstick) 216 mg/dL (70-99) 174 mg/dL (70-99) 269 mg/dL (70-99) White Blood Count 9.3 x10^3/uL (4.0-11.0) Red Blood Count 4.14 x10^6/uL (4.30-5.70) Hemoglobin 12.3 g/dL (13.0-17.5) Hematocrit 35.6 % (39.0-53.0) Mean Corpuscular Volume 86 fL (79-100) Mean Corpuscular Hemoglobin 30 pg (25-35) Mean Corpuscular Hemoglobin Concent 35 g/dL (31-37) Red Cell Distribution Width 14.0 % (11.5-14.5) Platelet Count 285 x10^3/uL (140-400) Neutrophils (%) (Auto) 56 % (31-73) Lymphocytes (%) (Auto) 35 % (24-48) Monocytes (%) (Auto) 7 % (0-9) Eosinophils (%) (Auto) 1 % (0-3) Basophils (%) (Auto) 1 % (0-3) Neutrophils # (Auto) 5.2 x10^3uL (1.8-7.7) Lymphocytes # (Auto) 3.3 x10^3/uL (1.0-4.8) Monocytes # (Auto) 0.6 x10^3/uL (0.0-1.1) Eosinophils # (Auto) 0.1 x10^3/uL (0.0-0.7) Basophils # (Auto) 0.1 x10^3/uL (0.0-0.2) Sodium Level 143 mmol/L (136-145) Potassium Level 3.9 mmol/L (3.5-5.1) Chloride Level 104 mmol/L (98-107) Carbon Dioxide Level 30 mmol/L (21-32) Anion Gap 9 (6-14) Blood Urea Nitrogen 26 mg/dL (8-26) Creatinine 1.2 mg/dL (0.7-1.3) Estimated GFR (Cockcroft-Gault) 62.0 Glucose Level 74 mg/dL (70-99) Calcium Level 9.4 mg/dL (8.5-10.1) Phosphorus Level 4.3 mg/dL (2.6-4.7) Magnesium Level 1.9 mg/dL (1.8-2.4) Albumin 3.1 g/dL (3.4-5.0) Test 05/05/18 07:25 05/05/18 11:41 Glucose (Fingerstick) 97 mg/dL (70-99) 179 mg/dL (70-99) Laboratory Tests Test 05/04/18 16:49 05/04/18 20:28 05/05/18 04:10 05/05/18 07:25 Glucose (Fingerstick) 174 mg/dL (70-99) 269 mg/dL (70-99) 97 mg/dL (70-99) White Blood Count 9.3 x10^3/uL (4.0-11.0) Red Blood Count 4.14 x10^6/uL (4.30-5.70) Hemoglobin 12.3 g/dL (13.0-17.5) Hematocrit 35.6 % (39.0-53.0) Mean Corpuscular Volume 86 fL (79-100) Mean Corpuscular Hemoglobin 30 pg (25-35) Mean Corpuscular Hemoglobin Concent 35 g/dL (31-37) Red Cell Distribution Width 14.0 % (11.5-14.5) Platelet Count 285 x10^3/uL (140-400) Neutrophils (%) (Auto) 56 % (31-73) Lymphocytes (%) (Auto) 35 % (24-48) Monocytes (%) (Auto) 7 % (0-9) Eosinophils (%) (Auto) 1 % (0-3) Basophils (%) (Auto) 1 % (0-3) Neutrophils # (Auto) 5.2 x10^3uL (1.8-7.7) Lymphocytes # (Auto) 3.3 x10^3/uL (1.0-4.8) Monocytes # (Auto) 0.6 x10^3/uL (0.0-1.1) Eosinophils # (Auto) 0.1 x10^3/uL (0.0-0.7) Basophils # (Auto) 0.1 x10^3/uL (0.0-0.2) Sodium Level 143 mmol/L (136-145) Potassium Level 3.9 mmol/L (3.5-5.1) Chloride Level 104 mmol/L (98-107) Carbon Dioxide Level 30 mmol/L (21-32) Anion Gap 9 (6-14) Blood Urea Nitrogen 26 mg/dL (8-26) Creatinine 1.2 mg/dL (0.7-1.3) Estimated GFR (Cockcroft-Gault) 62.0 Glucose Level 74 mg/dL (70-99) Calcium Level 9.4 mg/dL (8.5-10.1) Phosphorus Level 4.3 mg/dL (2.6-4.7) Magnesium Level 1.9 mg/dL (1.8-2.4) Albumin 3.1 g/dL (3.4-5.0) Test 05/05/18 11:41 Glucose (Fingerstick) 179 mg/dL (70-99) Assessment Assessment POD# [], S/P [left third fourth and fifth toe amputations] Plan Plan of Care Continue I V antibiotics per infectious disease Weightbearing with half shoe Daily dressing changes to left foot GIA KHAN MD May 05, 2018 16:39
[2018-05-05] MEDS: INSULIN GLARGINE 300 UNITS/3 ML INSULN.PEN. SQ SCH (17:37)
[2018-05-05 19:00] VITALS: BP 126/69
[2018-05-05] MEDS: ACETAMINOPHEN 500 MG TABLET PO PRN (20:33)
[2018-05-05] MEDS: MIRTAZAPINE 15 MG TABLET PO SCH (20:34)
[2018-05-05] MEDS: cefTRIAXone SODIUM 2 GM in IV DEXTROSE 5% 100ML 100 ML IV SCH (20:34)
[2018-05-05] MEDS: PRAZOSIN 1 MG CAPSULE. PO SCH (20:34)
[2018-05-05 22:49] VITALS: BP 116/62
[2018-05-06 02:53] VITALS: BP 110/63
[2018-05-06] MEDS: metroNIDAZOLE 500 MG TABLET PO SCH ×2 (05:48→14:43)
[2018-05-06] MEDS: LEVOTHYROXINE 100 MCG TABLET PO SCH (05:48)
[2018-05-06 07:00] VITALS: BP 116/65
--- NOTE | 2018-05-06 07:17 | PDOC ---
Infectious Disease Note Subjective Subjective Pt says better no n/v/d/sob/rash or aches ROS ROS o/w neg Vital Sign Vital Signs Vital Signs Date Time Temp Pulse Resp B/P (MAP) Pulse Ox O2 Delivery O2 Flow Rate FiO2 05/06/18 02:53 97.5 84 18 110/63 (79) 94 Room Air 97.5 Physical Exam PHYSICAL EXAM GENERAL: Well-developed and well-nourished male lying comfortably in bed, in no acute distress. HEENT: Anicteric. Oral mucosa moist. NECK: Supple. CHEST: Lungs clear. HEART: S1 and S2. ABDOMEN: Soft. Bowel sounds present. Obese. No hepatosplenomegaly. EXTREMITIES: No edema, no cyanosis and no clubbing. Left foot incision is intact. Mild drainage. No pus SKIN; No rash Labs Lab Laboratory Tests Test 05/05/18 07:25 05/05/18 11:41 05/05/18 16:32 05/05/18 20:40 Glucose (Fingerstick) 97 mg/dL (70-99) 179 mg/dL (70-99) 236 mg/dL (70-99) 182 mg/dL (70-99) Micro Blood cult 04/28 BLD CULT RESULT 1 Final Staphylococcus aureus Most isolates of Staphylococcus sp. produce a beta- lactamase enzyme rendering them resistant to penicillin. Please contact the laboratory if penicillin is being considered for therapy. Based on susceptibility to oxacillin this isolate would be susceptible to: * Beta-lactam/beta-lactamase inhibitor combinations; such as: Amoxicillin-clavulanic acid Ampicillin-sulbactam * Antistaphylococcal cephems; such as: Cefaclor Cefuroxime * Antistaphylococcal carbapenems; such as: Imipenem Meropenem ANTIMICROBIAL SUSCEPTIBILITY Final Comment S = Susceptible; I = Intermediate; R = Resistant P = Positive; N = Negative MICS are expressed in micrograms per mL Antibiotic RSLT#1 RSLT#2 RSLT#3 RSLT#4 Ciprofloxacin S<=0.5 Gentamicin S<=0.5 Levofloxacin S =0.25 Linezolid S =2 Moxifloxacin S<=0.25 Nitrofurantoin S<=16 Oxacillin S<=0.25 Quinupristin/Dalfopristin S<=0.25 CONTINUED ON NEXT PAGE RUN DATE: 05/03/18 PAGE 2 RUN TIME: [address] [facility] [address] [place] [address] Felice Capellan M.D., [employer] SPEC: [id number] PATIENT: MISAEL DON [id number] ( Continued) Procedure Result ANTIMICROBIAL SUSCEPTIBILITY Final (continued) Rifampin S<=0.5 Tetracycline S<=1 Trimethoprim/Sulfa S<=10 Vancomycin S<=0.5 04/28 - Blood BLOOD CULTURE LC Preliminary Preliminary report BLD CULT RESULT 1 Preliminary Staphylococcus aureus Microbiology 04/30/18 Blood Culture - Preliminary, Resulted NO GROWTH AFTER 2 DAYS Objective Assessment MSSA sepsis - POA 04/28 - repeat cults - neg 05/03 s/p Left fifth toe diabetic foot wound infection/OM s/p amp 05/02 - cults ? anaerobes Leukocytosis - post op and post Dexamentasone History of left second toe amputation for osteomyelitis. Diabetes mellitus with neuropathy. Acute kidney injury. Plan Plan of Care Midline today Discontinue empiric ceftriaxone begin Cefazolin through 05/31 Cont po Flagyl through 05/13 Cont Local care Will need Q Wednesday CBC/Cr/sed rate faxed to [phone] Can F/u ID office 2 weeks [phone] Rx in chart Ok to transfer ID to sign off RAFAEL TOLEDO MD May 06, 2018 07:17
[2018-05-06 07:35] LABS: BASO # 0.1 x10^3/uL (0.0-0.2); BASO % 1 % (0-3); EOS # 0.1 x10^3/uL (0.0-0.7); EOS % 2 % (0-3); HEMATOCRIT 36.2 % (39.0-53.0); HEMOGLOBIN 12.6 g/dL (13.0-17.5); LYMPH # 2.4 x10^3/uL (1.0-4.8); LYMPH % 35 % (24-48); MEAN CORPUSCULAR HEMOGLOBIN 30 pg (25-35); MEAN CORPUSCULAR HGB CONC 35 g/dL (31-37); MEAN CORPUSCULAR VOLUME 86 fL (79-100); MONO # 0.5 x10^3/uL (0.0-1.1); MONO % 8 % (0-9); NEUT # 3.7 x10^3uL (1.8-7.7); NEUT % 54 % (31-73); PLATELET COUNT 300 x10^3/uL (140-400); WHITE BLOOD COUNT 6.9 x10^3/uL (4.0-11.0)
[2018-05-06 07:40] LABS: ALBUMIN 3.1 g/dL (3.4-5.0); CALCIUM 9.5 mg/dL (8.5-10.1); CREATININE 1.3 mg/dL (0.7-1.3); GFR 56.5; PHOSPHORUS 3.4 mg/dL (2.6-4.7); POTASSIUM 4.2 mmol/L (3.5-5.1)
[2018-05-06] MEDS: ceFAZolin SODIUM 2 GM in IV DEXTROSE 5% 50 ML IV SCH ×2 (08:00→14:43)
[2018-05-06] MEDS: amLODIPine BESYLATE 10 MG TABLET PO SCH (08:27)
[2018-05-06] MEDS: LACTOBACILLUS RHAMNOSUS GG 1 CAPSULE. PO SCH (08:27)
[2018-05-06] MEDS: INSULIN LISPRO 300 UNITS/3 ML INSULN.PEN. SQ SCH ×3 (08:30→18:01)
--- NOTE | 2018-05-06 09:11 | PATHOLOGY ---
[facility] Accession Number: [id number] . 01 Material submitted: . LEFT FOOT 3RD, 4TH, 5TH TOES . 01 Clinician provided ICD-10: M86.8X7 . 01 Clinical history: . Left foot osteomyelitis . 02 Diagnosis: Left foot third, fourth, and fifth toe amputation: - Focal ulceration of anterior/lateral fifth toe with extensive acute cellulitis and extensive acute osteomyelitis. (JPM:francisco; 05/05/2018) QMS/05/05/2018 . 02 Comment: There is acute osteomyelitis involving the proximal phalangeal bone of the fifth toe, and acute cellulitis closely approaches the proximal soft tissue amputation margin of the fifth toe. (JPM:francisco; 05/05/2018) . 02 Electronically signed: . Felice Capellan MD, Pathologist NPI- [id number] . 01 Gross description: . The specimen is received in formalin, labeled "Violet Painter, left foot third, fourth, fifth toes". Received are three amputated digits measuring 6.6 6.3 x 2.9 cm in greatest dimensions. The bone margins are smooth and concave in appearance, consistent with disarticulation. The bone and soft tissue margins are inked as follows: Third toe-black, fourth toe-blue, fifth toe-red. The nails are present displaying a pale duval and grossly unremarkable appearance. The epidermal surfaces of toes 3 and 4 are pale duval in appearance with no grossly distinct nodules or lesions. On the anterior/lateral aspect of toe five, there is a well-circumscribed, focally ulcerated, light duval lesion measuring 1.8 x 1.6 cm, which is 0.3 cm from the skin margin. The remainder of the epidermal surface is pale duval mendoza-duval and shaggy in appearance. The specimen is submitted representatively as follows: . A1 proximal margin of third toe, following decalcification A2 proximal margin of fourth toe, following decalcification A3-A4 full-thickness longitudinal cross-section of fifth toe, submitted from proximal to distal aspects, following decalcification A5 cross-section of fifth toe lesion to include underlying bone, following decalcification. (CAA; 05/04/2018) QAC/QAC . 02 Pathologist provided ICD-10: M86.172 . 02 CPT . 752883, [id number] Specimen Comment: A courtesy copy of this report has been sent to Specimen Comment: [phone], , . Specimen Comment: Report sent to , and Specimen Comment: A duplicate report has been generated due to demographic updates. Performed at: 01 [facility] [address], [place] [id number] MD Dylon Naik MD Phone: [phone] Performed at: 02 [facility] [address] [place], [place] [id number] MD Felice Capellan MD Phone: [phone]
[2018-05-06 10:28] LABS: % EOS 3 % (0-5); % LYMPHS 41 % (24-48); % METAS 2 % (0-0); % MONOS 6 % (0-10); % SEGS 48 % (35-66); NUCLEATED RBC 1; PLT ESTIMATE ADEQUATE (ADEQUATE)
[2018-05-06 11:00] VITALS: BP 127/72
[2018-05-06] MEDS ORDERED: LIDOCAINE WITH 8.4% SOD BICARB 3 ML DISP.SYRIN. ONE (13:48)
[2018-05-06] MEDS ORDERED: LIDOCAINE WITH 8.4% SOD BICARB 3 ML DISP.SYRIN. INJ ONE (14:30)
[2018-05-06 15:00] VITALS: BP 162/81
[2018-05-06] MEDS ORDERED: LACT1CAP19 PO (15:51)
--- NOTE | 2018-05-06 15:52 | PDOC3 ---
Discharge Summary [facility] Discharge Date: May 06, 2018 Final Diagnosis Problems Medical Problems: (1) Cellulitis of toe of left foot Status: Acute Brief Hospital Course Mr. Painter is a 57 old M who presented with toe cellulitis. Seen by ID. Paz today Discontinue empiric ceftriaxone begin Cefazolin through 05/31 Cont po Flagyl through 05/13 Cont Local care Will need Q Wednesday CBC/Cr/sed rate faxed to [phone] Can F/u ID office 2 weeks [phone] CONDITION AT DISCHARGE: Improved Scheduled Amlodipine Besylate (Amlodipine Besylate), 10 MG PO DAILY, (Reported) Blood Sugar Diagnostic (Accu-Chek Guide Test Strip), 1 EACH MC QID, (Reported) Levothyroxine Sodium (Levothyroxine Sodium), 1 TAB PO DAILY, (Reported) Metronidazole (Metronidazole), 1 TAB PO TID, (Reported) Mirtazapine (Remeron), 1 TAB PO QHS, (Reported) Nph, Human Insulin Isophane (Humulin N), 52 UNIT SQ DAILYBFRSUP, (Reported) Nph, Human Insulin Isophane (Humulin N), 48 UNIT SQ DAILYWBKFT, (Reported) Prazosin Hcl (Prazosin Hcl), 1 CAP PO QHS, (Reported) Scheduled PRN Calcium Carbonate (Tums), 400 MG PO TID PRN PRN for GI SYMPTOMS, (Reported) Discontinued Medications Lisinopril/Hydrochlorothiazide (Lisinopril-Hctz 20-25 Mg Tab), 1 TAB PO DAILY, ( Reported) WAI ANGELES MD May 06, 2018 15:51
--- NOTE | 2018-05-06 16:34 | RAD ---
Exam: Fluoroscopic and ultrasound guided right percutaneous inserted central venous catheter placement 05/06/2018 4:29 PM .Indication: snf IV antibiotic use Technique: Informed oral and written consent were obtained. The right upper extremity was prepped and draped using sterile barrier technique. All elements of maximal sterile barrier technique including the use of a cap, mask, sterile gown, sterile gloves, large sterile sheet, appropriate hand hygiene, and 2% chlorhexidine for cutaneous antisepsis (or acceptable alternative antiseptic per current guidelines) were followed for this procedure.. Real-time ultrasound demonstrated a patent right basilic vein which was prepped and draped in usual sterile fashion. 1% lidocaine used for local anesthesia. Using real-time ultrasound guidance the access needle percutaneously punctured the selected right basilic vein. Reference ultrasound images were saved to the medical record. A guidewire was advanced through the needle to the cavoatrial junction, and a peel-away sheath placed. The catheter was cut to length and inserted through the peel-away sheath such that its tip is at the cavoatrial junction. The wire and sheath were removed, and the catheter secured in place, and a sterile dressing was applied. Catheter was found to flush and aspirate normally. No immediate complications are identified. FLUORO TIME: 1.3 MIN DOSE AREA PRODUCT: 4Gycm2 Impression: Ultrasound and fluoroscopically guided placement of a right upper extremity PICC line.
[2018-05-06] MEDS ORDERED: METR500T8 PO (17:54)
[2018-05-06] MEDS: INSULIN GLARGINE 300 UNITS/3 ML INSULN.PEN. SQ SCH (18:08)
[2018-05-06 19:00] VITALS: BP 164/60
[2018-05-06] MEDS ORDERED: LACTOBACILLUS RHAMNOSUS GG 1 CAPSULE. PO SCH (21:00)
[2018-05-07] MEDS ORDERED: NPH HUMAN INSULIN ISOPHANE SQ SCH (08:00)
== END 2018-05-06 20:31 | disposition home or self-care (01) | DRG 853 ==
LOC: EEVIPCON 19:00 → ER 19:00 → 5 NORTH 21:05
PROVIDERS: ADMIT Family Medicine; ATTEND Family Medicine
PROC: 0Y6N0ZD Detachment at Left Foot, Partial 4th Ray, Open Approach (ICD-10-PCS; 2018-05-02)
PROC: 0Y6N0ZF Detachment at Left Foot, Partial 5th Ray, Open Approach (ICD-10-PCS; 2018-05-02)
PROC: 0Y6N0ZC Detachment at Left Foot, Partial 3rd Ray, Open Approach (ICD-10-PCS; principal; 2018-05-02 16:00)
PROC: 02HV33Z Insertion of Infusion Device into Superior Vena Cava, Percutaneous Approach (ICD-10-PCS; 2018-05-06)
PROC: B5181ZA Fluoroscopy of Superior Vena Cava using Low Osmolar Contrast, Guidance (ICD-10-PCS; 2018-05-06)
PROC: B548ZZA Ultrasonography of Superior Vena Cava, Guidance (ICD-10-PCS; 2018-05-06)
DX: A41.01 Sepsis due to Methicillin susceptible Staphylococcus aureus (principal); N17.0 Acute kidney failure with tubular necrosis; M86.8X7 Other osteomyelitis, ankle and foot; E11.22 Type 2 diabetes mellitus with diabetic chronic kidney disease; E11.40 Type 2 diabetes mellitus with diabetic neuropathy, unspecified; E11.621 Type 2 diabetes mellitus with foot ulcer; E11.69 Type 2 diabetes mellitus with other specified complication; I12.9 Hypertensive chronic kidney disease with stage 1 through stage 4 chronic kidney disease, or unspecified chronic kidney disease; N18.3 Chronic kidney disease, stage 3 (moderate); E66.9 Obesity, unspecified; E78.00 Pure hypercholesterolemia, unspecified; E78.5 Hyperlipidemia, unspecified; F43.10 Post-traumatic stress disorder, unspecified; K21.9 Gastro-esophageal reflux disease without esophagitis; L03.032 Cellulitis of left toe; L97.529 Non-pressure chronic ulcer of other part of left foot with unspecified severity; E03.9 Hypothyroidism, unspecified; N40.0 Benign prostatic hyperplasia without lower urinary tract symptoms; Z91.010 Allergy to peanuts; Z68.39 Body mass index [BMI] 39.0-39.9, adult; Z79.4 Long term (current) use of insulin; Z89.422 Acquired absence of other left toe(s); Z79.899 Other long term (current) drug therapy
CPT/HCPCS: 36415; 36569; 73660; 73718; 76770; 76937; 77001; 80053; 80069; 81001; 82570; 82962; 83036; 83605; 83735; 84156; 84550; 85007; 85018; 85025; 85651; 86140; 87040; 87071; 87075; 87186; 87205; 87641; 88305; 88311; 90471; 90756; 96361; 96365; 96375; C1751; C1892; J0330; J0690; J0696; J0878; J1100; J1815; J2250; J2405; J2704; J3010; J3370; J7030; J7040; J7120; S0028; 97116; 99285-25; A4461; Q2035